=== PATIENT | female | born 1930 | race Caucasian/White ===

== ENCOUNTER 2017-07-12 14:13 | Inpatient (IN) ==
[2017-07-12] MEDS ORDERED: 0.9 % SODIUM CHLORIDE 1,000 ML IV ONE ×2 (14:41→16:56)
--- NOTE | 2017-07-12 14:59 | Emergency Department Note ---
Weakness HPI - General Chief complaint: Weakness Stated complaint: weakness, possible UTI, shaking Time Seen by Provider: 07/12/17 14:23 Source: patient Mode of arrival: wheelchair Limitations: no limitations - History of Present Illness HPI Narrative: 87-year-old female with a history of increased generalized weakness over the past several days. Vital signs are stable patient is afebrile. Denies any urgency frequency or dysuria patient herself states she does not have any weakness she has been able to get up and use the bathroom and sit up however his son states that noticed that she has had some more increased weakness over the past 3 days. There was no loss of consciousness she did have a fall approximately 3 days ago did not hurt herself in any way complaining of no injuries patient denies any cough there is been no chest pain no shortness of breath. Eyes upper respiratory type signs or symptoms - Related Data Home Medications Medication Instructions Recorded Confirmed Carvedilol [Coreg] 25 mg PO BID 04/17/16 07/12/17 Furosemide [Lasix] 40 mg PO BID 04/17/16 07/12/17 HYDROcodone/APAP 5/325MG [[place] 0.5 - 1 tab PO Q4-6HP PRN 04/17/16 07/12/17 5/325Mg] Lisinopril [Zestril] 10 mg PO DAILY 04/17/16 07/12/17 Spironolactone [Aldactone] 25 mg PO BID 04/17/16 07/12/17 cholecalciferol (vitamin D3) 1,000 1,000 unit PO QDAY 90 Days 08/10/16 07/12/17 unit tablet Previous Rx's Medication Instructions Recorded aspirin 81 mg tablet,delayed 81 mg PO DAILY #90 tab 09/14/16 release Allergies Allergy/AdvReac Type Severity Reaction Status Date / Time No Known Drug Allergies Allergy Verified 08/10/16 13:25 Review of Systems All systems ED: reviewed and negative except as stated. Constitutional: Denies: fever, chills Eyes: Denies: eye pain ENT ED: Denies: ear pain Cardiovascular: Denies: chest pain, palpitations Respiratory: Denies: cough Gastrointestinal: Denies: abdominal pain Genitourinary: Denies: urgency Musculoskeletal: Denies: back pain Integumentary: Denies: rash Neurological: Denies: headache, weakness, numbness, paresthesias, confusion, abnormal gait, vertigo Psychiatric: Denies: anxiety Endocrine: Denies: fatigue Hematological/Lymphatic: Denies: easy bleeding Allergic/Immunologic: Denies: facial swelling Past Medical History - Past Medical History Medical history: Reports: arthritis, CHF, coronary artery disease, GERD, hyperlipidemia, hypertension, renal disease Surgical history ED: Reports: angioplasty/stent, other (history of coronary artery disease, venous stasis wound care) Psychiatric history: Reports: anxiety - Social History smoking status: Former smoker Alcohol use: Reports: None Drug use: Reports: none Physical Exam - General Limitations: no limitations Course Vital Signs Temperature 97.5 F 07/12/17 14:14 Pulse Rate 79 07/12/17 14:14 Respiratory Rate 20 07/12/17 14:14 Blood Pressure 86/44 07/12/17 14:14 Pulse Oximetry (%) 100 07/12/17 14:14 Temperature 97.5 F 07/12/17 14:14 Pulse Rate 88 07/12/17 15:46 Respiratory Rate 22 07/12/17 15:46 Blood Pressure 102/37 07/12/17 15:46 Pulse Oximetry (%) 99 07/12/17 15:46 Weakness - MDM Narrative Medical decision making narrative: kidney functin high with cr of 8.3 and bun 153. co2 of 7. abg pending. wbc elevated at 16,000. Dr Garza consulted and he will consult. Hospitalist Dr Bobo consulted as well and has accepted the patient pt states dnr and dni - Lab Data Result diagrams: 07/12/17 14:47 07/12/17 15:12 Lab Results 07/12/17 07/12/17 07/12/17 Range/Units 14:47 14:47 14:47 WBC 16.4 H (4.5-11.0) K/mcL RBC 3.81 L (4.00-5.20) M/mcL Hgb 11.5 L (12.0-15.0) g/dL Hct 33.7 L (36.0-48.0) % POC Hct TNP MCV 88.4 (80.0-100.0) fL MCH 30.2 (26.0-34.0) pg MCHC 34.1 (31.0-36.0) g/dL RDW 14.6 H (11.5-14.5) % Plt Count 246 (140-440) K/mcL MPV 8.2 (7.4-10.4) fL Gran % 86.9 H (38.0-78.0) % Lymph % (Auto) 6.6 L (15.5-49.0) % [place] % (Auto) 5.6 (1.0-12.0) % Eos % (Auto) 0.6 (0.0-7.0) % Baso % (Auto) 0.3 (0.0-2.0) % Gran # 14.3 H (1.8-8.0) K/mcL Lymph # (Auto) 1.1 L (1.5-4.8) K/mcL [place] # (Auto) 0.9 (0.1-0.9) K/mcL Eos # (Auto) 0.1 (0.0-0.7) K/mcL Baso # (Auto) 0 (0.0-0.3) K/mcL VBG Lactic Acid 1.0 (0.5-2.2) mmol/L POC Sodium TNP Sodium (133-145) mmol/L POC Potassium TNP Potassium (3.3-5.1) mmol/L POC Chloride TNP Chloride (96-108) mmol/L Carbon Dioxide (22-30) mmol/L POC Total CO2 TNP Anion Gap (8-16) POC BUN TNP BUN (8-23) mg/dl Creatinine (0.6-1.1) mg/dl POC Creatinine TNP GFR Calculation Glucose (70-105) mg/dL POC Glucose TNP Calcium (8.6-10.4) mg/dl POC WB Ioniz Calcium TNP Total Bilirubin (0.0-1.0) mg/dL AST (0-37) U/l ALT (0-40) U/l Alkaline Phosphatase (39-117) U/L Total Protein (5.9-8.4) gm/dL Albumin (3.2-5.2) gm/dL Globulin (2.2-3.7) gm/dL Albumin/Globulin Ratio (1.0-2.3) Urine Color Urine Appearance Urine pH (5.0-9.0) Ur Specific [place] (1.000-1.035) Urine Protein (NEG) mg/dL Urine Glucose (UA) (NEG) mg/dL Urine Ketones (NEG) mg/dL Urine Occult Blood (<0.03) mg/dL Urine Nitrate (NEG) Urine Bilirubin (NEG) mg/dL Urine Urobilinogen (NEG) mg/dL Ur Leukocyte Esterase (NEG) /uL Ur Culture Indicated? 07/12/17 07/12/17 Range/Units 15:12 15:20 WBC (4.5-11.0) K/mcL RBC (4.00-5.20) M/mcL Hgb (12.0-15.0) g/dL Hct (36.0-48.0) % POC Hct 32.0 L MCV (80.0-100.0) fL MCH (26.0-34.0) pg MCHC (31.0-36.0) g/dL RDW (11.5-14.5) % Plt Count (140-440) K/mcL MPV (7.4-10.4) fL Gran % (38.0-78.0) % Lymph % (Auto) (15.5-49.0) % [place] % (Auto) (1.0-12.0) % Eos % (Auto) (0.0-7.0) % Baso % (Auto) (0.0-2.0) % Gran # (1.8-8.0) K/mcL Lymph # (Auto) (1.5-4.8) K/mcL [place] # (Auto) (0.1-0.9) K/mcL Eos # (Auto) (0.0-0.7) K/mcL Baso # (Auto) (0.0-0.3) K/mcL VBG Lactic Acid (0.5-2.2) mmol/L POC Sodium 129 L Sodium 128 L (133-145) mmol/L POC Potassium 5.2 H Potassium 5.5 H (3.3-5.1) mmol/L POC Chloride 110 H Chloride 97 (96-108) mmol/L Carbon Dioxide 7 L* (22-30) mmol/L POC Total CO2 8 L* Anion Gap 24.0 H (8-16) POC BUN > 140 H* BUN 153 H* (8-23) mg/dl Creatinine 8.3 H* (0.6-1.1) mg/dl POC Creatinine 9.7 H* GFR Calculation 4 Glucose 83 (70-105) mg/dL POC Glucose 78 Calcium 8.3 L (8.6-10.4) mg/dl POC WB Ioniz Calcium 1.01 L Total Bilirubin 0.2 (0.0-1.0) mg/dL AST 11 (0-37) U/l ALT 10 (0-40) U/l Alkaline Phosphatase 82 (39-117) U/L Total Protein 7.1 (5.9-8.4) gm/dL Albumin 3.8 (3.2-5.2) gm/dL Globulin 3.3 (2.2-3.7) gm/dL Albumin/Globulin Ratio 1.2 (1.0-2.3) Urine Color Yellow Urine Appearance Hazy Urine pH 5.0 (5.0-9.0) Ur Specific [place] 1.013 (1.000-1.035) Urine Protein Neg (NEG) mg/dL Urine Glucose (UA) Negative (NEG) mg/dL Urine Ketones Neg (NEG) mg/dL Urine Occult Blood Neg (<0.03) mg/dL Urine Nitrate Neg (NEG) Urine Bilirubin Neg (NEG) mg/dL Urine Urobilinogen Neg (NEG) mg/dL Ur Leukocyte Esterase Neg (NEG) /uL Ur Culture Indicated? No Disposition Pt seen by ATTENDANT CAMPGROUND/PA only: No Clinical Impression: Acute renal failure Qualifiers: Acute renal failure type: unspecified Qualified Code(s): N17.9 - Acute kidney failure, unspecified Disposition: Xfer As Inpt ([facility]) Condition: Undetermined Referrals: Krysten Romero DNP, [employer]CHIE[employer] SAMPLE CLERK [Primary Care Provider] -
--- NOTE | 2017-07-12 15:17 | XRay Report ---
CLINICAL INFORMATION: Weakness COMPARISON: 04/19/2016 FINDINGS: Moderate cardiomegaly is unchanged. Mediastinum and pulmonary vessels are normal. Minor right basilar atelectasis. No infiltrates or effusions IMPRESSION: Moderate stable cardiomegaly no CHF or other acute process Interpreted and Authenticated by: Vincenzo Prabhakar 07/12/17
[2017-07-12 15:21] LABS: Basophils # (Auto) 0 K/mcL (0.0-0.3); Basophils % (Auto) 0.3 % (0.0-2.0); Eosinophils # (Auto) 0.1 K/mcL (0.0-0.7); Eosinophils % (Auto) 0.6 % (0.0-7.0); Granulocytes % (Auto) 86.9 % (38.0-78.0); Lymphocytes # (Auto) 1.1 K/mcL (1.5-4.8); Lymphocytes % (Auto) 6.6 % (15.5-49.0); Mean Cell Volume 88.4 fL (80.0-100.0); Mean Corpuscular HGB Conc 34.1 g/dL (31.0-36.0); Mean Corpuscular Hemoglobin 30.2 pg (26.0-34.0); Monocytes # (Auto) 0.9 K/mcL (0.1-0.9); Monocytes % (Auto) 5.6 % (1.0-12.0); Platelet Count 246 K/mcL (140-440); RBC 3.81 M/mcL (4.00-5.20); Red Cell Distribution Width 14.6 % (11.5-14.5)
[2017-07-12 15:43] LABS: ALT/SGPT 10 U/l (0-40); Albumin 3.8 gm/dL (3.2-5.2); Albumin/Globulin Ratio 1.2 (1.0-2.3); Alkaline Phosphatase 82 U/L (39-117)
[2017-07-12 15:45] LABS: Blood Urea Nitrogen 153 mg/dl (8-23)
[2017-07-12 15:46] LABS: Appearance,Urine HAZY; Bilirubin,Urine NEG (NEG); Color,Urine YELLOW; Glucose,Urine (UA) NEGATIVE (NEG); Leukocyte Esterase,Urine NEG /uL (NEG); Nitrate,Urine NEG (NEG); Protein,Urine NEG (NEG); Specific Gravity,Urine 1.013 (1.000-1.035); Urine Blood NEG mg/dL (<0.03); Urobilinogen,Urine NEG (NEG)
--- NOTE | 2017-07-12 17:16 | Internal Med History&Physical ---
Medical - H&P: HPI Patient information: Note initiated : 07/12/17 at 5:11 pm Patient: Rabia Seals 87 y/o F admitted on for Weakness, Possible UTI, Shaking. History of present illness: Ms. Seals is a 87 year old with a history of dementia, congestive heart failure, mild chronic kidney disease. She reportedly lives at [facility] assisted [facility]. We have a history that she fell about 3 days ago as she was walking out of the bathroom. She states she landed on her behind, and really did not hurt herself. Her son apparently asked that she be transported to the ER today for evaluation, as he was told that she was getting weaker. The patient denies that she has been feeling weak. She says she really does not know why she was sent over. ER evaluation showed very severe acute on chronic kidney failure. She also was noted to have significant leukocytosis, and severely elevated anion gap. She is admitted for further evaluation and treatment of her renal failure. Otherwise, the patient is a very poor historian. She believes she has chronic diarrhea, but otherwise cannot recall any recent fevers or chills, headaches or dizziness, new eye or ear symptoms, sore throat or cough. She denies chest pain or palpitations, shortness of breath or wheezing, abdominal pain, nausea or vomiting, constipation, dysuria. However, she also cannot recall the year, and does not believe that she takes daily medications, although [facility] records indicate she takes numerous medications every day. Medical History Anemia (Chronic) Arthritis (Chronic) CHF (congestive heart failure) (Chronic) Cellulitis (Chronic) Chronic kidney disease (Chronic) Daytime sleepiness (Chronic) sometimes when she is not sleeping well at night Edema of lower extremity (Chronic) wears ENEDINA hose daily History of tobacco use (Chronic) Quit smoking after first MD, 2006 Joint pain (Chronic) left wrist; generalized pain Lower extremity edema (Chronic) Memory difficulties (Chronic) Other primary cardiomyopathies (Chronic) Rheumatoid arthritis (Chronic) Vitamin D deficiency (Chronic) Acute kidney failure (Resolved) Cellulitis (Resolved) Cellulitis of leg without foot, right (Resolved) Dermatitis neglecta (Resolved) Dermatitis of multiple sites (Resolved) Dermatitis, exfoliative from erythematous condition on 10-19% body surface ( Resolved) Hypotension (Resolved) Perforation of intestine (Resolved) perforated duodenal ulcer Venous stasis dermatitis of both lower extremities (Resolved) Volume depletion (Resolved) Surgical History History of intestinal surgery (Chronic) duodenal perforation repair Hx of appendectomy (Chronic) S/P wrist surgery (Chronic) 2013, following fracture of left wrist, broke after fall Medications: Vitamin D 1000 units daily Aspirin 81 mg daily Aldactone 25 mg twice daily Lisinopril 10 mg daily [place] 5/320 5/2-1 tab every 4 hours as needed Lasix 40 mg p.o. twice daily Coreg 25 mg p.o. twice daily Allergies: No known drug allergies Family History Unknown Arthritis Most of family Family/Other Hypertension, essential Children Migraines Children Daughter Liver failure, Onset Age: 53 following taking "strong Tylenol" with subsequent liver failure Social History housing: assisted living facility lives independently: Yes marital status: smoking status: Former smoker quit date: 10/25/06 alcohol intake frequency: does not drink substance use type: does not use Medical - H&P: Meds Home Medications Medication Instructions Recorded Confirmed Type Carvedilol [Coreg] 25 mg PO BID 04/17/16 07/12/17 History Furosemide [Lasix] 40 mg PO DAILY 04/17/16 07/12/17 History HYDROcodone/APAP 5/325MG [[place] 0.5 - 1 tab PO Q4-6HP PRN 04/17/16 07/12/17 History 5/325Mg] Lisinopril [Zestril] 10 mg PO DAILY 04/17/16 07/12/17 History Spironolactone [Aldactone] 25 mg PO BID 04/17/16 07/12/17 History cholecalciferol (vitamin D3) 1,000 1,000 unit PO QDAY 90 Days 08/10/16 07/12/17 History unit tablet aspirin 81 mg tablet,delayed 81 mg PO DAILY #90 tab 09/14/16 07/12/17 Rx release Allergies Allergy/AdvReac Type Severity Reaction Status Date / Time No Known Drug Allergies Allergy Verified 08/10/16 13:25 Medical - H&P: Exam - Constitutional Vitals: Temp Pulse Resp BP Pulse Ox 97.5 F 88 22 102/37 99 07/12/17 14:14 07/12/17 15:46 07/12/17 15:46 07/12/17 15:46 07/12/17 15:46 Afebrile. Heart rate ranges from 68-92. Respiratory rate ranges from 14-27. Blood pressure ranges from 86-116/44-56. O2 saturation ranges from 84% to 100% on room air. She is very alert and pleasant, and quite forgetful. Head: Normocephalic, atraumatic. Ears: TMs and canals are clear. Eyes: PERRLA, EOMI, anicteric. Pharynx: She is missing numerous teeth in the upper jaw, and some that are left are in only fair condition. Mucosa is somewhat dry in appearance. Neck: Is supple, without obvious lymphadenopathy, JVD, thyromegaly, bruits. Cardiac exam shows regular rate and rhythm with normal S1 and S2, without obvious murmurs, rubs, gallops. Lungs are clear to auscultation, without rales, rhonchi, wheezes. Abdomen: Is soft and nontender without obvious masses. Bowel sounds are active. Extremities: Shows chronic stasis dermatitis of the distal extremities. She has a trace edema. Neurologic exam: She is alert and oriented to the hospital and to herself. She knows the month of June, but cannot recall the year or the date. Motor exam is grossly nonfocal. Medical - H&P: Reslt - Labs CBC & Chem 7: 07/12/17 14:47 07/12/17 15:12 Labs: Short CBC 07/12/17 Range/Units 14:47 WBC 16.4 H (4.5-11.0) K/mcL Hgb 11.5 L (12.0-15.0) g/dL Hct 33.7 L (36.0-48.0) % Plt Count 246 (140-440) K/mcL BMP 07/12/17 15:12 Sodium 128 L Potassium 5.5 H Chloride 97 Carbon Dioxide 7 L* BUN 153 H* Creatinine 8.3 H* Glucose 83 Calcium 8.3 L Liver Function 07/12/17 Range/Units 15:12 Total Bilirubin 0.2 (0.0-1.0) mg/dL AST 11 (0-37) U/l ALT 10 (0-40) U/l Alkaline Phosphatase 82 (39-117) U/L Albumin 3.8 (3.2-5.2) gm/dL Urine 07/12/17 Range/Units 15:20 Urine Color Yellow Urine Appearance Hazy Urine pH 5.0 (5.0-9.0) Ur Specific [place] 1.013 (1.000-1.035) Urine Protein Neg (NEG) mg/dL Urine Glucose (UA) Negative (NEG) mg/dL July 12: Troponin is borderline at 0.04 ProBNP is elevated at 1797 CBC: White blood cell count 16,000, him hemoglobin 11.5, hematocrit 33, platelets 246,000. Granulocyte count elevated at 14,000. Lactic acid normal at 1.0 Anion gap is elevated at 24. Ionized calcium is low at 1.01 Chest x-ray: Stable cardiomegaly. No infiltrates. Medical - H&P: A/P (1) Metabolic acidosis Current visit: Yes Status: Acute (2) Acute renal failure Current visit: Yes Status: Acute (3) Rheumatoid arthritis Current visit: No Status: Chronic (4) Memory difficulties Current visit: No Status: Chronic - Narrative A/P Narrative: #1. Renal. Patient presents with acute on chronic renal failure. There is presumably at least some degree of dehydration, likely due to current medications, and probable poor p.o. intake. -Hold all diuretics and KASHMIR inhibitors. -Hydrate with D5W plus sodium bicarb. -Nephrology consult. -Check follow-up labs, including pH, phosphorus. -Monitor labs, including calcium and phosphorus. - 2. Recent fall. No injuries reported. 3. Hematologic. Leukocytosis. It is unclear if she has an underlying infection. Check follow-up chest x-ray after hydration. Blood cultures are pending. -Chronic anemia, likely due to chronic renal disease. 4. Cardiac. Reported history of coronary artery disease and CHF. -Continue Coreg as tolerated, but hold spironolactone, lisinopril, Lasix. It is possible that if her cardiac output is declining that that is compromising her renal function, although she does not have any overt signs of CHF at this time. -Later this evening blood pressures are continuing to run quite low, in spite of IV fluid hydration. You have some concerns about possible sepsis. We will start norepinephrine drip to support blood pressure, and increase IV fluid rate. I will also add empiric antibiotics. 5. CODE STATUS: Her chart indicates she has a DNR CODE STATUS. Nursing staff did contact her son/POA, and he further clarified that they would like full code except no intubation. 6. DVT prophylaxis: Subcu heparin. 7. Neurologic. Patient has history of, as well as symptoms of, significant dementia. 8. Rheumatologic. History of rheumatoid arthritis, without current complaints of pain. 9. History of vitamin D deficiency. This visit has taken approximately 75 minutes so far, to review the patient's records, review her case with the ER MD, as well as nephrology, interview and examine her, and write orders.
[2017-07-12] MEDS ORDERED: DOCUSATE SODIUM 100 MG CAPSULE PO PRN (17:55)
[2017-07-12] MEDS ORDERED: MAGNESIUM HYDROXIDE 30 ML ORAL.SUSP PO PRN (17:55)
[2017-07-12] MEDS ORDERED: HYDROcodone/APAP 5/325MG TABLET PO PRN ×2 (17:55→21:25)
[2017-07-12] MEDS ORDERED: ACETAMINOPHEN 325 MG TABLET PO PRN (17:55)
[2017-07-12] MEDS ORDERED: NALOXONE HCL 0.4 MG/ML VIAL IV PRN (17:55)
[2017-07-12] MEDS ORDERED: SODIUM BICARBONATE VIAL 150 MEQ in DEXTROSE 5% IN WATER 850 ML IV SCH (18:00)
[2017-07-12] MEDS: HEPARIN 5,000 UNIT/ML VIAL SQ SCH (20:47)
[2017-07-12] MEDS: SODIUM BICARBONATE VIAL 150 MEQ in DEXTROSE 5% IN WATER 850 ML IV SCH (20:48)
[2017-07-12] MEDS ORDERED: NOREPINEPHRINE BITARTRATE 8 MG in 0.9 % SODIUM CHLORIDE 242 ML IV SCH (21:00)
[2017-07-12] MEDS ORDERED: NOREPINEPHRINE BITARTRATE 4 MG/4 ML AMPUL IV ONE (21:15)
[2017-07-12] MEDS: 0.9 % SODIUM CHLORIDE 250 ML IV SCH (22:00)
--- NOTE | 2017-07-12 22:19 | Nephrology Consult Note ---
History of Present Illness - Reason for Consult Patient information: Note initiated : 07/12/17 at 10:17 pm Service Date, if different from initiated Date: [] Patient: Rabia Seals 87 y/o F admitted on 07/12/17 for Weakness, Possible UTI, Shaking. Chief Complaint: [] Consult date: 07/12/17 acute renal failure - Chief Complaint Acute renal failure, hyperkalemia, anion gap metabolic acidosis, hyponatrem - History of Present Illness 87 year old with a history of dementia, congestive heart failure, CKD stage 3 ( SCr 1.3, eGFR 37 ml/min by CKD-EPI), who resides at [facility], was sent to ER after she reportedly fell 3 days ago. Labs done in ER showed SCr upto 8 mg/dl, with mild hyperkalemia and anion gap metabolic acidosis, mild hyponatremia. She is presently receiving isotonic bicarbonate saline and low dose pressors due to hypotension. Bond catheter is draining clear urine. She also noted to have leukocytosis without c/o fever. She was on loop diuretic, aldactone and lisinopril that have been stopped Review of Systems ROS unobtainable: due to mental status Past History Past medical history: Medical History Anemia (Chronic) Arthritis (Chronic) CHF (congestive heart failure) (Chronic) Cellulitis (Chronic) Chronic kidney disease (Chronic) Daytime sleepiness (Chronic) sometimes when she is not sleeping well at night Edema of lower extremity (Chronic) wears ENEDINA hose daily History of tobacco use (Chronic) Quit smoking after first [place], 2006 Joint pain (Chronic) left wrist; generalized pain Lower extremity edema (Chronic) Memory difficulties (Chronic) Other primary cardiomyopathies (Chronic) Rheumatoid arthritis (Chronic) Vitamin D deficiency (Chronic) Acute kidney failure (Resolved) Cellulitis (Resolved) Cellulitis of leg without foot, right (Resolved) Dermatitis neglecta (Resolved) Dermatitis of multiple sites (Resolved) Dermatitis, exfoliative from erythematous condition on 10-19% body surface ( Resolved) Hypotension (Resolved) Perforation of intestine (Resolved) perforated duodenal ulcer Venous stasis dermatitis of both lower extremities (Resolved) Volume depletion (Resolved) Past surgical history: Surgical History History of intestinal surgery (Chronic) duodenal perforation repair Hx of appendectomy (Chronic) S/P wrist surgery (Chronic) 2013, following fracture of left wrist, broke after fall Past family history: Family History Family/Other Hypertension, essential Children Migraines Children Daughter Liver failure, Onset Age: 53 following taking "strong Tylenol" with subsequent liver failure Past social history: Social History housing: assisted living facility lives independently: Yes marital status: smoking status: ex-smoker no h/o alcohol abuse Medications and Allergies Home Medications Medication Instructions Recorded Confirmed Type Carvedilol [Coreg] 25 mg PO BID 04/17/16 07/12/17 History Furosemide [Lasix] 40 mg PO DAILY 04/17/16 07/12/17 History HYDROcodone/APAP 5/325MG [[place] 0.5 - 1 tab PO Q4-6HP PRN 04/17/16 07/12/17 History 5/325Mg] Lisinopril [Zestril] 10 mg PO DAILY 04/17/16 07/12/17 History Spironolactone [Aldactone] 25 mg PO BID 04/17/16 07/12/17 History cholecalciferol (vitamin D3) 1,000 1,000 unit PO QDAY 90 Days 08/10/16 07/12/17 History unit tablet aspirin 81 mg tablet,delayed 81 mg PO DAILY #90 tab 09/14/16 07/12/17 Rx release Allergies Allergy/AdvReac Type Severity Reaction Status Date / Time No Known Drug Allergies Allergy Verified 08/10/16 13:25 Exam - Vital Signs Vital signs: Temp Pulse Resp BP Pulse Ox 97.6 F 85 22 95/37 99 07/12/17 17:42 07/12/17 20:44 07/12/17 17:50 07/12/17 20:44 07/12/17 20:44 Results - Lab Results 07/12/17 14:47 07/12/17 15:12 Most recent lab results Calcium 8.3 mg/dl (8.6-10.4) L 07/12/17 15:12 Phosphorus 8.4 mg/dL (2.7-4.5) H* 07/12/17 14:47 Assessment and Plan (1) Acute renal failure HOANG / ARF, possibly oliguric, pre-renal due to diuretics vs ATN due to hypotension. Agree with continuing current IVF regimen as tolerated with regards to her volume status. Follow BMP, VBG, CPK, urine sodium in am, check renal sonogram. At present, there is no indication for dialysis. Status: Acute Qualifiers: Acute renal failure type: unspecified Qualified Code(s): N17.9 - Acute kidney failure, unspecified
[2017-07-12] MEDS: PIPERACILLIN SODIUM/TAZOBACTAM 2.25 GM in DEXTROSE 5% IN WATER 50 ML IV SCH (22:28)
[2017-07-12] MEDS ORDERED: PIPERACILLIN SODIUM/TAZOBACTAM 2.25 GM VIAL IV ONE (22:29)
[2017-07-13 00:01] LABS: ABG Methemoglobin 0.3 % (0.4-1.5); VBG HCO3 8.7 mmol/L (24.0-28.0); VBG Oxygen Saturation 86.4 % (40.0-70.0); VBG PCO2 21.2 mmHg (41.0-51.0); VBG PH 7.23 U (7.32-7.42); VBG PO2 73 mmHg (25-40); VBG Total CO2 9.4 mmol/L (25.0-29.0)
[2017-07-13 00:18] LABS: Creatine Kinase 189 IU/L (24-170)
[2017-07-13 00:32] LABS: Blood Urea Nitrogen 140 mg/dl (8-23)
[2017-07-13] MEDS: NOREPINEPHRINE BITARTRATE 8 MG in 0.9 % SODIUM CHLORIDE 242 ML IV SCH ×4 (01:18→17:41)
[2017-07-13] MEDS: SODIUM BICARBONATE VIAL 150 MEQ in DEXTROSE 5% IN WATER 850 ML IV SCH ×5 (01:19→19:00)
[2017-07-13 06:06] LABS: Basophils # (Auto) 0 K/mcL (0.0-0.3); Basophils % (Auto) 0.3 % (0.0-2.0); Eosinophils # (Auto) 0.2 K/mcL (0.0-0.7); Eosinophils % (Auto) 1.8 % (0.0-7.0); Granulocytes % (Auto) 78.1 % (38.0-78.0); Lymphocytes % (Auto) 11.2 % (15.5-49.0); Mean Cell Volume 88.5 fL (80.0-100.0); Mean Corpuscular HGB Conc 33.9 g/dL (31.0-36.0); Monocytes # (Auto) 0.8 K/mcL (0.1-0.9); Monocytes % (Auto) 8.6 % (1.0-12.0); Platelet Count 210 K/mcL (140-440); RBC 3.26 M/mcL (4.00-5.20); Red Cell Distribution Width 14.3 % (11.5-14.5)
[2017-07-13 07:40] LABS: ALT/SGPT 7 U/l (0-40); Albumin 2.9 gm/dL (3.2-5.2); Albumin/Globulin Ratio 1.2 (1.0-2.3); Alkaline Phosphatase 64 U/L (39-117); Bilirubin,Direct < 0.2 mg/dL (0.0-0.3); Blood Urea Nitrogen 137 mg/dl (8-23); Gamma Glutamyl Transpeptidase 10 U/L (5-36); Magnesium 1.8 mg/dL (1.6-2.5); Uric Acid 8.4 mg/dL (2.5-8.0)
--- NOTE | 2017-07-13 07:58 | XRay Report ---
CLINICAL INFORMATION: Leukocytosis and hypoxia COMPARISON: 04/19/2016 and 07/12/2017. FINDINGS: The heart is mildly enlarged, but unchanged. Mediastinum is unremarkable. Upper lobe pulmonary vessels are slightly distended comparing the 2016 study. There is no edema or infiltrates. Pleural spaces are normal IMPRESSION: Borderline CHF or volume overload. No infiltrates identified Interpreted and Authenticated by: Vincenzo Prabhakar 07/13/17
--- NOTE | 2017-07-13 08:43 | Ultrasound Report ---
CLINICAL INFORMATION: Acute renal failure COMPARISON: None. FINDINGS: Both kidneys are normal and symmetric in size, position, configuration and echotexture: The right is 11 x 5.4 cm and the left is 11.4 x 5.9 cm. There are no focal cystic/ solid lesions or evidence of stone. No hydronephrosis. Arterial blood flow is grossly normal on color and spectral Doppler. Urinary bladder is 283 cc. No focal bladder lesions. Incidental note: cholelithiasis. Gallbladder otherwise normal - no evidence of cholecystitis IMPRESSION: Both kidneys and urinary bladder are normal. Cholelithiasis incidentally noted Interpreted and Authenticated by: Vincenzo Prabhakar 07/13/17
[2017-07-13] MEDS: HEPARIN 5,000 UNIT/ML VIAL SQ SCH ×2 (09:05→21:20)
[2017-07-13] MEDS: SEVELAMER 800 MG TABLET PO SCH ×3 (09:05→17:41)
[2017-07-13] MEDS: VITAMIN D3 1,000 UNIT TABLET PO SCH (09:05)
[2017-07-13] MEDS: ASPIRIN 81 MG TAB.CHEW PO SCH (09:05)
[2017-07-13] MEDS: PIPERACILLIN SODIUM/TAZOBACTAM 2.25 GM in DEXTROSE 5% IN WATER 50 ML IV SCH ×2 (09:06→21:20)
[2017-07-13] MEDS: 0.9 % SODIUM CHLORIDE 250 ML IV SCH ×2 (10:12→22:48)
[2017-07-13] MEDS ORDERED: SODIUM BICARBONATE VIAL 150 MEQ in DEXTROSE 5% IN WATER 850 ML IV SCH (13:00)
--- NOTE | 2017-07-13 17:44 | Internal Med Progress Note ---
Medical - PN: Subj Patient information: Note initiated : 07/13/17 at 10:30 am Patient: Rabia Seals 87 y/o F admitted on 07/12/17 for Weakness, Possible UTI, Shaking. Interval history: July 12, 2017: History of present illness: Ms. Seals is a 87 year old with a history of dementia, congestive heart failure, mild chronic kidney disease. She reportedly lives at [facility]. We have a history that she fell about 3 days ago as she was walking out of the bathroom. She states she landed on her behind, and really did not hurt herself. Her son apparently asked that she be transported to the ER today for evaluation, as he was told that she was getting weaker. The patient denies that she has been feeling weak. She says she really does not know why she was sent over. ER evaluation showed very severe acute on chronic kidney failure. She also was noted to have significant leukocytosis, and severely elevated anion gap. She is admitted for further evaluation and treatment of her renal failure. Otherwise, the patient is a very poor historian. She believes she has chronic diarrhea, but otherwise cannot recall any recent fevers or chills, headaches or dizziness, new eye or ear symptoms, sore throat or cough. She denies chest pain or palpitations, shortness of breath or wheezing, abdominal pain, nausea or vomiting, constipation, dysuria. However, she also cannot recall the year, and does not believe that she takes daily medications, although [facility] records indicate she takes numerous medications every day. July 13: The patient did fairly well overnight. She did drop her blood pressure a few times initially, requiring the institution of vasopressors, but responded very quickly to these. She has continued to deny significant symptoms, but staff noted that she was too weak for them to get her up this morning, even with the help with physical therapy. Otherwise, she denies fever or chills, headaches or dizziness, chest pain or shortness of breath, GI or symptoms. However, this afternoon, the patient did have 3 bouts of impressive watery diarrhea. - Constitutional Vitals: Vital Signs Temp Pulse Resp BP Pulse Ox 98.9 F 69 20 111/55 97 07/13/17 07:02 07/13/17 07:02 07/13/17 07:02 07/13/17 07:02 07/13/17 07:02 Period Temp Pulse Resp BP Sys/Marino Pulse Ox Last 24 Hr 95.9 F-99.3 F 62-93 16-22 82-159/35-132 96-100 Intake and Output 07/12/17 07/13/17 07/13/17 21:59 05:59 13:59 Intake Total 230 / 2230 953 / 953 1280 / 1280 Output Total 1000 / 1000 Balance 230 / 2230 -47 / -47 1280 / 1280 Weight 164 lb 164 lb Intake & Output: Intake & Output 07/12/17 07/13/17 07/13/17 21:59 05:59 13:59 Intake Total 230 / 2230 953 / 953 1280 / 1280 Output Total 1000 / 1000 Balance 230 / 2230 -47 / -47 1280 / 1280 Weight 164 lb 164 lb Intake: IV 230 / 230 953 / 953 1280 / 1280 Sodium Chloride 0.9% 250 230 / 230 ml @ 20 mls/hr IV . [id number] [facility] Rx#:[id number] Zosyn 2.25 gm In Dextrose 50 / 50 50 / 50 5% in Water 50 ml @ 100 mls/hr IV Q12H KLAUD[facility] Rx#: [id number] Sodium Bicarbonate Vial 230 / 230 903 / 903 1000 / 1000 150 Meq In Dextrose 5% in Water 850 ml @ 200 mls/ hr IV Q8H KLA[facility] Rx#: [id number] Output: Urine Catheter Amount 1000 / 1000 Patient is awake and alert, in no acute distress. She continues to be quite forgetful. Neck is supple without obvious JVD or lymphadenopathy. Cardiac exam shows regular rate and rhythm. Lungs are clear to auscultation. Abdomen is soft and nontender. Extremities: Show just a trace edema at the ankles. Neurologic exam: Patient is extremely forgetful, but otherwise pleasant and cooperative. Motor exam is grossly nonfocal. Medical - PN: Obj Da - Labs CBC & Chem 7: 07/13/17 03:40 07/13/17 03:40 Labs: Abnormal Lab Results 07/13/17 07/13/17 07/12/17 03:40 03:40 23:15 RBC 3.26 L Hgb 9.8 L Hct 28.9 L Gran % 78.1 H Lymph % (Auto) 11.2 L Lymph # (Auto) 1.0 L ABG Methemoglobin VBG pH VBG pCO2 VBG pO2 VBG HCO3 VBG Total CO2 VBG O2 Saturation VBG Base Excess Carboxyhemoglobin Total Hemoglobin Sodium 132 L Carbon Dioxide 12 L 8 L* Anion Gap 22.0 H 26.0 H BUN 137 H* 140 H* Creatinine 7.0 H* 7.4 H* Glucose 139 H 114 H Uric Acid 8.4 H Calcium 7.3 L 7.5 L Phosphorus 5.7 H Total Creatine Kinase Troponin T NT-Pro-B Natriuret Pep Total Protein 5.3 L Albumin 2.9 L Triglycerides 183 H 07/12/17 07/12/17 07/12/17 23:15 23:15 18:12 RBC Hgb Hct Gran % Lymph % (Auto) Lymph # (Auto) ABG Methemoglobin 0.3 L VBG pH 7.23 L VBG pCO2 21.2 L VBG pO2 73 H VBG HCO3 8.7 L* VBG Total CO2 9.4 L* VBG O2 Saturation 86.4 H VBG Base Excess -17.0 L Carboxyhemoglobin 4.7 H Total Hemoglobin 9.8 L Sodium Carbon Dioxide Anion Gap BUN Creatinine Glucose Uric Acid Calcium Phosphorus Total Creatine Kinase 189 H Troponin T NT-Pro-B Natriuret Pep 1797.0 H Total Protein Albumin Triglycerides 07/12/17 18:12 RBC Hgb Hct Gran % Lymph % (Auto) Lymph # (Auto) ABG Methemoglobin VBG pH VBG pCO2 VBG pO2 VBG HCO3 VBG Total CO2 VBG O2 Saturation VBG Base Excess Carboxyhemoglobin Total Hemoglobin Sodium Carbon Dioxide Anion Gap BUN Creatinine Glucose Uric Acid Calcium Phosphorus Total Creatine Kinase Troponin T 0.04 H* NT-Pro-B Natriuret Pep Total Protein Albumin Triglycerides July 13: ABG: PH 7.49, PCO2 25, PO2 85, bicarb 19, O2 saturation 99% Renal ultrasound: Shows normal-appearing kidneys and bladder. Gallstones are noted within the gallbladder without evidence of cholecystitis. Chest x-ray: Shows mild cardiomegaly. Upper lobe pulmonary vessels slightly distended, consistent with possible mild CHF. July 12: Troponin is borderline at 0.04 ProBNP is elevated at 1797 CBC: White blood cell count 16,000, him hemoglobin 11.5, hematocrit 33, platelets 246,000. Granulocyte count elevated at 14,000. Lactic acid normal at 1.0 Anion gap is elevated at 24. Ionized calcium is low at 1.01 Chest x-ray: Stable cardiomegaly. No infiltrates. Meds: Medications Acetaminophen (Tylenol) 650 mg PO Q6HP PRN PRN Reason: PAIN/FEVER > 101 Hydrocodone Bitart/Acetaminophen ([place] 5/325mg) 1 tab PO Q4-6HP PRN PRN Reason: Pain Aspirin (Aspirin) 81 mg PO DAILY [facility] Last Admin: 07/13/17 09:05 Dose: 81 mg Docusate Sodium (Colace) 100 mg PO BID PRN PRN Reason: Constipation Heparin Sodium (Porcine) (Heparin) 5,000 unit SQ Q12 [facility] Last Admin: 07/13/17 09:05 Dose: 5,000 unit Sodium Bicarbonate 150 meq/ (Dextrose) 1,000 mls @ 200 mls/hr IV Q8H [facility] Last Admin: 07/13/17 06:56 Dose: 200 mls/hr Sodium Chloride (Sodium Chloride 0.9%) 250 mls @ 20 mls/hr IV .[id number] [facility] Last Admin: 07/13/17 10:12 Dose: 20 mls/hr Piperacillin Sod/Tazobactam (Sod 2.25 gm/ Dextrose) 50 mls @ 100 mls/hr IV Q12H [facility] Last Infusion: 07/13/17 09:59 Dose: Infused Norepinephrine Bitartrate 8 mg (/ Sodium Chloride) 250 mls @ 18.75 mls/hr IV Q14H [facility]; 10 MCG/MIN PRN Reason: Protocol Last Admin: 07/13/17 02:05 Dose: Not Given Magnesium Hydroxide (Milk Of Magnesia) 30 ml PO DAILYP PRN PRN Reason: Constipation Naloxone HCl (Narcan) 0.1 mg IV Q2MIN PRN PRN Reason: Opiate Reversal Ondansetron HCl (Zofran) 4 mg IV Q4HP PRN PRN Reason: Nausea And Vomiting Sevelamer Carbonate (Renvela) 800 mg PO TIDCC [facility] Last Admin: 07/13/17 09:05 Dose: 800 mg Vitamin D (Vitamin D3) 1,000 unit PO QDAY [facility] Last Admin: 07/13/17 09:05 Dose: 1,000 unit - ABG Interpretation ABG results: 09/18/17 23:15 ABG Methemoglobin 0.3 L VBG pH 7.23 L VBG pCO2 21.2 L VBG pO2 73 H VBG HCO3 8.7 L* VBG Total CO2 9.4 L* VBG O2 Saturation 86.4 H VBG Base Excess -17.0 L Medical - PN: A/P - Time Spent With Patient Total time spent is greater than 50% in coordination of care (as documented) at patient's floor/unit and/or counseling patient: 25 - 35 minutes (1) Metabolic acidosis Status: Acute Current Visit: Yes (2) Acute renal failure Status: Acute Current Visit: Yes (3) Rheumatoid arthritis Status: Chronic Current Visit: No (4) Memory difficulties Status: Chronic Current Visit: No - Narrative A/P Narrative: #1. Renal. Patient presents with acute on chronic renal failure. There is presumably at least some degree of dehydration, likely due to current medications, and probable poor p.o. intake. -Renal function is starting to improve today. Acidosis appears much improved. We will start to wean rate of IV fluids. Nephrology following. Consult appreciated. -Monitor labs, including calcium and phosphorus. - 2. Recent fall. No injuries reported. 3. Hematologic. Leukocytosis. It is unclear if she has an underlying infection. Check follow-up chest x-ray after hydration. Blood cultures are pending. I did start antibiotics yesterday, as I was worried about occult pneumonia, given her leukocytosis and hypotension indicating possible sepsis. She is much improved at the moment. I will continue antibiotics pending culture results. -Chronic anemia, likely due to chronic renal disease. 4. Cardiac. Reported history of coronary artery disease and CHF. -All heart medicines are on hold regarding hypotension. We will resume Coreg when it appears that can be tolerated. Otherwise diuretics and KASHMIR inhibitor are on hold. -Chest x-ray suggestive of mild early pulmonary vascular congestion. Decrease IV fluid rate and follow. -Continue levo fed as needed to maintain an MAP of greater than 65. 5. CODE STATUS: Her chart indicates she has a DNR CODE STATUS. Nursing staff did contact her son/POA, and he further clarified that they would like full code except no intubation. 6. DVT prophylaxis: Subcu heparin. 7. Neurologic. Patient has history of, as well as symptoms of, significant dementia. 8. Rheumatologic. History of rheumatoid arthritis, without current complaints of pain. 9. History of vitamin D deficiency. #10. GI. Patient reports a history of chronic diarrhea. She had 3 very large watery stools today. We will send for stool studies. If she has chronic significant diarrhea, this might explain her progressive dehydration ultimately leading to renal failure. If she continues to have profuse diarrhea, request GI consult. Medical - PN: Qual - Stroke Symptom Onset Unknown: No - VTE Deep Vein Thrombosis/Pulmonary Embolism Present on Admission: No
[2017-07-13] MEDS: CALCIUM CARBONATE 500 MG TAB.CHEW CHEWED SCH (17:51)
--- NOTE | 2017-07-13 18:13 | Nephrology Progress Note ---
Subjective Patient information: Note initiated : 07/13/17 at 2:42 pm Service Date, if different from initiated Date: [] Patient: Rabia Seals a 87 y/o F admitted on 07/12/17 for Weakness,Possible UTI ,Shaking/Acute Renal Failure. Chief Complaint: [] Principal diagnosis: Acute renal failure Interval history: Rabia is tolerating isotonic bicarbonate infusion. No c/o dyspnea, or signs of fluid overload. Renal function has improved slightly, hyperkalemia resolved, hyponatremia and metabolic acidosis has improved as well. Urine output from admission to floor to 4 am today was about 1 liter Objective - Vital Signs Vital signs: Vital Signs Temp Pulse Pulse Pulse Resp BP BP 07/13/17 13:00 66 121/57 07/13/17 12:50 78 111/83 07/13/17 12:40 66 127/55 07/13/17 12:30 72 116/52 07/13/17 12:20 70 121/51 07/13/17 12:10 66 117/56 07/13/17 12:00 97.0 F 70 20 07/13/17 11:50 67 117/48 07/13/17 11:40 65 110/48 07/13/17 11:30 66 115/49 07/13/17 11:20 72 121/44 07/13/17 11:10 69 118/48 07/13/17 11:00 73 101/63 07/13/17 10:50 79 118/53 07/13/17 10:40 82 115/50 07/13/17 10:30 81 107/56 07/13/17 10:20 80 72/43 07/13/17 10:10 63 82/52 07/13/17 10:00 74 105/75 07/13/17 09:50 72 112/58 07/13/17 09:40 72 133/76 07/13/17 09:30 80 114/52 07/13/17 09:20 72 108/68 07/13/17 09:10 71 126/48 07/13/17 09:00 72 119/47 07/13/17 08:50 78 111/55 07/13/17 08:30 71 136/64 07/13/17 08:20 71 114/48 07/13/17 08:10 77 112/62 07/13/17 08:00 77 106/48 07/13/17 07:50 74 122/55 07/13/17 07:40 72 107/56 07/13/17 07:30 69 114/51 07/13/17 07:20 70 107/49 07/13/17 07:10 69 103/48 07/13/17 07:02 98.9 F 69 20 111/55 07/13/17 07:00 69 117/48 07/13/17 06:00 68 07/13/17 05:50 69 16 07/13/17 05:38 68 07/13/17 05:37 68 07/13/17 05:10 07/13/17 05:00 70 07/13/17 04:50 71 16 07/13/17 04:40 70 16 07/13/17 04:30 68 16 07/13/17 04:20 70 16 07/13/17 04:10 70 07/13/17 04:01 95.9 F L 07/13/17 04:00 99.3 F H 73 18 07/13/17 03:50 79 07/13/17 03:30 82 07/13/17 03:29 83 07/13/17 03:20 77 07/13/17 03:10 77 07/13/17 03:00 79 07/13/17 02:50 71 07/13/17 02:40 76 07/13/17 02:35 74 07/13/17 02:30 73 07/13/17 02:25 73 07/13/17 02:20 69 07/13/17 02:15 72 07/13/17 02:10 73 07/13/17 02:00 72 07/13/17 01:55 72 07/13/17 01:50 71 07/13/17 01:45 77 07/13/17 01:42 73 07/13/17 01:40 70 07/13/17 01:35 71 07/13/17 01:30 76 07/13/17 00:00 96.9 F L 77 18 07/12/17 23:00 77 07/12/17 22:45 83 07/12/17 22:30 78 07/12/17 22:25 80 07/12/17 22:20 77 07/12/17 22:15 80 07/12/17 22:10 81 07/12/17 22:05 86 07/12/17 22:00 77 07/12/17 20:44 85 07/12/17 20:28 07/12/17 20:15 89 07/12/17 20:00 86 07/12/17 19:45 91 H 07/12/17 19:30 90 07/12/17 19:15 93 H 07/12/17 19:00 91 H 07/12/17 18:45 92 H 07/12/17 18:30 62 07/12/17 17:50 88 22 102/37 07/12/17 17:42 97.6 F 16 BP Pulse Ox 07/13/17 13:00 07/13/17 12:50 07/13/17 12:40 07/13/17 12:30 07/13/17 12:20 07/13/17 12:10 07/13/17 12:00 97 07/13/17 11:50 07/13/17 11:40 07/13/17 11:30 07/13/17 11:20 07/13/17 11:10 07/13/17 11:00 07/13/17 10:50 07/13/17 10:40 07/13/17 10:30 07/13/17 10:20 07/13/17 10:10 07/13/17 10:00 07/13/17 09:50 07/13/17 09:40 07/13/17 09:30 07/13/17 09:20 07/13/17 09:10 07/13/17 09:00 07/13/17 08:50 07/13/17 08:30 07/13/17 08:20 07/13/17 08:10 07/13/17 08:00 07/13/17 07:50 07/13/17 07:40 07/13/17 07:30 07/13/17 07:20 07/13/17 07:10 07/13/17 07:02 97 07/13/17 07:00 07/13/17 06:00 113/51 97 07/13/17 05:50 118/49 99 07/13/17 05:38 120/51 07/13/17 05:37 108/55 07/13/17 05:10 105/48 09/19/17 05:00 107/50 99 17 04:50 106/50 98 17 04:40 106/53 98 17 04:30 115/47 97 17 04:20 107/52 99 17 04:10 107/54 98 17 04:01 07/13/17 04:00 132/65 98 07/13/17 03:50 120/53 17 03:30 110/69 17 03:29 110/69 98 17 03:20 115/56 17 03:10 127/70 07/13/17 03:00 114/57 07/13/17 02:50 106/54 99 07/13/17 02:40 122/54 98 17 02:35 112/58 100 17 02:30 114/57 17 02:25 110/50 07/13/17 02:20 131/54 07/13/17 02:15 100/46 98 17 02:10 93/41 97 17 02:00 95/39 96 07/13/17 01:55 105/39 97 17 01:50 93/52 96 17 01:45 86/39 97 17 01:42 88/42 97 17 01:40 92/38 96 17 01:35 89/35 96 17 01:30 85/36 96 17 00:00 95/44 97 18/17 23:00 106/43 99 18/17 22:45 112/63 99 18/17 22:30 96/47 100 18/17 22:25 103/48 99 18/17 22:20 106/46 100 18/17 22:15 155/132 100 18/17 22:10 159/132 99 18/17 22:05 98/83 99 18/17 22:00 89/43 100 18/17 20:44 95/37 99 18/17 20:28 82/42 18/17 20:15 87/74 07/12/17 20:00 83/46 100 07/12/17 19:45 116/42 07/12/17 19:30 88/40 07/12/17 19:15 92/50 07/12/17 19:00 91/41 07/12/17 18:45 99/52 07/12/17 18:30 94/49 07/12/17 17:50 99 07/12/17 17:42 94/49 100 Intake and Output 07/13/17 07/13/17 07/13/17 05:59 13:59 21:59 Intake Total 953 / 953 1430 / 1430 Output Total 1000 / 1000 Balance -47 / -47 1430 / 1430 Intake: IV 953 / 953 1280 / 1280 Sodium Chloride 0.9% 250 230 / 230 ml @ 20 mls/hr IV . [id number] [facility] Rx#:[id number] Zosyn 2.25 gm In Dextrose 50 / 50 50 / 50 5% in Water 50 ml @ 100 mls/hr IV Q12H [facility] Rx#: [id number] Sodium Bicarbonate Vial 903 / 903 1000 / 1000 150 Meq In Dextrose 5% in Water 850 ml @ 200 mls/ hr IV Q8H [facility] Rx#: [id number] Oral 150 / 150 Output: Urine Catheter Amount 1000 / 1000 Other: Meal Breakfast Percent of Meal Consumed 50% Feeding Ability Assist with Tray Set Up # Bowel Movements 1 Weight 164 lb Intake & Output: Intake & Output 07/13/17 07/13/17 07/13/17 05:59 13:59 21:59 Intake Total 953 / 953 1430 / 1430 Output Total 1000 / 1000 Balance -47 / -47 1430 / 1430 Weight 164 lb Intake: IV 953 / 953 1280 / 1280 Sodium Chloride 0.9% 250 230 / 230 ml @ 20 mls/hr IV . [id number] [facility] Rx#:[id number] Zosyn 2.25 gm In Dextrose 50 / 50 50 / 50 5% in Water 50 ml @ 100 mls/hr IV Q12H [facility] Rx#: [id number] Sodium Bicarbonate Vial 903 / 903 1000 / 1000 150 Meq In Dextrose 5% in Water 850 ml @ 200 mls/ hr IV Q8H [facility] Rx#: [id number] Oral 150 / 150 Output: Urine Catheter Amount 1000 / 1000 Other: Meal Breakfast Percent of Meal Consumed 50% Feeding Ability Assist with Tray Set Up # Bowel Movements 1 - Lab 07/13/17 03:40 07/13/17 03:40 Most recent lab results Calcium 7.3 mg/dl (8.6-10.4) L 07/13/17 03:40 Phosphorus 5.7 mg/dL (2.7-4.5) H 07/13/17 03:40 Magnesium 1.8 mg/dL (1.6-2.5) 07/13/17 03:40 Assessment and Plan (1) Acute renal failure continue current IVF regimen. Follow I/O, BMP. At present, there is no indication for dialysis Status: Acute Qualifiers: Qualified Code(s): N17.9 - Acute kidney failure, unspecified
[2017-07-14] MEDS: SODIUM BICARBONATE VIAL 150 MEQ in DEXTROSE 5% IN WATER 850 ML IV SCH ×2 (02:00→11:14)
[2017-07-14 05:56] LABS: Basophils # (Auto) 0 K/mcL (0.0-0.3); Basophils % (Auto) 0.3 % (0.0-2.0); Eosinophils # (Auto) 0.1 K/mcL (0.0-0.7); Eosinophils % (Auto) 0.9 % (0.0-7.0); Granulocytes % (Auto) 82.1 % (38.0-78.0); Lymphocytes # (Auto) 1.2 K/mcL (1.5-4.8); Lymphocytes % (Auto) 9.9 % (15.5-49.0); Mean Corpuscular HGB Conc 34.2 g/dL (31.0-36.0); Mean Corpuscular Hemoglobin 30.1 pg (26.0-34.0); Monocytes # (Auto) 0.8 K/mcL (0.1-0.9); Monocytes % (Auto) 6.8 % (1.0-12.0); Platelet Count 233 K/mcL (140-440); RBC 3.46 M/mcL (4.00-5.20); Red Cell Distribution Width 14.4 % (11.5-14.5)
[2017-07-14] MEDS: NOREPINEPHRINE BITARTRATE 8 MG in 0.9 % SODIUM CHLORIDE 242 ML IV SCH ×2 (06:00→20:18)
[2017-07-14] MEDS: ONDANSETRON 4 MG/2 ML VIAL IV PRN ×2 (06:23→11:21)
[2017-07-14 06:28] LABS: ALT/SGPT 8 U/l (0-40); Albumin 2.7 gm/dL (3.2-5.2); Alkaline Phosphatase 60 U/L (39-117); Bilirubin,Direct < 0.2 mg/dL (0.0-0.3); Blood Urea Nitrogen 108 mg/dl (8-23); Gamma Glutamyl Transpeptidase 11 U/L (5-36); Magnesium 1.5 mg/dL (1.6-2.5); Uric Acid 7.8 mg/dL (2.5-8.0)
[2017-07-14] MEDS ORDERED: POTASSIUM CHLORIDE 40 MEQ in DEXTROSE 5% IN WATER 500 ML IV ONE (07:30)
[2017-07-14] MEDS: PIPERACILLIN SODIUM/TAZOBACTAM 2.25 GM in DEXTROSE 5% IN WATER 50 ML IV SCH ×2 (09:37→21:53)
[2017-07-14] MEDS: SEVELAMER 800 MG TABLET PO SCH ×3 (09:37→16:43)
[2017-07-14] MEDS: HEPARIN 5,000 UNIT/ML VIAL SQ SCH ×2 (09:37→21:54)
[2017-07-14] MEDS: CALCIUM CARBONATE 500 MG TAB.CHEW CHEWED SCH ×3 (09:37→16:43)
[2017-07-14] MEDS: ASPIRIN 81 MG TAB.CHEW PO SCH (09:38)
[2017-07-14] MEDS: VITAMIN D3 1,000 UNIT TABLET PO SCH (09:43)
--- NOTE | 2017-07-14 09:54 | Internal Med Progress Note ---
Medical - PN: Subj Patient information: Note initiated : 07/14/17 at 9:54 am Patient: Rabia Seals 87 y/o F admitted on 07/12/17 for Weakness,Possible UTI ,Shaking/Acute Renal Failure. Interval history: July 12, 2017: History of present illness: Ms. Seals is a 87 year old with a history of dementia, congestive heart failure, mild chronic kidney disease. She reportedly lives at [facility]. We have a history that she fell about 3 days ago as she was walking out of the bathroom. She states she landed on her behind, and really did not hurt herself. Her son apparently asked that she be transported to the ER today for evaluation, as he was told that she was getting weaker. The patient denies that she has been feeling weak. She says she really does not know why she was sent over. ER evaluation showed very severe acute on chronic kidney failure. She also was noted to have significant leukocytosis, and severely elevated anion gap. She is admitted for further evaluation and treatment of her renal failure. Otherwise, the patient is a very poor historian. She believes she has chronic diarrhea, but otherwise cannot recall any recent fevers or chills, headaches or dizziness, new eye or ear symptoms, sore throat or cough. She denies chest pain or palpitations, shortness of breath or wheezing, abdominal pain, nausea or vomiting, constipation, dysuria. However, she also cannot recall the year, and does not believe that she takes daily medications, although doctors hospital records indicate she takes numerous medications every day. July 13: The patient did fairly well overnight. She did drop her blood pressure a few times initially, requiring the institution of vasopressors, but responded very quickly to these. She has continued to deny significant symptoms, but staff noted that she was too weak for them to get her up this morning, even with the help with physical therapy. Otherwise, she denies fever or chills, headaches or dizziness, chest pain or shortness of breath, GI or symptoms. However, this afternoon, the patient did have 3 bouts of impressive watery diarrhea. July 14: This morning, the patient was feeling quite fatigued. She had a large amount of watery diarrhea last night, so a rectal tube was placed, but then it was removed as she apparently did not have any diarrhea by 8:00 this morning. However after receiving oral contrast for CT scan, she again developed profuse watery diarrhea. Potassium level was quite low this morning, and was replaced IV. Blood cultures are growing a gram-positive nader today. The patient continues to be awake and alert. She is too weak to stand up on her own, and requires significant assistance, but still insists that she is fine. She denies fever chills, headaches or dizziness, chest pain or shortness of breath, abdominal pain, nausea or vomiting. She believes her diarrhea is chronic. She denies dysuria. - Constitutional Vitals: Vital Signs Temp Pulse Resp BP Pulse Ox 98.4 F 76 18 107/47 97 07/14/17 04:00 07/14/17 00:11 07/14/17 04:00 07/14/17 05:00 07/14/17 04:00 Period Temp Pulse Resp BP Sys/Marino Pulse Ox Last 24 Hr 96.9 F-99.2 F 63-89 18-20 72-148/42-98 94-97 Intake and Output 07/13/17 07/14/17 07/14/17 21:59 05:59 13:59 Intake Total 1150 / 1150 1370 / 1370 1015 / 1015 Output Total 1350 / 1350 1550 / 1550 Balance -200 / -200 -180 / -180 1015 / 1015 Weight 166 lb Intake & Output: Intake & Output 07/13/17 07/14/17 07/14/17 21:59 05:59 13:59 Intake Total 1150 / 1150 1370 / 1370 1015 / 1015 Output Total 1350 / 1350 1550 / 1550 Balance -200 / -200 -180 / -180 1015 / 1015 Weight 166 lb Intake: IV 1050 / 1050 1250 / 1250 1015 / 1015 Sodium Chloride 0.9% 250 250 / 250 ml @ 20 mls/hr IV . [id number] [facility] Rx#:[id number] Levophed 8 mg In Sodium 15 / 15 Chloride 0.9% 242 ml @ 10 MCG/MIN 18.75 mls/hr IV Q14H [facility] Rx#:[id number] Zosyn 2.25 gm In Dextrose 50 / 50 5% in Water 50 ml @ 100 mls/hr IV Q12H [facility] Rx#: [id number] Sodium Bicarbonate Vial 1000 / 1000 150 Meq In Dextrose 5% in Water 850 ml @ 150 mls/ hr IV Q7H [facility] Rx#: [id number] Oral 100 / 100 120 / 120 Output: Urine Catheter Amount 1350 / 1350 1550 / 1550 Other: Meal Lunch Percent of Meal Consumed 0% Feeding Ability Assist with Tray Set Up # Bowel Movements 1 # of times incontinent of 1 1 Bowels She is awake and alert. She is continues to be quite forgetful. Neck is supple without JVD. Cardiac exam shows regular rate and rhythm. Lungs are clear to auscultation. Abdomen is soft, but continues to have mild diffuse tenderness, without guarding or rebound. Extremities show trace edema. Medical - PN: Obj Da - Labs CBC & Chem 7: 07/14/17 03:43 07/14/17 03:43 Labs: Abnormal Lab Results 07/14/17 07/14/17 07/13/17 03:43 03:43 03:40 WBC 11.9 H RBC 3.46 L 3.26 L Hgb 10.4 L 9.8 L Hct 30.5 L 28.9 L Gran % 82.1 H 78.1 H Lymph % (Auto) 9.9 L 11.2 L Gran # 9.8 H Lymph # (Auto) 1.2 L 1.0 L ABG Methemoglobin VBG pH VBG pCO2 VBG pO2 VBG HCO3 VBG Total CO2 VBG O2 Saturation VBG Base Excess Carboxyhemoglobin Total Hemoglobin Sodium Potassium 2.8 L* Chloride 91 L Carbon Dioxide 32 H Anion Gap BUN 108 H* Creatinine 5.7 H* Glucose 118 H Uric Acid Calcium 7.2 L Phosphorus Magnesium 1.5 L Total Creatine Kinase Troponin T NT-Pro-B Natriuret Pep Total Protein 5.3 L Albumin 2.7 L Triglycerides 07/13/17 07/12/17 07/12/17 03:40 23:15 23:15 WBC RBC Hgb Hct Gran % Lymph % (Auto) Gran # Lymph # (Auto) ABG Methemoglobin 0.3 L VBG pH 7.23 L VBG pCO2 21.2 L VBG pO2 73 H VBG HCO3 8.7 L* VBG Total CO2 9.4 L* VBG O2 Saturation 86.4 H VBG Base Excess -17.0 L Carboxyhemoglobin 4.7 H Total Hemoglobin 9.8 L Sodium 132 L Potassium Chloride Carbon Dioxide 12 L 8 L* Anion Gap 22.0 H 26.0 H BUN 137 H* 140 H* Creatinine 7.0 H* 7.4 H* Glucose 139 H 114 H Uric Acid 8.4 H Calcium 7.3 L 7.5 L Phosphorus 5.7 H Magnesium Total Creatine Kinase Troponin T NT-Pro-B Natriuret Pep Total Protein 5.3 L Albumin 2.9 L Triglycerides 183 H 07/12/17 07/12/17 07/12/17 23:15 18:12 18:12 WBC RBC Hgb Hct Gran % Lymph % (Auto) Gran # Lymph # (Auto) ABG Methemoglobin VBG pH VBG pCO2 VBG pO2 VBG HCO3 VBG Total CO2 VBG O2 Saturation VBG Base Excess Carboxyhemoglobin Total Hemoglobin Sodium Potassium Chloride Carbon Dioxide Anion Gap BUN Creatinine Glucose Uric Acid Calcium Phosphorus Magnesium Total Creatine Kinase 189 H Troponin T 0.04 H* NT-Pro-B Natriuret Pep 1797.0 H Total Protein Albumin Triglycerides July 14: Stool for Hemoccult was positive today. C. difficile screen is negative. Blood culture is growing a gram-positive bacillus in 1 bottle, ID to follow. Abdominal CT with oral contrast, but without IV contrast: Shows cholelithiasis, small amount of pelvic ascites, stable 5 cm right ovarian tumor and 5 cm simple cyst of the left ovary, sigmoid diverticulosis, small bilateral pleural effusions, moderate L2 compression fracture. July 13: ABG: PH 7.49, PCO2 25, PO2 85, bicarb 19, O2 saturation 99% Renal ultrasound: Shows normal-appearing kidneys and bladder. Gallstones are noted within the gallbladder without evidence of cholecystitis. Chest x-ray: Shows mild cardiomegaly. Upper lobe pulmonary vessels slightly distended, consistent with possible mild CHF. July 12: Troponin is borderline at 0.04 ProBNP is elevated at 1797 CBC: White blood cell count 16,000, him hemoglobin 11.5, hematocrit 33, platelets 246,000. Granulocyte count elevated at 14,000. Lactic acid normal at 1.0 Anion gap is elevated at 24. Ionized calcium is low at 1.01 Chest x-ray: Stable cardiomegaly. No infiltrates. Meds: Medications Acetaminophen (Tylenol) 650 mg PO Q6HP PRN PRN Reason: PAIN/FEVER > 101 Last Admin: 09/20/17 09:38 Dose: 650 mg Hydrocodone Bitart/Acetaminophen (Penelope 5/325mg) 1 tab PO Q4-6HP PRN PRN Reason: Pain Aspirin (Aspirin) 81 mg PO DAILY [facility] Last Admin: 07/14/17 09:38 Dose: 81 mg Calcium Carbonate/Glycine (Tums) 1,000 mg CHEWED TIDCC [facility] Last Admin: 07/14/17 09:37 Dose: 1,000 mg Diphenoxylate HCl/Atropine (Lomotil) 1 tab PO Q4HP PRN PRN Reason: Diarrhea Docusate Sodium (Colace) 100 mg PO BID PRN PRN Reason: Constipation Heparin Sodium (Porcine) (Heparin) 5,000 unit SQ Q12 [facility] Last Admin: 07/14/17 09:37 Dose: 5,000 unit Sodium Chloride (Sodium Chloride 0.9%) 250 mls @ 20 mls/hr IV .[id number] [facility] Last Admin: 07/13/17 22:48 Dose: 20 mls/hr Piperacillin Sod/Tazobactam (Sod 2.25 gm/ Dextrose) 50 mls @ 100 mls/hr IV Q12H [facility] Last Admin: 07/14/17 09:37 Dose: 100 mls/hr Norepinephrine Bitartrate 8 mg (/ Sodium Chloride) 250 mls @ 18.75 mls/hr IV Q14H [facility]; 10 MCG/MIN PRN Reason: Protocol Last Titration: 07/14/17 08:00 Dose: 0 mcg/min, 0 mls/hr Sodium Bicarbonate 150 meq/ (Dextrose) 1,000 mls @ 150 mls/hr IV Q7H [facility] Last Admin: 07/14/17 02:00 Dose: 150 mls/hr Potassium Chloride 40 meq/ (Dextrose) 520 mls @ 130 mls/hr IV ONCE ONE Stop: 07/14/17 11:29 Last Admin: 07/14/17 09:37 Dose: 130 mls/hr Magnesium Hydroxide (Milk Of Magnesia) 30 ml PO DAILYP PRN PRN Reason: Constipation Naloxone HCl (Narcan) 0.1 mg IV Q2MIN PRN PRN Reason: Opiate Reversal Ondansetron HCl (Zofran) 4 mg IV Q4HP PRN PRN Reason: Nausea And Vomiting Last Admin: 09/20/17 06:23 Dose: 4 mg Sevelamer Carbonate (Renvela) 800 mg PO TIDCC [facility] Last Admin: 07/14/17 09:37 Dose: 800 mg Vitamin D (Vitamin D3) 1,000 unit PO QDAY [facility] Last Admin: 07/14/17 09:43 Dose: 1,000 unit - ABG Interpretation ABG results: 07/12/17 23:15 ABG Methemoglobin 0.3 L VBG pH 7.23 L VBG pCO2 21.2 L VBG pO2 73 H VBG HCO3 8.7 L* VBG Total CO2 9.4 L* VBG O2 Saturation 86.4 H VBG Base Excess -17.0 L Medical - PN: A/P - Time Spent With Patient Total time spent is greater than 50% in coordination of care (as documented) at patient's floor/unit and/or counseling patient: 25 - 35 minutes (1) Metabolic acidosis Status: Acute Current Visit: Yes (2) Acute renal failure Status: Acute Current Visit: Yes (3) Rheumatoid arthritis Status: Chronic Current Visit: No (4) Memory difficulties Status: Chronic Current Visit: No - Narrative A/P Narrative: #1. Renal. Patient presents with acute on chronic renal failure. There is presumably at least some degree of dehydration, likely due to current medications, and probable poor p.o. intake. -Renal function is improving, acidosis appears resolved.. IV fluids changed to normal saline. Nephrology following. Consult appreciated. -Monitor labs, including calcium and phosphorus. - 2. Recent fall. No injuries reported. 3. Hematologic. Leukocytosis. Blood cultures appear to be growing a gram-positive anaerobe. Awaiting identification. Continue IV Zosyn. -Chronic anemia, likely due to chronic renal disease. 4. Cardiac. Reported history of coronary artery disease and CHF. -All heart medicines are on hold regarding hypotension. We will resume Coreg when it appears that can be tolerated. Otherwise diuretics and KASHMIR inhibitor are on hold. I believe she is now completely weaned off the levo fed. -Chest x-ray suggestive of mild early pulmonary vascular congestion. Decreased IV fluid rate and follow. 5. CODE STATUS: Her chart indicates she has a DNR CODE STATUS. Nursing staff did contact her son/POA, and he further clarified that they would like full code except no intubation. 6. DVT prophylaxis: Subcu heparin. 7. Neurologic. Patient has history of, as well as symptoms of, significant dementia. 8. Rheumatologic. History of rheumatoid arthritis, without current complaints of pain. 9. History of vitamin D deficiency. #10. GI. Patient reports a history of chronic diarrhea. If she has chronic significant diarrhea, this might explain her progressive dehydration ultimately leading to renal failure. If she continues to have profuse diarrhea, request GI consult. Medical - PN: Qual - Stroke Symptom Onset Unknown: No - VTE Deep Vein Thrombosis/Pulmonary Embolism Present on Admission: No
[2017-07-14] MEDS ORDERED: METOCLOPRAMIDE 10 MG/2 ML VIAL IV ONE (10:34)
[2017-07-14] MEDS: 0.9 % SODIUM CHLORIDE 250 ML IV SCH ×2 (11:13→22:41)
--- NOTE | 2017-07-14 12:59 | Nephrology Progress Note ---
Subjective Patient information: Note initiated : 07/14/17 at 12:56 pm Service Date, if different from initiated Date: [] Patient: Rabia Seals 87 y/o F admitted on 07/12/17 for Weakness,Possible UTI ,Shaking/Acute Renal Failure. Chief Complaint: [] Principal diagnosis: Acute renal failure Interval history: Has diarrhea, planned to have CT w/ po contrast. One iv access was lost. No c/o dyspnea, urine output has improved Objective - Vital Signs Vital signs: Vital Signs Temp Pulse Pulse Resp BP BP Pulse Ox 07/14/17 12:00 98.6 F 81 17 117/65 95 07/14/17 10:58 120/69 07/14/17 10:44 126/65 07/14/17 10:03 119/58 07/14/17 09:30 108/52 07/14/17 09:00 87/53 07/14/17 08:30 101/45 07/14/17 08:29 89/44 07/14/17 08:01 98.4 F 16 140/62 95 07/14/17 08:00 71 18 95 07/14/17 07:00 119/54 07/14/17 06:30 111/53 07/14/17 06:11 98/83 07/14/17 06:00 98/83 07/14/17 05:00 107/47 07/14/17 04:00 98.4 F 18 94/42 97 07/14/17 03:00 91/46 07/14/17 02:01 127/54 07/14/17 01:02 128/56 07/14/17 00:11 98.5 F 76 18 96 07/14/17 00:01 117/53 07/13/17 23:33 134/56 07/13/17 23:01 119/59 07/13/17 22:31 112/49 07/13/17 22:01 103/53 07/13/17 21:31 131/56 07/13/17 21:02 110/83 07/13/17 21:00 99.2 F H 83 20 137/60 94 07/13/17 20:31 138/70 07/13/17 20:01 137/60 07/13/17 19:31 132/97 07/13/17 19:02 137/53 07/13/17 18:31 131/98 07/13/17 18:02 145/65 07/13/17 17:20 78 122/59 07/13/17 17:10 73 107/53 07/13/17 17:00 71 122/52 07/13/17 16:40 72 119/55 07/13/17 16:30 86 128/74 07/13/17 16:20 78 135/82 07/13/17 16:10 72 133/58 07/13/17 16:00 96.9 F L 76 20 118/55 07/13/17 15:50 72 129/54 07/13/17 15:40 78 121/95 07/13/17 15:30 78 113/68 07/13/17 15:20 80 123/89 07/13/17 15:10 79 116/63 07/13/17 15:00 89 103/84 07/13/17 14:50 72 144/57 07/13/17 14:40 75 104/49 07/13/17 14:30 76 133/52 07/13/17 14:00 76 148/51 07/13/17 13:50 69 125/54 07/13/17 13:40 79 128/49 07/13/17 13:30 67 132/50 07/13/17 13:20 68 132/52 07/13/17 13:10 72 122/53 07/13/17 13:00 66 121/57 Intake and Output 07/13/17 07/14/17 07/14/17 21:59 05:59 13:59 Intake Total 1150 / 1150 1370 / 1370 2313 / 2313 Output Total 1350 / 1350 1550 / 1550 Balance -200 / -200 -180 / -180 2313 / 2313 Intake: IV 1050 / 1050 1250 / 1250 2313 / 2313 Sodium Chloride 0.9% 250 250 / 250 248 / 248 ml @ 20 mls/hr IV . [id number] [facility] Rx#:[id number] Levophed 8 mg In Sodium 15 / 15 Chloride 0.9% 242 ml @ 10 MCG/MIN 18.75 mls/hr IV Q14H [facility] Rx#:[id number] Zosyn 2.25 gm In Dextrose 50 / 50 50 / 50 5% in Water 50 ml @ 100 mls/hr IV Q12H [facility] Rx#: [id number] Sodium Bicarbonate Vial 1000 / 1000 1000 / 1000 150 Meq In Dextrose 5% in Water 850 ml @ 150 mls/ hr IV Q7H [facility] Rx#: [id number] Oral 100 / 100 120 / 120 Output: Urine Catheter Amount 1350 / 1350 1550 / 1550 Other: Meal Lunch Percent of Meal Consumed 0% Feeding Ability Assist with Tray Set Up # Bowel Movements 1 # of times incontinent of 1 1 2 Bowels Weight 166 lb Intake & Output: Intake & Output 07/13/17 07/14/17 07/14/17 21:59 05:59 13:59 Intake Total 1150 / 1150 1370 / 1370 2313 / 2313 Output Total 1350 / 1350 1550 / 1550 Balance -200 / -200 -180 / -180 2313 / 2313 Weight 166 lb Intake: IV 1050 / 1050 1250 / 1250 2313 / 2313 Sodium Chloride 0.9% 250 250 / 250 248 / 248 ml @ 20 mls/hr IV . [id number] [facility] Rx#:[id number] Levophed 8 mg In Sodium 15 / 15 Chloride 0.9% 242 ml @ 10 MCG/MIN 18.75 mls/hr IV Q14H [facility] Rx#:[id number] Zosyn 2.25 gm In Dextrose 50 / 50 50 / 50 5% in Water 50 ml @ 100 mls/hr IV Q12H [facility] Rx#: [id number] Sodium Bicarbonate Vial 1000 / 1000 1000 / 1000 150 Meq In Dextrose 5% in Water 850 ml @ 150 mls/ hr IV Q7H [facility] Rx#: [id number] Oral 100 / 100 120 / 120 Output: Urine Catheter Amount 1350 / 1350 1550 / 1550 Other: Meal Lunch Percent of Meal Consumed 0% Feeding Ability Assist with Tray Set Up # Bowel Movements 1 # of times incontinent of 1 1 2 Bowels - Lab 07/14/17 03:43 07/14/17 03:43 Most recent lab results Calcium 7.2 mg/dl (8.6-10.4) L 07/14/17 03:43 Phosphorus 4.3 mg/dL (2.7-4.5) 07/14/17 03:43 Magnesium 1.5 mg/dL (1.6-2.5) L 07/14/17 03:43 Assessment and Plan (1) Acute renal failure HOANG / ARf: non-oliguric, renal function improving, acidosis, change to iv NS at lower rate. Received iv potassium and mag repletion. Follow I/O, BMP Status: Acute Qualifiers: Acute renal failure type: unspecified Qualified Code(s): N17.9 - Acute kidney failure, unspecified
[2017-07-14] MEDS: 0.9 % SODIUM CHLORIDE 1,000 ML IV SCH ×2 (13:00→21:55)
[2017-07-14] MEDS: DIPHENOXYLATE HCL/ATROPINE 1 TABLET PO PRN ×2 (13:35→17:33)
--- NOTE | 2017-07-14 14:47 | Cat Scan Report ---
CLINICAL INFORMATION: Diarrhea dehydration abdominal pain COMPARISON: Abdomen and pelvic CT. Six years prior - 09/21/2011 TECHNIQUE: 2.5 mm helical slices were obtained from the mid heart through the subtrochanteric regions. Following reconstruction, 2.5 mm sagittal, coronal and axial reformatted images were processed and reviewed at bone, lung and soft tissue windows. FINDINGS: Small bilateral pleural effusions are present. There is minor bibasilar atelectasis. The heart is mildly enlarged. Heavy calcification within the mitral valve - as previously seen. Images through the abdomen show a 17 mm solitary cholesterol stone in the gallbladder neck. The gallbladder is otherwise normal - no evidence of wall thickening to suggest cholecystitis. Intrahepatic and common bile ducts are normal caliber : CBD is 6 mm. The noncontrasted liver, both kidneys, adrenal glands, spleen, pancreas and aorta are normal in size, configuration and attenuation without focal lesion. Sigmoid diverticulosis is noted: The remainder of the colon, small bowel and stomach are grossly normal. 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 A five centimeter simple cyst in the left ovary is also stable. Small amount of free fluid in the deep true pelvis and perihepatic space - it has actually decreased from the previous study. There is no free air. Bone windows show moderate L2 compression right ureter - new from the previous study. Diffuse osteoporosis noted IMPRESSION: 1. Cholelithiasis. Gallbladder and bile ducts are otherwise normal 2. Small amount of ascites in the perihepatic and deep true pelvis - etiology uncertain although it may be related to the solid right ovarian tumor 3. 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 4. Sigmoid diverticulosis - no evidence of diverticulitis 5. Small bilateral pleural effusions - typically due to CHF 6. Moderate L2 compression fracture. Although this is new from the remote CT, the precise chronicity is unknown Interpreted and Authenticated by: Vincenzo Prabhakar 07/14/17
[2017-07-14] MEDS ORDERED: PROPOFOL 20 ML IV ONE (20:27)
[2017-07-14] MEDS ORDERED: MIDAZOLAM 2 MG/2 ML VIAL ONE (20:28)
[2017-07-14] MEDS ORDERED: PROPOFOL 200 MG/20 ML VIAL IV SCH (20:30)
[2017-07-14] MEDS ORDERED: MIDAZOLAM 2 MG/2 ML VIAL IV SCH (20:30)
--- NOTE | 2017-07-14 23:04 | Consultation ---
DATE OF CONSULTATION: 07/14/2017 Gastroenterology Consultation Note HISTORY: The patient is an 87-year-old white female for whom GI consultation is requested tonight regarding severe diarrhea with profound acute on chronic renal failure. The patient lives in the assisted living facility at [place]. She is awake and alert, but her history is devoid of almost any meaningful content. She apparently is quite demented. She was brought to the hospital on 07/12/2017 because of having fallen in recent days. Apparently she has become increasingly weak. She gave a history of diarrhea, but had really no idea of how long the diarrhea was present before she came to the hospital. There is a history of congestive heart failure and mild chronic renal/kidney disease; also of the dementia. On presentation, she had a severe metabolic acidosis with markedly elevated anion gap. I also see on the past record that she has a history of a duodenal ulcer perforation in 2011. The patient was admitted and aggressively rehydrated and given bicarbonate. For the first day she was on Levophed infusion. She has responded to these measures and now her anion gap has normalized and her renal function has shown some modest improvement. Still and all, her BUN today is 108 with creatinine 5.7. Yesterday it was 137 BUN with creatinine 7. It has been observed by the hospitalist and nursing staff that the patient's diarrhea has become profuse, coinciding with her rehydration. She is eating very little. There is no gross blood in the stool, but it did test Hemoccult positive. C. difficile was negative. Enteric pathogen cultures negative thus far, although it was just submitted yesterday. PAST MEDICAL HISTORY: Congestive heart failure and some degree of chronic kidney disease. There is the history of perforated duodenal ulcer in 2011 and there is also a report of rheumatoid arthritis. PAST SURGICAL HISTORY: Duodenal perforation repair and appendectomy. MEDICATIONS AT ADMISSION: Vitamin D. Aspirin 81 mg daily. Aldactone 25 mg twice daily. Lisinopril 10 mg daily. [place] 5/325 mg every 4 hours as needed. Lasix 40 mg twice daily. Coreg 25 mg twice daily. There is no PPI or H2 alpesh listed here. Again, the history of perforated duodenal ulcer is acknowledged. ALLERGIES: NO KNOWN DRUG ALLERGIES. SOCIAL HISTORY: Apparently does not use alcohol or tobacco. and living in assisted living with adult children living, I believe, nearby. FAMILY HISTORY: Noncontributory to the diarrhea. There is apparently no family history of renal failure. EXAMINATION: VITAL SIGNS: Blood pressure this evening 113/46, pulse 75, respiration 20, temperature 97.8 degrees. GENERAL: The patient is awake and alert, but she is not well oriented at all. SKIN: Without stigmata of chronic liver disease. HEENT: Airway is patent. There are several missing teeth. NECK: No JVD. CARDIAC: Regular rhythm and rate without gallop. LUNGS: Clear bilaterally to auscultation with decreased breath sounds. ABDOMEN: Soft and obese. No evident ascites. No mass. Nontender. EXTREMITIES: With some chronic stasis changes distal lower extremities. LABORATORY STUDIES: On admission, the BUN was actually 153 with creatinine 8.3. White count was 16,400 and her bicarbonate in the serum was only 7. Liver chemistries are normal. Earlier today, the sodium was 139, potassium 2.8, chloride 91, bicarbonate 32, BUN 108, creatinine 5.7, glucose 118. ASSESSMENT AND RECOMMENDATION: Based on the history of profuse watery diarrhea and the acute on chronic renal failure, it sounds like she has a secretory diarrhea. I would imagine that when she came into the hospital that her diarrhea may have not been as profuse because she had so much volume loss. Now that she has been receiving intravenous hydration, it seems that her watery diarrhea is increased in volume. A CAT scan has been done which was without IV contrast, but with oral contrast. This showed a solid ovarian tumor at the right ovary, but this was without change from several years ago. No obvious pancreatic lesions seen. No bowel or colon lesions identified either. In order to work up secretory diarrhea, I will order stool sodium and stool potassium concentrations. Stool osmolar gap can then be calculated by subtracting the sum of the sodium and potassium concentration multiplied by 2 from 290. If the gap is less than 50, it would be consistent with secretory diarrhea. Osmolar diarrhea is seen with a gap greater than 125. I am also going to order serum gastrin, calcitonin, vasoactive intestinal peptide, chromogranin A, and urinary 5-HIAA. I will also plan an EGD and colonoscopy with biopsies of the duodenum and biopsies throughout the colon; biopsies throughout the colon to rule out microscopic colitis. I have not mentioned that the patient has a Gram-positive bacillus growing in the blood, yet to be identified. She has been started on Zosyn when she was admitted to the hospital. We will await sensitivities and identification of the organism. Thank you for this consultation. BAYRONM:kimberley Job ID: [id number] Doc ID: [id number] Vincenzo Romero NP
[2017-07-15] MEDS: 0.9 % SODIUM CHLORIDE 1,000 ML IV SCH ×3 (05:31→23:51)
[2017-07-15 06:22] LABS: Basophils # (Auto) 0.1 K/mcL (0.0-0.3); Basophils % (Auto) 0.5 % (0.0-2.0); Eosinophils # (Auto) 0.3 K/mcL (0.0-0.7); Eosinophils % (Auto) 3.2 % (0.0-7.0); Granulocytes % (Auto) 75.7 % (38.0-78.0); Lymphocytes # (Auto) 1.3 K/mcL (1.5-4.8); Mean Cell Volume 89.2 fL (80.0-100.0); Mean Corpuscular HGB Conc 33.9 g/dL (31.0-36.0); Mean Corpuscular Hemoglobin 30.3 pg (26.0-34.0); Monocytes # (Auto) 0.9 K/mcL (0.1-0.9); Monocytes % (Auto) 8.6 % (1.0-12.0); Platelet Count 208 K/mcL (140-440); RBC 3.12 M/mcL (4.00-5.20); Red Cell Distribution Width 14.2 % (11.5-14.5)
[2017-07-15 06:44] LABS: ALT/SGPT 8 U/l (0-40); Albumin 2.7 gm/dL (3.2-5.2); Albumin/Globulin Ratio 1.2 (1.0-2.3); Alkaline Phosphatase 55 U/L (39-117); Bilirubin,Direct < 0.2 mg/dL (0.0-0.3); Blood Urea Nitrogen 87 mg/dl (8-23); Gamma Glutamyl Transpeptidase 9 U/L (5-36); Magnesium 1.3 mg/dL (1.6-2.5); Uric Acid 7.1 mg/dL (2.5-8.0)
[2017-07-15] MEDS ORDERED: MAGNESIUM SULFATE 2 GM/50 ML BAG IV ONE (07:40)
--- NOTE | 2017-07-15 08:14 | Operative Note ---
DATE OF OPERATION: 07/14/2017 GLASS OR MIRROR INSPECTOR AND CAT BREEDER: Vincenzo Knott M.D. ANESTHETIC USED: Propofol 60 mg IV and versed 1 mg IV. PREOPERATIVE DIAGNOSIS: Patient presented with profuse diarrhea and profound renal failure. She is a very poor historian. There is a history of a perforated diverticulum of the duodenum noted on her hospital record. POSTOPERATIVE DIAGNOSIS: Small ulcers and erosions of the second portion of the duodenum. 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 CONSENT: Prior to the procedure, the patient's son provided informed consent. The patient was evaluated and considered medically fit for endoscopy. DESCRIPTION OF PROCEDURE: With the patient in the left lateral decubitus position, a gastroscope was advanced via the mouth to the esophagus under direct vision. The esophagus appears normal throughout its length without ulcer, stricture, mass, or hiatal hernia. Stomach was endoscopically normal, including retroflexed view. The duodenal bulb has a prominent diverticulum, but no active ulcer was seen. There is no stricturing evident. The second portion of the duodenum is notable for several small ulcers with a maximum diameter, maybe 5 mm. There are also several erosions in the duodenum. Biopsies were obtained from the duodenum to work up the diarrhea. Also, biopsies then obtained from the antrum to check for Helicobacter pylori status, especially given her prior history of a perforated duodenal ulcer. COMPLICATIONS: None immediate. RECOMMENDATIONS AND FOLLOWUP: 1. Follow up the results of biopsies obtained today. 2. Proceed to colonoscopy at this time. JCM:nury Job ID: [id number] Doc ID: [id number] Vincenzo Romero NP
--- NOTE | 2017-07-15 08:20 | Operative Note ---
DATE OF OPERATION: 07/14/2017 PHP MYSQL DEVELOPER AND ROLE PLAYER: Vincenzo Knott M.D. ANESTHETIC USED: Propofol 90 mg IV. PREOPERATIVE DIAGNOSIS: The patient admitted with profuse diarrhea and acute renal failure. POSTOPERATIVE DIAGNOSIS: Ukzvjaoe-[id number] pandiverticulosis, but otherwise unremarkable colonoscopy with biopsies pending from the terminal ileum and throughout the colon. CONSENT: Prior to the procedure, the patient's son provided informed consent. The patient was evaluated and considered medically fit for endoscopy. DESCRIPTION OF PROCEDURE: With the patient in the left lateral decubitus position, a rectal exam was performed which was unremarkable. Thereafter, a colonoscope was advanced into the rectum under direct vision. The colonoscopy was performed unprepped. There is thick liquid of a dhrw-ty-mvyvcezi amount with several smaller tiny pieces of stool scattered throughout the colon. Frankly, there is less liquid stool present than I had anticipated based on her history of profuse watery diarrhea. The colonoscopy was performed unprepped. The colonoscope was advanced without much difficulty around the colon, making note of gokvbwyz-zw-ojhpxw thompson diverticulosis, especially at the left side of the colon, but extending at least to a moderate degree all the way around to the right side of the colon. There were no pseudomembranes and no gross evidence of colitis. No polyps or mass lesions were seen. No areas of ischemia were identified. The terminal ileum was examined for a length of 10 to 12 cm and appears normal. I did take biopsies from the terminal ileum x4 and then I took multiple biopsies from the colon beginning at the cecum and continuing down to the sigmoid colon. COMPLICATIONS: None immediate. RECOMMENDATIONS: We will follow up biopsies obtained, and I should note that I also obtained liquid stool through the colonoscope tonight from the rectum and sigmoid colon. This will be sent for stool sodium and stool potassium concentrations to calculate the osmolar gap. JCM:nury Job ID: [id number] Doc ID: [id number] Vincenzo Romero NP
[2017-07-15] MEDS: CALCIUM CARBONATE 500 MG TAB.CHEW CHEWED SCH ×3 (08:35→17:54)
[2017-07-15] MEDS: ASPIRIN 81 MG TAB.CHEW PO SCH (08:36)
[2017-07-15] MEDS: SEVELAMER 800 MG TABLET PO SCH ×4 (08:36→18:36)
[2017-07-15] MEDS: VITAMIN D3 1,000 UNIT TABLET PO SCH (08:36)
[2017-07-15] MEDS: 0.9 % SODIUM CHLORIDE 10 ML SYRINGE IV SCH ×3 (08:37→21:38)
[2017-07-15] MEDS: HEPARIN 5,000 UNIT/ML VIAL SQ SCH ×2 (08:37→21:37)
[2017-07-15] MEDS: ONDANSETRON 4 MG/2 ML VIAL IV PRN (08:37)
[2017-07-15] MEDS: PIPERACILLIN SODIUM/TAZOBACTAM 2.25 GM in DEXTROSE 5% IN WATER 50 ML IV SCH ×2 (09:03→21:38)
--- NOTE | 2017-07-15 09:15 | Internal Med Progress Note ---
Medical - PN: Subj Patient information: Note initiated : 07/15/17 at 9:13 am Service Date, if different from initiated Date: [] Patient: Rabia Seals 87 y/o F admitted on 07/12/17 for Weakness,Possible UTI ,Shaking/Acute Renal Failure. Chief Complaint: [] Interval history: July 12, 2017: History of present illness: Ms. Seals is a 87 year old with a history of dementia, congestive heart failure, mild chronic kidney disease. She reportedly lives at [facility]. We have a history that she fell about 3 days ago as she was walking out of the bathroom. She states she landed on her behind, and really did not hurt herself. Her son apparently asked that she be transported to the ER today for evaluation, as he was told that she was getting weaker. The patient denies that she has been feeling weak. She says she really does not know why she was sent over. ER evaluation showed very severe acute on chronic kidney failure. She also was noted to have significant leukocytosis, and severely elevated anion gap. She is admitted for further evaluation and treatment of her renal failure. Otherwise, the patient is a very poor historian. She believes she has chronic diarrhea, but otherwise cannot recall any recent fevers or chills, headaches or dizziness, new eye or ear symptoms, sore throat or cough. She denies chest pain or palpitations, shortness of breath or wheezing, abdominal pain, nausea or vomiting, constipation, dysuria. However, she also cannot recall the year, and does not believe that she takes daily medications, although [facility] records indicate she takes numerous medications every day. July 13: The patient did fairly well overnight. She did drop her blood pressure a few times initially, requiring the institution of vasopressors, but responded very quickly to these. She has continued to deny significant symptoms, but staff noted that she was too weak for them to get her up this morning, even with the help with physical therapy. Otherwise, she denies fever or chills, headaches or dizziness, chest pain or shortness of breath, GI or symptoms. However, this afternoon, the patient did have 3 bouts of impressive watery diarrhea. July 14: This morning, the patient was feeling quite fatigued. She had a large amount of watery diarrhea last night, so a rectal tube was placed, but then it was removed as she apparently did not have any diarrhea by 8:00 this morning. However after receiving oral contrast for CT scan, she again developed profuse watery diarrhea. Potassium level was quite low this morning, and was replaced IV. Blood cultures are growing a gram-positive nader today. The patient continues to be awake and alert. She is too weak to stand up on her own, and requires significant assistance, but still insists that she is fine. She denies fever chills, headaches or dizziness, chest pain or shortness of breath, abdominal pain, nausea or vomiting. She believes her diarrhea is chronic. She denies dysuria. July 15: Patient seen examined, sitting comfortably in bed, denies any acute issues, admits some weakness. The patient had EGD/ Colonoscopy done yesterday which was negative. She thinks her diarrhea is getting better. Stool studies sent by GI, Appears that she has secretory type of diarrhea. Await Colonic biopsies. Patients creat is trending down, at 5.7 today. The patient Blood culture isolation and sensitivity is still pending, remains on zosyn. Educated to increase fluid intake orally Pertinent ROS: Denies headache, dizziness Denies chest pain, palpitations Denies cough or shortness of breath Denies abdominal pain, nausea or vomiting. - Constitutional Vitals: Vital Signs Temp Pulse Resp BP Pulse Ox 97.7 F 86 16 97/61 96 07/15/17 04:01 07/15/17 07:32 07/15/17 07:32 07/15/17 04:01 07/15/17 07:32 Period Temp Pulse Resp BP Sys/Marino Pulse Ox Last 24 Hr 97.7 F-98.6 F 75-88 16-20 58-126/40-77 90-96 Intake and Output 07/14/17 07/15/17 07/15/17 21:59 05:59 13:59 Intake Total 1520 / 1520 1000 / 1000 50 / 50 Output Total 650 / 650 Balance 1520 / 1520 350 / 350 50 / 50 Weight 164 lb Intake & Output: Intake & Output 07/14/17 07/15/17 07/15/17 21:59 05:59 13:59 Intake Total 1520 / 1520 1000 / 1000 50 / 50 Output Total 650 / 650 Balance 1520 / 1520 350 / 350 50 / 50 Weight 164 lb Intake: IV 1520 / 1520 1000 / 1000 50 / 50 Sodium Chloride 0.9% 1, 1000 / 1000 950 / 950 000 ml @ 125 mls/hr IV . Q8H [facility] Rx#:[id number] Zosyn 2.25 gm In Dextrose 50 / 50 5% in Water 50 ml @ 100 mls/hr IV Q12H [facility] Rx#: [id number] Output: Urine Catheter Amount 650 / 650 Exam: Constitutional; Afebrile, cooperative, alert, not in distress. Eyes- No icterus, , No periorbital swelling Ears- Ext ear normal, hearing normal to conversation. Neck- Midline trachea, supple Respiratory system: Air Entry equal on both sides, No crackles or wheezing, no rhonchi. CVS- Rate rhythm regular, S1,S2 heard, no gallop, no rub. Abdomen- Soft nontender abdomen, no organomegaly, no tenderness, no guarding or rigidity, CARDIOVASCULAR DISEASE SPECIALIST- AOOx2, moving all extremities, no gross focal deficit noted. Medical - PN: Obj Da - Labs CBC & Chem 7: 07/15/17 03:40 07/15/17 03:40 Labs: Abnormal Lab Results 07/15/17 07/15/17 07/14/17 03:40 03:40 03:43 WBC 11.9 H RBC 3.12 L 3.46 L Hgb 9.4 L 10.4 L Hct 27.8 L 30.5 L Gran % 82.1 H Lymph % (Auto) 12.0 L 9.9 L Gran # 9.8 H Lymph # (Auto) 1.3 L 1.2 L ABG Methemoglobin VBG pH VBG pCO2 VBG pO2 VBG HCO3 VBG Total CO2 VBG O2 Saturation VBG Base Excess Carboxyhemoglobin Total Hemoglobin Sodium Potassium Chloride 95 L Carbon Dioxide 36 H Anion Gap BUN 87 H Creatinine 5.2 H* Glucose Uric Acid Calcium 6.7 L Phosphorus Magnesium 1.3 L Lactate Dehydrogenase 266 H Total Creatine Kinase Troponin T NT-Pro-B Natriuret Pep Total Protein 5.0 L Albumin 2.7 L Triglycerides 07/14/17 07/13/17 07/13/17 03:43 03:40 03:40 WBC RBC 3.26 L Hgb 9.8 L Hct 28.9 L Gran % 78.1 H Lymph % (Auto) 11.2 L Gran # Lymph # (Auto) 1.0 L ABG Methemoglobin VBG pH VBG pCO2 VBG pO2 VBG HCO3 VBG Total CO2 VBG O2 Saturation VBG Base Excess Carboxyhemoglobin Total Hemoglobin Sodium Potassium 2.8 L* Chloride 91 L Carbon Dioxide 32 H 12 L Anion Gap 22.0 H BUN 108 H* 137 H* Creatinine 5.7 H* 7.0 H* Glucose 118 H 139 H Uric Acid 8.4 H Calcium 7.2 L 7.3 L Phosphorus 5.7 H Magnesium 1.5 L Lactate Dehydrogenase Total Creatine Kinase Troponin T NT-Pro-B Natriuret Pep Total Protein 5.3 L 5.3 L Albumin 2.7 L 2.9 L Triglycerides 183 H 07/12/17 07/12/17 07/12/17 23:15 23:15 23:15 WBC RBC Hgb Hct Gran % Lymph % (Auto) Gran # Lymph # (Auto) ABG Methemoglobin 0.3 L VBG pH 7.23 L VBG pCO2 21.2 L VBG pO2 73 H VBG HCO3 8.7 L* VBG Total CO2 9.4 L* VBG O2 Saturation 86.4 H VBG Base Excess -17.0 L Carboxyhemoglobin 4.7 H Total Hemoglobin 9.8 L Sodium 132 L Potassium Chloride Carbon Dioxide 8 L* Anion Gap 26.0 H BUN 140 H* Creatinine 7.4 H* Glucose 114 H Uric Acid Calcium 7.5 L Phosphorus Magnesium Lactate Dehydrogenase Total Creatine Kinase 189 H Troponin T NT-Pro-B Natriuret Pep Total Protein Albumin Triglycerides 07/12/17 07/12/17 18:12 18:12 WBC RBC Hgb Hct Gran % Lymph % (Auto) Gran # Lymph # (Auto) ABG Methemoglobin VBG pH VBG pCO2 VBG pO2 VBG HCO3 VBG Total CO2 VBG O2 Saturation VBG Base Excess Carboxyhemoglobin Total Hemoglobin Sodium Potassium Chloride Carbon Dioxide Anion Gap BUN Creatinine Glucose Uric Acid Calcium Phosphorus Magnesium Lactate Dehydrogenase Total Creatine Kinase Troponin T 0.04 H* NT-Pro-B Natriuret Pep 1797.0 H Total Protein Albumin Triglycerides Meds: Medications Acetaminophen (Tylenol) 650 mg PO Q6HP PRN PRN Reason: PAIN/FEVER > 101 Last Admin: 07/14/17 09:38 Dose: 650 mg Hydrocodone Bitart/Acetaminophen ([place] 5/325mg) 1 tab PO Q4-6HP PRN PRN Reason: Pain Aspirin (Aspirin) 81 mg PO DAILY [facility] Last Admin: 07/15/17 08:36 Dose: 81 mg Calcium Carbonate/Glycine (Tums) 1,000 mg CHEWED TIDCC [facility] Last Admin: 07/15/17 08:35 Dose: 1,000 mg Diphenoxylate HCl/Atropine (Lomotil) 1 tab PO Q4HP PRN PRN Reason: Diarrhea Last Admin: 07/14/17 17:33 Dose: 1 tab Docusate Sodium (Colace) 100 mg PO BID PRN PRN Reason: Constipation Heparin Sodium (Porcine) (Heparin) 5,000 unit SQ Q12 [facility] Last Admin: 07/15/17 08:37 Dose: 5,000 unit Sodium Chloride (Sodium Chloride 0.9%) 250 mls @ 20 mls/hr IV .[id number] [facility] Last Admin: 07/14/17 22:41 Dose: Not Given Piperacillin Sod/Tazobactam (Sod 2.25 gm/ Dextrose) 50 mls @ 100 mls/hr IV Q12H [facility] Last Admin: 07/15/17 09:03 Dose: 100 mls/hr Norepinephrine Bitartrate 8 mg (/ Sodium Chloride) 250 mls @ 18.75 mls/hr IV Q14H [facility]; 10 MCG/MIN PRN Reason: Protocol Last Admin: 07/14/17 20:18 Dose: Not Given Sodium Chloride (Sodium Chloride 0.9%) 1,000 mls @ 125 mls/hr IV .Q8H [facility] Last Admin: 07/15/17 05:31 Dose: 125 mls/hr Magnesium Hydroxide (Milk Of Magnesia) 30 ml PO DAILYP PRN PRN Reason: Constipation Naloxone HCl (Narcan) 0.1 mg IV Q2MIN PRN PRN Reason: Opiate Reversal Ondansetron HCl (Zofran) 4 mg IV Q4HP PRN PRN Reason: Nausea And Vomiting Last Admin: 07/15/17 08:37 Dose: 4 mg Sevelamer Carbonate (Renvela) 800 mg PO TIDCC [facility] Last Admin: 07/15/17 08:36 Dose: 800 mg Sodium Chloride (Saline Flush) 10 ml IV Q8 [facility] Last Admin: 07/15/17 08:37 Dose: 10 ml Vitamin D (Vitamin D3) 1,000 unit PO QDAY [facility] Last Admin: 07/15/17 08:36 Dose: 1,000 unit - ABG Interpretation ABG results: 07/12/17 23:15 ABG Methemoglobin 0.3 L VBG pH 7.23 L VBG pCO2 21.2 L VBG pO2 73 H VBG HCO3 8.7 L* VBG Total CO2 9.4 L* VBG O2 Saturation 86.4 H VBG Base Excess -17.0 L Medical - PN: A/P - Time Spent With Patient Total time spent is greater than 50% in coordination of care (as documented) at patient's floor/unit and/or counseling patient: - Narrative A/P Narrative: #1. Renal. Acute on chronic renal failure. There is presumably at least some degree of dehydration, likely due to current medications, and probable poor p.o. intake and chr diarrhea. Renal function improving Creat 5.2, K stable, Bicarb still high, off bicarb drip now. -Renal function is improving, acidosis appears resolved.. IV fluids changed to normal saline. Nephrology following. Consult appreciated. -Monitor labs, including calcium and phosphorus. Continue with hydration. 2. Recent fall. No injuries reported. 3. Hematologic. Leukocytosis resolved. Blood cultures appear to be growing a gram-positive anaerobe. Awaiting identification. Continue IV Zosyn. -Chronic anemia, likely due to chronic renal disease. 4. Cardiac. Reported history of coronary artery disease and CHF. -All heart medicines are on hold regarding hypotension. We will resume Coreg when it appears that can be tolerated. Otherwise diuretics and KASHMIR inhibitor are on hold. she is off levophed. -Chest x-ray suggestive of mild early pulmonary vascular congestion. Decreased IV fluid rate and follow. 5. CODE STATUS: Her chart indicates she has a DNR CODE STATUS. Nursing staff did contact her son/POA, and he further clarified that they would like full code except no intubation. 6. DVT prophylaxis: Sq heparin. 7. Neurologic. Patient has history of, as well as symptoms of, significant dementia. 8. Rheumatologic. History of rheumatoid arthritis, without current complaints of pain. 9. History of vitamin D deficiency. #10. GI. Chr Diarrhea Secretory diarrhea, appreciate GI consult Presently on lomotil, Monitor await colonic biopsies . Medical - PN: Qual - Stroke Symptom Onset Unknown: No - VTE Deep Vein Thrombosis/Pulmonary Embolism Present on Admission: No
[2017-07-15] MEDS ORDERED: NOREPINEPHRINE BITARTRATE 8 MG in 0.9 % SODIUM CHLORIDE 242 ML IV PRN (09:45)
[2017-07-15] MEDS: NOREPINEPHRINE BITARTRATE 8 MG in 0.9 % SODIUM CHLORIDE 242 ML IV SCH (09:59)
[2017-07-15] MEDS: 0.9 % SODIUM CHLORIDE 250 ML IV SCH (13:05)
[2017-07-15] MEDS: DIPHENOXYLATE HCL/ATROPINE 1 TABLET PO PRN (15:55)
--- NOTE | 2017-07-15 18:23 | Internal Med Progress Note ---
Medical - PN: Subj Patient information: Note initiated : 07/15/17 at 6:20 pm Service Date, if different from initiated Date: [] Patient: Rabia Seals 87 y/o F admitted on 07/12/17 for Weakness,Possible UTI ,Shaking/Acute Renal Failure. Chief Complaint: [diarrhea with associated acute renal failure] Pt tolerated EGD and colon well last p.m. Biopsies pending Interestingly, nursing staff reports that today the pt's BM are not large volume and she has had only two recorded. Nursing observes that BM's are occurring after eating. This is more consistent with an osmotic diarrhea than a secretory diarrhea. - Constitutional Vitals: Vital Signs Temp Pulse Resp BP Pulse Ox 97.7 F 85 18 123/55 98 07/15/17 16:02 07/15/17 12:35 07/15/17 16:02 07/15/17 16:02 07/15/17 16:02 Period Temp Pulse Resp BP Sys/Marino Pulse Ox Last 24 Hr 97.7 F-99.7 F 75-88 16-20 58-123/40-77 88-98 Intake and Output 07/15/17 07/15/17 07/15/17 05:59 13:59 21:59 Intake Total 1000 / 1000 802 / 802 718 / 718 Output Total 650 / 650 500 / 500 150 / 150 Balance 350 / 350 302 / 302 568 / 568 Intake & Output: Intake & Output 07/15/17 07/15/17 07/15/17 05:59 13:59 21:59 Intake Total 1000 / 1000 802 / 802 718 / 718 Output Total 650 / 650 500 / 500 150 / 150 Balance 350 / 350 302 / 302 568 / 568 Intake: IV 1000 / 1000 542 / 542 558 / 558 Sodium Chloride 0.9% 1, 950 / 950 442 / 442 558 / 558 000 ml @ 125 mls/hr IV . Q8H [facility] Rx#:[id number] Levophed 8 mg In Sodium 0 / 0 Chloride 0.9% 242 ml @ 10 MCG/MIN 18.75 mls/hr IV Q14H [facility] Rx#:[id number] Zosyn 2.25 gm In Dextrose 50 / 50 50 / 50 5% in Water 50 ml @ 100 mls/hr IV Q12H [facility] Rx#: [id number] Oral 260 / 260 160 / 160 Output: Urine Catheter Amount 650 / 650 500 / 500 150 / 150 Other: Meal Lunch Percent of Meal Consumed 25% Feeding Ability Assist with Tray Set Up # of times incontinent of 1 Bowels General appearance: cooperative, no acute distress - GI/Abdominal GI/Abdominal exam: Present: soft. Absent: guarding Medical - PN: Obj Da - Labs CBC & Chem 7: 07/15/17 03:40 07/15/17 03:40 Labs: Abnormal Lab Results 07/15/17 07/15/17 07/14/17 03:40 03:40 03:43 WBC 11.9 H RBC 3.12 L 3.46 L Hgb 9.4 L 10.4 L Hct 27.8 L 30.5 L Gran % 82.1 H Lymph % (Auto) 12.0 L 9.9 L Gran # 9.8 H Lymph # (Auto) 1.3 L 1.2 L ABG Methemoglobin VBG pH VBG pCO2 VBG pO2 VBG HCO3 VBG Total CO2 VBG O2 Saturation VBG Base Excess Carboxyhemoglobin Total Hemoglobin Sodium Potassium Chloride 95 L Carbon Dioxide 36 H Anion Gap BUN 87 H Creatinine 5.2 H* Glucose Uric Acid Calcium 6.7 L Phosphorus Magnesium 1.3 L Lactate Dehydrogenase 266 H Total Creatine Kinase Troponin T NT-Pro-B Natriuret Pep Total Protein 5.0 L Albumin 2.7 L Triglycerides 07/14/17 07/13/17 07/13/17 03:43 03:40 03:40 WBC RBC 3.26 L Hgb 9.8 L Hct 28.9 L Gran % 78.1 H Lymph % (Auto) 11.2 L Gran # Lymph # (Auto) 1.0 L ABG Methemoglobin VBG pH VBG pCO2 VBG pO2 VBG HCO3 VBG Total CO2 VBG O2 Saturation VBG Base Excess Carboxyhemoglobin Total Hemoglobin Sodium Potassium 2.8 L* Chloride 91 L Carbon Dioxide 32 H 12 L Anion Gap 22.0 H BUN 108 H* 137 H* Creatinine 5.7 H* 7.0 H* Glucose 118 H 139 H Uric Acid 8.4 H Calcium 7.2 L 7.3 L Phosphorus 5.7 H Magnesium 1.5 L Lactate Dehydrogenase Total Creatine Kinase Troponin T NT-Pro-B Natriuret Pep Total Protein 5.3 L 5.3 L Albumin 2.7 L 2.9 L Triglycerides 183 H 07/12/17 07/12/17 07/12/17 23:15 23:15 23:15 WBC RBC Hgb Hct Gran % Lymph % (Auto) Gran # Lymph # (Auto) ABG Methemoglobin 0.3 L VBG pH 7.23 L VBG pCO2 21.2 L VBG pO2 73 H VBG HCO3 8.7 L* VBG Total CO2 9.4 L* VBG O2 Saturation 86.4 H VBG Base Excess -17.0 L Carboxyhemoglobin 4.7 H Total Hemoglobin 9.8 L Sodium 132 L Potassium Chloride Carbon Dioxide 8 L* Anion Gap 26.0 H BUN 140 H* Creatinine 7.4 H* Glucose 114 H Uric Acid Calcium 7.5 L Phosphorus Magnesium Lactate Dehydrogenase Total Creatine Kinase 189 H Troponin T NT-Pro-B Natriuret Pep Total Protein Albumin Triglycerides 07/12/17 07/12/17 18:12 18:12 WBC RBC Hgb Hct Gran % Lymph % (Auto) Gran # Lymph # (Auto) ABG Methemoglobin VBG pH VBG pCO2 VBG pO2 VBG HCO3 VBG Total CO2 VBG O2 Saturation VBG Base Excess Carboxyhemoglobin Total Hemoglobin Sodium Potassium Chloride Carbon Dioxide Anion Gap BUN Creatinine Glucose Uric Acid Calcium Phosphorus Magnesium Lactate Dehydrogenase Total Creatine Kinase Troponin T 0.04 H* NT-Pro-B Natriuret Pep 1797.0 H Total Protein Albumin Triglycerides Meds: Medications Acetaminophen (Tylenol) 650 mg PO Q6HP PRN PRN Reason: PAIN/FEVER > 101 Last Admin: 07/14/17 09:38 Dose: 650 mg Hydrocodone Bitart/Acetaminophen ([place] 5/325mg) 1 tab PO Q4-6HP PRN PRN Reason: Pain Aspirin (Aspirin) 81 mg PO DAILY [facility] Last Admin: 07/15/17 08:36 Dose: 81 mg Calcium Carbonate/Glycine (Tums) 1,000 mg CHEWED TIDCC [facility] Last Admin: 07/15/17 17:54 Dose: 1,000 mg Diphenoxylate HCl/Atropine (Lomotil) 1 tab PO Q4HP PRN PRN Reason: Diarrhea Last Admin: 07/15/17 15:55 Dose: 1 tab Docusate Sodium (Colace) 100 mg PO BID PRN PRN Reason: Constipation Heparin Sodium (Porcine) (Heparin) 5,000 unit SQ Q12 [facility] Last Admin: 07/15/17 08:37 Dose: 5,000 unit Sodium Chloride (Sodium Chloride 0.9%) 250 mls @ 20 mls/hr IV .[id number] [facility] Last Admin: 07/15/17 13:05 Dose: Not Given Piperacillin Sod/Tazobactam (Sod 2.25 gm/ Dextrose) 50 mls @ 100 mls/hr IV Q12H [facility] Last Infusion: 07/15/17 09:58 Dose: Infused Sodium Chloride (Sodium Chloride 0.9%) 1,000 mls @ 125 mls/hr IV .Q8H [facility] Last Admin: 07/15/17 15:18 Dose: 125 mls/hr Norepinephrine Bitartrate 8 mg (/ Sodium Chloride) 250 mls @ 18.75 mls/hr IV Q24HP PRN; Protocol; 10 MCG/MIN PRN Reason: MAP <60 Magnesium Hydroxide (Milk Of Magnesia) 30 ml PO DAILYP PRN PRN Reason: Constipation Naloxone HCl (Narcan) 0.1 mg IV Q2MIN PRN PRN Reason: Opiate Reversal Ondansetron HCl (Zofran) 4 mg IV Q4HP PRN PRN Reason: Nausea And Vomiting Last Admin: 07/15/17 08:37 Dose: 4 mg Sevelamer Carbonate (Renvela) 800 mg PO TIDCC [facility] Last Admin: 07/15/17 17:54 Dose: 800 mg Sodium Chloride (Saline Flush) 10 ml IV Q8 [facility] Last Admin: 07/15/17 15:55 Dose: 10 ml Vitamin D (Vitamin D3) 1,000 unit PO QDAY [facility] Last Admin: 07/15/17 08:36 Dose: 1,000 unit - Impressions Her stool osmolar gap is about 97 which is indeterminate. - ABG Interpretation ABG results: 07/12/17 23:15 ABG Methemoglobin 0.3 L VBG pH 7.23 L VBG pCO2 21.2 L VBG pO2 73 H VBG HCO3 8.7 L* VBG Total CO2 9.4 L* VBG O2 Saturation 86.4 H VBG Base Excess -17.0 L Medical - PN: A/P - Time Spent With Patient Total time spent is greater than 50% in coordination of care (as documented) at patient's floor/unit and/or counseling patient: less than 15 minutes (1) Acute renal failure Status: Acute Current Visit: Yes Medical - PN: Qual - Stroke Symptom Onset Unknown: No - VTE Deep Vein Thrombosis/Pulmonary Embolism Present on Admission: No
[2017-07-16 05:56] LABS: Basophils # (Auto) 0.1 K/mcL (0.0-0.3); Basophils % (Auto) 0.6 % (0.0-2.0); Eosinophils # (Auto) 0.4 K/mcL (0.0-0.7); Eosinophils % (Auto) 4.1 % (0.0-7.0); Granulocytes % (Auto) 74.1 % (38.0-78.0); Lymphocytes # (Auto) 1.3 K/mcL (1.5-4.8); Lymphocytes % (Auto) 13.4 % (15.5-49.0); Mean Cell Volume 89.1 fL (80.0-100.0); Mean Corpuscular HGB Conc 33.5 g/dL (31.0-36.0); Mean Corpuscular Hemoglobin 29.9 pg (26.0-34.0); Monocytes # (Auto) 0.8 K/mcL (0.1-0.9); Monocytes % (Auto) 7.8 % (1.0-12.0); Platelet Count 216 K/mcL (140-440); RBC 3.05 M/mcL (4.00-5.20); Red Cell Distribution Width 14.2 % (11.5-14.5)
[2017-07-16 06:43] LABS: ALT/SGPT 9 U/l (0-40); Albumin 2.7 gm/dL (3.2-5.2); Albumin/Globulin Ratio 1.1 (1.0-2.3); Alkaline Phosphatase 56 U/L (39-117); Bilirubin,Direct < 0.2 mg/dL (0.0-0.3); Blood Urea Nitrogen 67 mg/dl (8-23); Gamma Glutamyl Transpeptidase 11 U/L (5-36); Magnesium 1.9 mg/dL (1.6-2.5); Uric Acid 6.2 mg/dL (2.5-8.0)
[2017-07-16] MEDS: 0.9 % SODIUM CHLORIDE 10 ML SYRINGE IV SCH ×4 (07:00→20:43)
[2017-07-16] MEDS: 0.9 % SODIUM CHLORIDE 1,000 ML IV SCH (07:53)
[2017-07-16] MEDS: SEVELAMER 800 MG TABLET PO SCH (08:29)
[2017-07-16] MEDS: CALCIUM CARBONATE 500 MG TAB.CHEW CHEWED SCH ×3 (08:30→17:38)
[2017-07-16] MEDS: DIPHENOXYLATE HCL/ATROPINE 1 TABLET PO PRN ×2 (08:57→14:46)
[2017-07-16] MEDS: HEPARIN 5,000 UNIT/ML VIAL SQ SCH ×2 (09:40→20:43)
[2017-07-16] MEDS: ASPIRIN 81 MG TAB.CHEW PO SCH (09:40)
[2017-07-16] MEDS: PIPERACILLIN SODIUM/TAZOBACTAM 2.25 GM in DEXTROSE 5% IN WATER 50 ML IV SCH ×2 (09:40→20:43)
[2017-07-16] MEDS: VITAMIN D3 1,000 UNIT TABLET PO SCH (09:43)
--- NOTE | 2017-07-16 09:56 | Nephrology Progress Note ---
Subjective Patient information: Note initiated : 07/16/17 at 9:53 am Service Date, if different from initiated Date: [] Patient: Rabia Seals 87 y/o F admitted on 07/12/17 for Weakness,Possible UTI ,Shaking/Acute Renal Failure. Chief Complaint: [] Principal diagnosis: Acute renal failure Interval history: Rabia still has diarrhea and is incontinent with that. She was seen by GI and work up for diarrhea is being done with plans for colonoscopy. This would explain severe volume depletion in the setting of diuretic use. Objective - Vital Signs Vital signs: Vital Signs Temp Pulse Pulse Resp BP BP Pulse Ox 07/16/17 08:10 97.7 F 18 132/63 96 07/16/17 04:36 99.9 F H 20 124/51 94 07/15/17 23:58 99.1 F H 24 H 115/45 96 07/15/17 19:52 98.7 F 20 134/60 98 07/15/17 18:53 69 98 07/15/17 16:02 97.7 F 18 123/55 98 07/15/17 12:35 99.7 F H 85 18 106/58 88 L Intake and Output 07/15/17 07/16/17 07/16/17 21:59 05:59 13:59 Intake Total 718 / 718 1400 / 1400 1000 / 1000 Output Total 150 / 150 700 / 700 Balance 568 / 568 700 / 700 1000 / 1000 Intake: IV 558 / 558 1050 / 1050 1000 / 1000 Sodium Chloride 0.9% 1, 558 / 558 1000 / 1000 1000 / 1000 000 ml @ 125 mls/hr IV . Q8H [facility] Rx#:[id number] Zosyn 2.25 gm In Dextrose 50 / 50 5% in Water 50 ml @ 100 mls/hr IV Q12H [facility] Rx#: [id number] Oral 160 / 160 350 / 350 Output: Urine Catheter Amount 150 / 150 700 / 700 Other: # Bowel Movements 0 # of times incontinent of 1 Bowels Weight 195 lb 8 oz Intake & Output: Intake & Output 07/15/17 07/16/17 07/16/17 21:59 05:59 13:59 Intake Total 718 / 718 1400 / 1400 1000 / 1000 Output Total 150 / 150 700 / 700 Balance 568 / 568 700 / 700 1000 / 1000 Weight 195 lb 8 oz Intake: IV 558 / 558 1050 / 1050 1000 / 1000 Sodium Chloride 0.9% 1, 558 / 558 1000 / 1000 1000 / 1000 000 ml @ 125 mls/hr IV . Q8H [facility] Rx#:[id number] Zosyn 2.25 gm In Dextrose 50 / 50 5% in Water 50 ml @ 100 mls/hr IV Q12H [facility] Rx#: [id number] Oral 160 / 160 350 / 350 Output: Urine Catheter Amount 150 / 150 700 / 700 Other: # Bowel Movements 0 # of times incontinent of 1 Bowels - Lab 07/16/17 03:30 07/16/17 03:30 Most recent lab results Calcium 7.2 mg/dl (8.6-10.4) L 07/16/17 03:30 Phosphorus 4.3 mg/dL (2.7-4.5) 07/16/17 03:30 Magnesium 1.9 mg/dL (1.6-2.5) 07/16/17 03:30 Assessment and Plan (1) Acute renal failure HOANG / ARF: non-oliguric, renal function improving, titrate IV NS rate to keep intake and out put even, accounting for insensible losses. Electrolyte repletion as needed. Hyperkalemia, acidosis and hyponatremia resolved. Baseline SCr was 1.3-1.5 in late 2015. There could be some progression in her mild CKD and an element of ischemic ATN due to hypotension. If diarrhea is minimal and oral fluid intake is adequate IVF can stopped. Follow I/O, BMP Status: Acute Comment: Since she apparently does not have a secretory diarrhea I suspect the gastrin, VIP,chromogranin, etc will not be enlightening. Will follow the colon bx's with interest. ? microscopic colitis. Renal failure responding to current supportive measures. Qualifiers: Acute renal failure type: unspecified Qualified Code(s): N17.9 - Acute kidney failure, unspecified
[2017-07-16] MEDS ORDERED: 0.9 % SODIUM CHLORIDE 1,000 ML IV SCH (10:15)
--- NOTE | 2017-07-16 11:26 | Internal Med Progress Note ---
Medical - PN: Subj Patient information: Note initiated : 07/16/17 at 11:26 am Patient: Rabia Seals 87 y/o F admitted on 07/12/17 for Weakness,Possible UTI ,Shaking/Acute Renal Failure. Interval history: July 12, 2017: History of present illness: Ms. Seals is a 87 year old with a history of dementia, congestive heart failure, mild chronic kidney disease. She reportedly lives at [facility]. We have a history that she fell about 3 days ago as she was walking out of the bathroom. She states she landed on her behind, and really did not hurt herself. Her son apparently asked that she be transported to the ER today for evaluation, as he was told that she was getting weaker. The patient denies that she has been feeling weak. She says she really does not know why she was sent over. ER evaluation showed very severe acute on chronic kidney failure. She also was noted to have significant leukocytosis, and severely elevated anion gap. She is admitted for further evaluation and treatment of her renal failure. Otherwise, the patient is a very poor historian. She believes she has chronic diarrhea, but otherwise cannot recall any recent fevers or chills, headaches or dizziness, new eye or ear symptoms, sore throat or cough. She denies chest pain or palpitations, shortness of breath or wheezing, abdominal pain, nausea or vomiting, constipation, dysuria. However, she also cannot recall the year, and does not believe that she takes daily medications, although [facility] records indicate she takes numerous medications every day. July 13: The patient did fairly well overnight. She did drop her blood pressure a few times initially, requiring the institution of vasopressors, but responded very quickly to these. She has continued to deny significant symptoms, but staff noted that she was too weak for them to get her up this morning, even with the help with physical therapy. Otherwise, she denies fever or chills, headaches or dizziness, chest pain or shortness of breath, GI or symptoms. However, this afternoon, the patient did have 3 bouts of impressive watery diarrhea. July 14: This morning, the patient was feeling quite fatigued. She had a large amount of watery diarrhea last night, so a rectal tube was placed, but then it was removed as she apparently did not have any diarrhea by 8:00 this morning. However after receiving oral contrast for CT scan, she again developed profuse watery diarrhea. Potassium level was quite low this morning, and was replaced IV. Blood cultures are growing a gram-positive nader today. The patient continues to be awake and alert. She is too weak to stand up on her own, and requires significant assistance, but still insists that she is fine. She denies fever chills, headaches or dizziness, chest pain or shortness of breath, abdominal pain, nausea or vomiting. She believes her diarrhea is chronic. She denies dysuria. July 15: Patient seen examined, sitting comfortably in bed, denies any acute issues, admits some weakness. The patient had EGD/ Colonoscopy done yesterday which was negative. She thinks her diarrhea is getting better. Stool studies sent by GI, Appears that she has secretory type of diarrhea. Await Colonic biopsies. Patients creat is trending down, at 5.7 today. The patient Blood culture isolation and sensitivity is still pending, remains on zosyn. Educated to increase fluid intake orally. July 16: Today, the patient continues to say that she feels fine. However, nursing staff notes that she continues to have intermittent watery diarrhea, with fecal incontinence. The patient cannot really recall these episodes. She denies fever chills, chest pain or shortness of breath, GI or complaints, but her history is clearly unreliable. GI has suggested that perhaps we try the patient on a gluten-free, dairy free diet, as she did have some Hagan shortening on her bowel biopsies. - Constitutional Vitals: Vital Signs Temp Pulse Resp BP Pulse Ox 97.7 F 80 17 132/63 95 07/16/17 08:10 07/16/17 10:20 07/16/17 10:20 07/16/17 08:10 07/16/17 10:20 Period Temp Pulse Resp BP Sys/Marino Pulse Ox Last 24 Hr 97.7 F-99.9 F 69-85 17-24 106-134/45-63 88-98 Intake and Output 07/15/17 07/16/17 07/16/17 21:59 05:59 13:59 Intake Total 718 / 718 1400 / 1400 1000 / 1000 Output Total 150 / 150 700 / 700 400 / 400 Balance 568 / 568 700 / 700 600 / 600 Weight 195 lb 8 oz Intake & Output: Intake & Output 07/15/17 07/16/17 07/16/17 21:59 05:59 13:59 Intake Total 718 / 718 1400 / 1400 1000 / 1000 Output Total 150 / 150 700 / 700 400 / 400 Balance 568 / 568 700 / 700 600 / 600 Weight 195 lb 8 oz Intake: IV 558 / 558 1050 / 1050 1000 / 1000 Sodium Chloride 0.9% 1, 558 / 558 1000 / 1000 1000 / 1000 000 ml @ 125 mls/hr IV . Q8H [facility] Rx#:[id number] Zosyn 2.25 gm In Dextrose 50 / 50 5% in Water 50 ml @ 100 mls/hr IV Q12H [facility] Rx#: [id number] Oral 160 / 160 350 / 350 Output: Urine Catheter Amount 150 / 150 700 / 700 400 / 400 Other: # Bowel Movements 0 # of times incontinent of 1 Bowels She is awake and alert, in no acute distress. T-max is 99.2, heart rate 85, O2 saturation 97% on 2 L, respiratory rate 20, blood pressure 154/81 Neck is supple without obvious lymphadenopathy or JVD. Cardiac exam shows regular rate and rhythm. lungs are clear to auscultation. Abdomen is soft and nontender. Extremities show minimal edema Medical - PN: Obj Da - Labs CBC & Chem 7: 07/16/17 03:30 07/16/17 03:30 Labs: Abnormal Lab Results 07/16/17 07/16/17 07/15/17 03:30 03:30 03:40 WBC RBC 3.05 L 3.12 L Hgb 9.1 L 9.4 L Hct 27.1 L 27.8 L Gran % Lymph % (Auto) 13.4 L 12.0 L Gran # Lymph # (Auto) 1.3 L 1.3 L Potassium Chloride Carbon Dioxide BUN 67 H Creatinine 4.4 H Glucose Calcium 7.2 L Magnesium Lactate Dehydrogenase 325 H Total Protein 5.1 L Albumin 2.7 L 07/15/17 07/14/17 07/14/17 03:40 03:43 03:43 WBC 11.9 H RBC 3.46 L Hgb 10.4 L Hct 30.5 L Gran % 82.1 H Lymph % (Auto) 9.9 L Gran # 9.8 H Lymph # (Auto) 1.2 L Potassium 2.8 L* Chloride 95 L 91 L Carbon Dioxide 36 H 32 H BUN 87 H 108 H* Creatinine 5.2 H* 5.7 H* Glucose 118 H Calcium 6.7 L 7.2 L Magnesium 1.3 L 1.5 L Lactate Dehydrogenase 266 H Total Protein 5.0 L 5.3 L Albumin 2.7 L 2.7 L July 14: Stool for Hemoccult was positive today. C. difficile screen is negative. Blood culture is growing Propionibacterium granulosum, thought to be a contaminant. Abdominal CT with oral contrast, but without IV contrast: Shows cholelithiasis, small amount of pelvic ascites, stable 5 cm right ovarian tumor and 5 cm simple cyst of the left ovary, sigmoid diverticulosis, small bilateral pleural effusions, moderate L2 compression fracture. July 13: ABG: PH 7.49, PCO2 25, PO2 85, bicarb 19, O2 saturation 99% Renal ultrasound: Shows normal-appearing kidneys and bladder. Gallstones are noted within the gallbladder without evidence of cholecystitis. Chest x-ray: Shows mild cardiomegaly. Upper lobe pulmonary vessels slightly distended, consistent with possible mild CHF. July 12: Troponin is borderline at 0.04 ProBNP is elevated at 1797 CBC: White blood cell count 16,000, him hemoglobin 11.5, hematocrit 33, platelets 246,000. Granulocyte count elevated at 14,000. Lactic acid normal at 1.0 Anion gap is elevated at 24. Ionized calcium is low at 1.01 Chest x-ray: Stable cardiomegaly. No infiltrates. Meds: Medications Acetaminophen (Tylenol) 650 mg PO Q6HP PRN PRN Reason: PAIN/FEVER > 101 Last Admin: 07/14/17 09:38 Dose: 650 mg Hydrocodone Bitart/Acetaminophen ([place] 5/325mg) 1 tab PO Q4-6HP PRN PRN Reason: Pain Aspirin (Aspirin) 81 mg PO DAILY [facility] Last Admin: 07/16/17 09:40 Dose: 81 mg Calcium Carbonate/Glycine (Tums) 1,000 mg CHEWED TIDCC [facility] Last Admin: 07/16/17 08:30 Dose: 1,000 mg Diphenoxylate HCl/Atropine (Lomotil) 1 tab PO Q4HP PRN PRN Reason: Diarrhea Last Admin: 07/16/17 08:57 Dose: 1 tab Docusate Sodium (Colace) 100 mg PO BID PRN PRN Reason: Constipation Heparin Sodium (Porcine) (Heparin) 5,000 unit SQ Q12 [facility] Last Admin: 07/16/17 09:40 Dose: 5,000 unit Piperacillin Sod/Tazobactam (Sod 2.25 gm/ Dextrose) 50 mls @ 100 mls/hr IV Q12H [facility] Last Admin: 07/16/17 09:40 Dose: 100 mls/hr Norepinephrine Bitartrate 8 mg (/ Sodium Chloride) 250 mls @ 18.75 mls/hr IV Q24HP PRN; Protocol; 10 MCG/MIN PRN Reason: MAP <60 Sodium Chloride (Sodium Chloride 0.9%) 1,000 mls @ 50 mls/hr IV .Q20H [facility] Magnesium Hydroxide (Milk Of Magnesia) 30 ml PO DAILYP PRN PRN Reason: Constipation Naloxone HCl (Narcan) 0.1 mg IV Q2MIN PRN PRN Reason: Opiate Reversal Ondansetron HCl (Zofran) 4 mg IV Q4HP PRN PRN Reason: Nausea And Vomiting Last Admin: 07/15/17 08:37 Dose: 4 mg Sodium Chloride (Saline Flush) 10 ml IV Q8 [facility] Last Admin: 07/16/17 08:01 Dose: 10 ml Vitamin D (Vitamin D3) 1,000 unit PO QDAY [facility] Last Admin: 07/16/17 09:43 Dose: 1,000 unit - ABG Interpretation ABG results: 07/12/17 23:15 ABG Methemoglobin 0.3 L VBG pH 7.23 L VBG pCO2 21.2 L VBG pO2 73 H VBG HCO3 8.7 L* VBG Total CO2 9.4 L* VBG O2 Saturation 86.4 H VBG Base Excess -17.0 L Medical - PN: A/P - Time Spent With Patient Total time spent is greater than 50% in coordination of care (as documented) at patient's floor/unit and/or counseling patient: 25 - 35 minutes (1) Metabolic acidosis Status: Acute Current Visit: Yes (2) Acute renal failure Problem details: Since she apparently does not have a secretory diarrhea I suspect the gastrin, VIP,chromogranin, etc will not be enlightening. Will follow the colon bx's with interest. ? microscopic colitis. Renal failure responding to current supportive measures. Status: Acute Current Visit: Yes (3) Rheumatoid arthritis Status: Chronic Current Visit: No (4) Memory difficulties Status: Chronic Current Visit: No - Narrative A/P Narrative: #1. Renal. Acute on chronic renal failure. There is presumably at least some degree of dehydration, likely due to current medications, and probable poor p.o. intake and chr diarrhea. Renal function improving Creat 5.2, K stable, Bicarb still high, off bicarb drip now. -Renal function is improving, acidosis appears resolved.. IV fluids changed to normal saline. Nephrology following. Consult appreciated. -Monitor labs, including calcium and phosphorus. Continue with hydration. 2. Recent fall. No injuries reported. 3. Hematologic/Infectious disease. Leukocytosis resolved. Blood cultures grew a gram-positive anaerobe. The lap seems to think this is a contaminant.. Will DC IV Zosyn, although the patient does continue to run intermittent low-grade fevers. -Chronic anemia, likely due to chronic renal disease. 4. Cardiac. Reported history of coronary artery disease and CHF. -All heart medicines are on hold regarding hypotension. We will resume Coreg when it appears that can be tolerated. Otherwise diuretics and KASHMIR inhibitor are on hold. she is off levophed. -Chest x-ray suggestive of mild early pulmonary vascular congestion. Decreased IV fluid rate and follow. 5. CODE STATUS: Her chart indicates she has a DNR CODE STATUS. Nursing staff did contact her son/POA, and he further clarified that they would like full code except no intubation. 6. DVT prophylaxis: Sq heparin. 7. Neurologic. Patient has history of, as well as symptoms of, significant dementia. 8. Rheumatologic. History of rheumatoid arthritis, without current complaints of pain. 9. History of vitamin D deficiency. #10. GI. -Continues with persistent intermittent large volume watery diarrhea. Dr. Cadena feels that this may be consistent with an osmotic diarrhea. Colon biopsies were apparently negative for microscopic colitis, but duodenal biopsies do show some villi blunting. There is a possibility of gluten sensitivity. He did order a celiac panel. -I also wonder about the possible role of her ovarian mass, even though it has appeared stable on imaging. Will check CEA and CA 125. Presently on lomotil, Monitor. Cholestyramine started. -No gluten-free, dairy free diet. . Medical - PN: Qual - Stroke Symptom Onset Unknown: No - VTE Deep Vein Thrombosis/Pulmonary Embolism Present on Admission: No
[2017-07-16] MEDS ORDERED: POTASSIUM CHLORIDE 40 MEQ in DEXTROSE 5% IN WATER 500 ML IV PRN (11:27)
[2017-07-16] MEDS ORDERED: MAGNESIUM SULFATE 8.12 MEQ in DEXTROSE 5% IN WATER 50 ML IV PRN (11:29)
[2017-07-16] MEDS ORDERED: NACL 0.9% W/KCL 20MEQ 1,000 ML IV SCH (11:30)
[2017-07-16] MEDS: NACL 0.9% W/KCL 20MEQ 1,000 ML IV SCH (12:19)
[2017-07-16] MEDS: 0.9 % SODIUM CHLORIDE 250 ML IV SCH (13:56)
--- NOTE | 2017-07-16 13:59 | Surgical Pathology Report ---
HISTOLOGY SPECIMEN MICROSCOPIC DIAGNOSIS SPECIMEN A - SMALL BOWEL, DUODENUM, BIOPSY: -- MILD CHRONIC DUODENITIS WITH FOCAL MUCOSAL EROSION AND SHORTENED MUCOSAL VILLI. (SEE COMMENT) -- AB/PAS STAIN NEGATIVE FOR GASTRIC SURFACE METAPLASIA (ADEQUATE TECHNICAL CONTROL). -- ALCIAN YELLOW STAIN NEGATIVE FOR HELICOBACTER PYLORI TYPE ORGANISMS (ADEQUATE TECHNICAL CONTROL). -- NO SIGNIFICANT EPITHELIAL LYMPHOCYTOSIS IDENTIFIED. SPECIMEN B - STOMACH, ANTRUM, BIOPSY: -- MILD-MODERATE CHRONIC GASTRITIS WITH FOCAL INTESTINAL METAPLASIA, FIBROSIS AND FEATURES SUGGESTIVE OF REACTIVE GASTROPATHY. -- ALCIAN YELLOW STAIN NEGATIVE FOR HELICOBACTER PYLORI TYPE ORGANISMS (ADEQUATE TECHNICAL CONTROL). SPECIMEN C - SMALL BOWEL, TERMINAL ILEUM, BIOPSY: -- INTESTINAL MUCOSA WITH NO SPECIFIC DIAGNOSTIC CHANGE. -- NO ACTIVE INFLAMMATION OR SIGNIFICANT EPITHELIAL LYMPHOCYTOSIS IDENTIFIED. SPECIMEN D - COLON, RANDOM, BIOPSIES: -- COLONIC MUCOSA WITH NO SPECIFIC DIAGNOSTIC CHANGE. -- NEGATIVE FOR MICROSCOPIC COLITIS. (ACP:[email or web address]) COMMENT: The duodenal biopsy has three portions of mucosa with focal mucosal ulceration, mild chronic inflammation and patchy slight active inflammation. In one area, the mucosa has shortened villi with slight fibrosis. No significant epithelial lymphocytosis is seen. Clinical and serologic correlation is suggested. CLINICAL HISTORY Profuse diarrhea; weakness; possible UTI; shaking; acue renal failure. PROCEDURAL IMPRESSION Multiple small duodenal ulcers with erosions; pandiverticulosis, otherwise normal colon; rule out H. pylori. GROSS DESCRIPTION Specimen A: Received in formalin labeled duodenal biopsy, are three fragments of iglesias tissue ranging in size in from 0.2 to 0.3 cm. Totally submitted - one cassette. Specimen B: Received in formalin labeled antrum, are two fragments of iglesias tissue ranging in size from 0.3 to 0.4 cm. Totally submitted - one cassette. Specimen C: Received in formalin labeled terminal ileum biopsy, are four fragments of iglesias tissue ranging in size from 0.2 up to 0.6 cm. Totally submitted - one cassette. Specimen D: Received in formalin labeled random colon biopsies, are multiple fragments of iglesias tissue ranging in size from 0.1 up to 0.5 cm. Totally submitted - one cassette. (KGW:ronny) Electronically Signed by: Asael Mueller M.D.
[2017-07-16] MEDS: CARVEDILOL 3.125 MG TABLET PO SCH (17:38)
--- NOTE | 2017-07-16 17:47 | Internal Med Progress Note ---
Medical - PN: Subj Patient information: Note initiated : 07/16/17 at 5:45 pm Service Date, if different from initiated Date: [] Patient: Rabia Seals 87 y/o F admitted on 07/12/17 for Weakness,Possible UTI ,Shaking/Acute Renal Failure. Chief Complaint: [diarrhea] Nursing staff reports 2 substantial BM's today of large amt; one of pudding consistency and one again watery. Has been eating limited qty of food. - Constitutional Vitals: Vital Signs Temp Pulse Resp BP Pulse Ox 99.2 F H 80 18 115/55 94 07/16/17 16:00 07/16/17 10:20 07/16/17 12:00 07/16/17 12:00 07/16/17 12:00 Period Temp Pulse Resp BP Sys/Marino Pulse Ox Last 24 Hr 97.7 F-99.9 F 69-80 17-24 115-134/45-63 94-98 Intake and Output 07/16/17 07/16/17 07/16/17 05:59 13:59 21:59 Intake Total 1400 / 1400 2257 / 2257 610 / 610 Output Total 700 / 700 400 / 400 Balance 700 / 700 1857 / 1857 610 / 610 Weight 195 lb 8 oz Patient Weight 07/17/17 05:59 Weight 195 lb 8 oz Intake & Output: Intake & Output 07/16/17 07/16/17 07/16/17 05:59 13:59 21:59 Intake Total 1400 / 1400 2257 / 2257 610 / 610 Output Total 700 / 700 400 / 400 Balance 700 / 700 1857 / 1857 610 / 610 Weight 195 lb 8 oz Intake: IV 1050 / 1050 1377 / 1377 Sodium Chloride 0.9% 1, 1000 / 1000 1327 / 1327 000 ml @ 125 mls/hr IV . Q8H [facility] Rx#:[id number] Zosyn 2.25 gm In Dextrose 50 / 50 50 / 50 5% in Water 50 ml @ 100 mls/hr IV Q12H [facility] Rx#: [id number] Oral 350 / 350 880 / 880 610 / 610 Output: Urine Catheter Amount 700 / 700 400 / 400 Other: Meal Lunch Percent of Meal Consumed 25% Feeding Ability Independent # Bowel Movements 0 # of times incontinent of 1 Bowels General appearance: no acute distress - GI/Abdominal GI/Abdominal exam: Present: soft. Absent: guarding Medical - PN: Obj Da - Labs CBC & Chem 7: 07/16/17 03:30 07/16/17 03:30 Labs: Abnormal Lab Results 07/16/17 07/16/17 07/15/17 03:30 03:30 03:40 WBC RBC 3.05 L 3.12 L Hgb 9.1 L 9.4 L Hct 27.1 L 27.8 L Gran % Lymph % (Auto) 13.4 L 12.0 L Gran # Lymph # (Auto) 1.3 L 1.3 L Potassium Chloride Carbon Dioxide BUN 67 H Creatinine 4.4 H Glucose Calcium 7.2 L Magnesium Lactate Dehydrogenase 325 H Total Protein 5.1 L Albumin 2.7 L 07/15/17 07/14/17 07/14/17 03:40 03:43 03:43 WBC 11.9 H RBC 3.46 L Hgb 10.4 L Hct 30.5 L Gran % 82.1 H Lymph % (Auto) 9.9 L Gran # 9.8 H Lymph # (Auto) 1.2 L Potassium 2.8 L* Chloride 95 L 91 L Carbon Dioxide 36 H 32 H BUN 87 H 108 H* Creatinine 5.2 H* 5.7 H* Glucose 118 H Calcium 6.7 L 7.2 L Magnesium 1.3 L 1.5 L Lactate Dehydrogenase 266 H Total Protein 5.0 L 5.3 L Albumin 2.7 L 2.7 L Meds: Medications Acetaminophen (Tylenol) 650 mg PO Q6HP PRN PRN Reason: PAIN/FEVER > 101 Last Admin: 07/14/17 09:38 Dose: 650 mg Hydrocodone Bitart/Acetaminophen ([place] 5/325mg) 1 tab PO Q4-6HP PRN PRN Reason: Pain Aspirin (Aspirin) 81 mg PO DAILY [facility] Last Admin: 07/16/17 09:40 Dose: 81 mg Calcium Carbonate/Glycine (Tums) 1,000 mg CHEWED TIDCC [facility] Last Admin: 07/16/17 17:38 Dose: 1,000 mg Carvedilol (Coreg) 3.125 mg PO BIDCC [facility] Last Admin: 07/16/17 17:38 Dose: 3.125 mg Cholestyramine Resin (Questran Light) 4 gm PO BID@0700,2000 [facility] Diphenoxylate HCl/Atropine (Lomotil) 1 tab PO Q4HP PRN PRN Reason: Diarrhea Last Admin: 07/16/17 14:46 Dose: 1 tab Docusate Sodium (Colace) 100 mg PO BID PRN PRN Reason: Constipation Heparin Sodium (Porcine) (Heparin) 5,000 unit SQ Q12 [facility] Last Admin: 07/16/17 09:40 Dose: 5,000 unit Piperacillin Sod/Tazobactam (Sod 2.25 gm/ Dextrose) 50 mls @ 100 mls/hr IV Q12H [facility] Last Infusion: 07/16/17 10:10 Dose: Infused Norepinephrine Bitartrate 8 mg (/ Sodium Chloride) 250 mls @ 18.75 mls/hr IV Q24HP PRN; Protocol; 10 MCG/MIN PRN Reason: MAP <60 Potassium Chloride 40 meq/ (Dextrose) 520 mls @ 130 mls/hr IV PRN PRN PRN Reason: hypokalemia Magnesium Sulfate 8.12 meq/ (Dextrose) 52 mls @ 104 mls/hr IV PRN PRN PRN Reason: Hypomagnesemia Potassium Chloride/Sodium Chloride (Nacl 0.9% W/Kcl 20meq 1000ml) 1,000 mls @ 100 mls/hr IV Q20H [facility] Last Admin: 07/16/17 12:19 Dose: 100 mls/hr Magnesium Hydroxide (Milk Of Magnesia) 30 ml PO DAILYP PRN PRN Reason: Constipation Naloxone HCl (Narcan) 0.1 mg IV Q2MIN PRN PRN Reason: Opiate Reversal Ondansetron HCl (Zofran) 4 mg IV Q4HP PRN PRN Reason: Nausea And Vomiting Last Admin: 07/15/17 08:37 Dose: 4 mg Sodium Chloride (Saline Flush) 10 ml IV Q8 [facility] Last Admin: 07/16/17 12:37 Dose: 10 ml Vitamin D (Vitamin D3) 1,000 unit PO QDAY [facility] Last Admin: 07/16/17 09:43 Dose: 1,000 unit - Impressions Her colon bx's were neg for microscopic colitis. Her duodenal bx's showed some villi blunting but without lymphocytic infiltrate. will check celiac panel. Blood culture positive on admission has been identified as a contaminant. - ABG Interpretation ABG results: 07/12/17 23:15 ABG Methemoglobin 0.3 L VBG pH 7.23 L VBG pCO2 21.2 L VBG pO2 73 H VBG HCO3 8.7 L* VBG Total CO2 9.4 L* VBG O2 Saturation 86.4 H VBG Base Excess -17.0 L Medical - PN: A/P - Time Spent With Patient Total time spent is greater than 50% in coordination of care (as documented) at patient's floor/unit and/or counseling patient: (1) Acute renal failure Status: Acute Assessment and plan: Renal function improving but diarrhea continues. Based on duodenal bx's will check a celiac panel. Also will advise gluten free trial, and low lactose diet. Will repeat stool electrolytes on watery stool to recalculate stool osmolar gap. Would discontinue IV antibiotic (piperacillin). Will start cholestyramine at bid dosing. Current Visit: Yes Medical - PN: Qual - Stroke Symptom Onset Unknown: No - VTE Deep Vein Thrombosis/Pulmonary Embolism Present on Admission: No
[2017-07-16] MEDS: ONDANSETRON 4 MG/2 ML VIAL IV PRN (20:39)
[2017-07-16] MEDS: CHOLESTYRAMINE/ASPARTAME 4 GM POWD.PACK PO SCH (20:43)
[2017-07-17] MEDS ORDERED: FUROSEMIDE 20 MG/2 ML VIAL IV ONE ×2 (01:06→01:20)
[2017-07-17 04:55] LABS: Basophils # (Auto) 0 K/mcL (0.0-0.3); Basophils % (Auto) 0.3 % (0.0-2.0); Eosinophils # (Auto) 0.4 K/mcL (0.0-0.7); Eosinophils % (Auto) 4.5 % (0.0-7.0); Lymphocytes # (Auto) 0.9 K/mcL (1.5-4.8); Mean Cell Volume 89.6 fL (80.0-100.0); Mean Corpuscular HGB Conc 33.3 g/dL (31.0-36.0); Mean Corpuscular Hemoglobin 29.8 pg (26.0-34.0); Monocytes # (Auto) 0.8 K/mcL (0.1-0.9); Monocytes % (Auto) 8.2 % (1.0-12.0); Platelet Count 233 K/mcL (140-440); RBC 3.06 M/mcL (4.00-5.20); Red Cell Distribution Width 14.4 % (11.5-14.5)
[2017-07-17 05:16] LABS: ALT/SGPT 11 U/l (0-40); Albumin 2.7 gm/dL (3.2-5.2); Alkaline Phosphatase 52 U/L (39-117); Bilirubin,Direct < 0.2 mg/dL (0.0-0.3); Blood Urea Nitrogen 52 mg/dl (8-23); Gamma Glutamyl Transpeptidase 13 U/L (5-36); Magnesium 1.7 mg/dL (1.6-2.5); Uric Acid 5.5 mg/dL (2.5-8.0)
[2017-07-17] MEDS: 0.9 % SODIUM CHLORIDE 10 ML SYRINGE IV SCH ×3 (05:36→21:46)
[2017-07-17] MEDS: CHOLESTYRAMINE/ASPARTAME 4 GM POWD.PACK PO SCH ×2 (07:27→22:11)
[2017-07-17] MEDS: NACL 0.9% W/KCL 20MEQ 1,000 ML IV SCH (09:00)
[2017-07-17] MEDS: CALCIUM CARBONATE 500 MG TAB.CHEW CHEWED SCH ×3 (09:08→17:10)
[2017-07-17] MEDS: HEPARIN 5,000 UNIT/ML VIAL SQ SCH ×2 (09:08→21:46)
[2017-07-17] MEDS: CARVEDILOL 3.125 MG TABLET PO SCH ×2 (09:08→17:09)
[2017-07-17] MEDS: VITAMIN D3 1,000 UNIT TABLET PO SCH (09:08)
[2017-07-17] MEDS: ASPIRIN 81 MG TAB.CHEW PO SCH (09:09)
[2017-07-17] MEDS: PIPERACILLIN SODIUM/TAZOBACTAM 2.25 GM in DEXTROSE 5% IN WATER 50 ML IV SCH ×2 (09:11→21:46)
--- NOTE | 2017-07-17 10:14 | XRay Report ---
CLINICAL INFORMATION: Shortness of breath COMPARISON: 07/13/2017 FINDINGS: Moderate cardiomegaly is unchanged. Mediastinum is unremarkable. Pulmonary vessels are now mildly distended. Moderate left and small right basilar infiltrate or atelectasis noted. Small bilateral pleural effusions appreciated IMPRESSION: Mild CHF New moderate left and small right basilar infiltrate or atelectasis. Suspect aspiration Interpreted and Authenticated by: Vincenzo Prabhakar 07/17/17
[2017-07-17] MEDS ORDERED: FUROSEMIDE 40 MG TABLET PO ONE (10:48)
--- NOTE | 2017-07-17 13:18 | Internal Med Progress Note ---
Medical - PN: Subj Patient information: Note initiated : 07/17/17 at 1:18 pm Patient: Rabia Seasl 87 y/o F admitted on 07/12/17 for Weakness,Possible UTI ,Shaking/Acute Renal Failure. Interval history: July 12, 2017: History of present illness: Ms. Seals is a 87 year old with a history of dementia, congestive heart failure, mild chronic kidney disease. She reportedly lives at [facility]. We have a history that she fell about 3 days ago as she was walking out of the bathroom. She states she landed on her behind, and really did not hurt herself. Her son apparently asked that she be transported to the ER today for evaluation, as he was told that she was getting weaker. The patient denies that she has been feeling weak. She says she really does not know why she was sent over. ER evaluation showed very severe acute on chronic kidney failure. She also was noted to have significant leukocytosis, and severely elevated anion gap. She is admitted for further evaluation and treatment of her renal failure. Otherwise, the patient is a very poor historian. She believes she has chronic diarrhea, but otherwise cannot recall any recent fevers or chills, headaches or dizziness, new eye or ear symptoms, sore throat or cough. She denies chest pain or palpitations, shortness of breath or wheezing, abdominal pain, nausea or vomiting, constipation, dysuria. However, she also cannot recall the year, and does not believe that she takes daily medications, although [facility] records indicate she takes numerous medications every day. July 13: The patient did fairly well overnight. She did drop her blood pressure a few times initially, requiring the institution of vasopressors, but responded very quickly to these. She has continued to deny significant symptoms, but staff noted that she was too weak for them to get her up this morning, even with the help with physical therapy. Otherwise, she denies fever or chills, headaches or dizziness, chest pain or shortness of breath, GI or symptoms. However, this afternoon, the patient did have 3 bouts of impressive watery diarrhea. July 14: This morning, the patient was feeling quite fatigued. She had a large amount of watery diarrhea last night, so a rectal tube was placed, but then it was removed as she apparently did not have any diarrhea by 8:00 this morning. However after receiving oral contrast for CT scan, she again developed profuse watery diarrhea. Potassium level was quite low this morning, and was replaced IV. Blood cultures are growing a gram-positive nader today. The patient continues to be awake and alert. She is too weak to stand up on her own, and requires significant assistance, but still insists that she is fine. She denies fever chills, headaches or dizziness, chest pain or shortness of breath, abdominal pain, nausea or vomiting. She believes her diarrhea is chronic. She denies dysuria. July 15: Patient seen examined, sitting comfortably in bed, denies any acute issues, admits some weakness. The patient had EGD/ Colonoscopy done yesterday which was negative. She thinks her diarrhea is getting better. Stool studies sent by GI, Appears that she has secretory type of diarrhea. Await Colonic biopsies. Patients creat is trending down, at 5.7 today. The patient Blood culture isolation and sensitivity is still pending, remains on zosyn. Educated to increase fluid intake orally. July 16: Today, the patient continues to say that she feels fine. However, nursing staff notes that she continues to have intermittent watery diarrhea, with fecal incontinence. The patient cannot really recall these episodes. She denies fever chills, chest pain or shortness of breath, GI or complaints, but her history is clearly unreliable. GI has suggested that perhaps we try the patient on a gluten-free, dairy free diet, as she did have some Hagan shortening on her bowel biopsies. July 17. -Today, the patient had 1 mucus type stool, and then 1 very loose watery stool. -During the night, she developed increasing lung crackles, and decreased O2 saturation. She was given IV Lasix, and seemed to improve. Subsequent BNP level was quite elevated. She does have a history of CHF, but we have been holding most of her medications. -Renal function continues to improve, with declining BUN and creatinine. -Patient continues with fairly poor oral intake, so still requires some IV hydration. She will be changed to a gluten-free diet today. We still have no definite cause for her persistent diarrhea. - Constitutional Vitals: Vital Signs Temp Pulse Resp BP Pulse Ox 99.7 F H 71 22 118/64 98 07/17/17 12:26 07/17/17 12:26 07/17/17 12:26 07/17/17 12:26 07/17/17 12:26 Period Temp Pulse Resp BP Sys/Marino Pulse Ox Last 24 Hr 97.9 F-99.7 F 57-85 18-22 107-160/46-86 94-100 Intake and Output 07/16/17 07/17/17 07/17/17 21:59 05:59 13:59 Intake Total 740 / 740 1000 / 1000 450 / 450 Output Total 350 / 350 1000 / 1000 Balance 390 / 390 0 / 0 450 / 450 Weight 184 lb Intake & Output: Intake & Output 07/16/17 07/17/17 07/17/17 21:59 05:59 13:59 Intake Total 740 / 740 1000 / 1000 450 / 450 Output Total 350 / 350 1000 / 1000 Balance 390 / 390 0 / 0 450 / 450 Weight 184 lb Intake: IV 50 / 50 1000 / 1000 50 / 50 NaCl 0.9% W/KCl 20Meq 1000 / 1000 1000ML 1,000 ml @ 100 mls /hr IV Q20H KLAUDIA Rx#: [id number] Zosyn 2.25 gm In Dextrose 50 / 50 50 / 50 5% in Water 50 ml @ 100 mls/hr IV Q12H KLAUDIA Rx#: [id number] Oral 690 / 690 400 / 400 Output: Urine Catheter Amount 350 / 350 450 / 450 Void Amount 550 / 550 Other: Meal Dinner Breakfast Percent of Meal Consumed 25% 50% Feeding Ability Assist with Tray Set Up Assist with Tray Set Up # Bowel Movements 1 # of times incontinent of 1 Bowels On exam today, she is a bit groggy. She continues to deny anything except that she feels quite cold this morning she is asking for more blankets. . She does not recall having diarrhea today. She denies fever chills, headaches or dizziness, chest pain or shortness of breath, and any abdominal symptoms. T-max 99.7. Heart rate ranging from 48-71. Respiratory rate 20. Blood pressure 124/56. O2 saturation 97% on 2 L. Intake and output for yesterday were still positive by about 2 L. Patient is about 12 L ahead on fluid, but a lot of her diarrhea episodes were not measurable Neck shows no obvious JVD. Cardiac exam shows regular rate and rhythm. Lungs are clear to auscultation, without obvious rales, rhonchi, wheezes. She may be a bit decreased at the bases. Abdomen is soft and nontender with active bowel sounds. Extremities show trace edema. Neurologic exam: Patient remains extremely forgetful, but otherwise exam is nonfocal. Medical - PN: Obj Da - Labs CBC & Chem 7: 07/17/17 04:00 07/17/17 04:00 Labs: Abnormal Lab Results 07/17/17 07/17/17 07/17/17 04:00 04:00 04:00 RBC 3.06 L Hgb 9.1 L Hct 27.4 L Lymph % (Auto) 9.0 L Lymph # (Auto) 0.9 L Chloride Carbon Dioxide BUN 52 H Creatinine 3.8 H Calcium 7.6 L Magnesium Lactate Dehydrogenase 289 H NT-Pro-B Natriuret Pep 62498.0 H Total Protein 5.4 L Albumin 2.7 L 07/16/17 07/16/17 07/15/17 03:30 03:30 03:40 RBC 3.05 L 3.12 L Hgb 9.1 L 9.4 L Hct 27.1 L 27.8 L Lymph % (Auto) 13.4 L 12.0 L Lymph # (Auto) 1.3 L 1.3 L Chloride Carbon Dioxide BUN 67 H Creatinine 4.4 H Calcium 7.2 L Magnesium Lactate Dehydrogenase 325 H NT-Pro-B Natriuret Pep Total Protein 5.1 L Albumin 2.7 L 07/15/17 03:40 RBC Hgb Hct Lymph % (Auto) Lymph # (Auto) Chloride 95 L Carbon Dioxide 36 H BUN 87 H Creatinine 5.2 H* Calcium 6.7 L Magnesium 1.3 L Lactate Dehydrogenase 266 H NT-Pro-B Natriuret Pep Total Protein 5.0 L Albumin 2.7 L July 17: 2 bottles blood cultures are now growing bacteria. The second bottle is growing both propionibacterium granulosum, and a second gram-positive coccobacillus. Chest x-ray: Shows pulmonary vascular congestion. Moderate left and small right basilar infiltrate versus atelectasis is also noted. Suspect aspiration. Stool sodium and potassium are pending. Celiac disease panel is pending. July 14: Stool for Hemoccult was positive today. C. difficile screen is negative. Blood culture is growing Propionibacterium granulosum, thought to be a contaminant. Abdominal CT with oral contrast, but without IV contrast: Shows cholelithiasis, small amount of pelvic ascites, stable 5 cm right ovarian tumor and 5 cm simple cyst of the left ovary, sigmoid diverticulosis, small bilateral pleural effusions, moderate L2 compression fracture. July 13: ABG: PH 7.49, PCO2 25, PO2 85, bicarb 19, O2 saturation 99% Renal ultrasound: Shows normal-appearing kidneys and bladder. Gallstones are noted within the gallbladder without evidence of cholecystitis. Chest x-ray: Shows mild cardiomegaly. Upper lobe pulmonary vessels slightly distended, consistent with possible mild CHF. July 12: Troponin is borderline at 0.04 ProBNP is elevated at 1797 CBC: White blood cell count 16,000, him hemoglobin 11.5, hematocrit 33, platelets 246,000. Granulocyte count elevated at 14,000. Lactic acid normal at 1.0 Anion gap is elevated at 24. Ionized calcium is low at 1.01 Chest x-ray: Stable cardiomegaly. No infiltrates. Meds: Medications Acetaminophen (Tylenol) 650 mg PO Q6HP PRN PRN Reason: PAIN/FEVER > 101 Last Admin: 07/14/17 09:38 Dose: 650 mg Hydrocodone Bitart/Acetaminophen ([place] 5/325mg) 1 tab PO Q4-6HP PRN PRN Reason: Pain Aspirin (Aspirin) 81 mg PO DAILY [facility] Last Admin: 07/17/17 09:09 Dose: 81 mg Calcium Carbonate/Glycine (Tums) 1,000 mg CHEWED TIDCC [facility] Last Admin: 07/17/17 12:17 Dose: 1,000 mg Carvedilol (Coreg) 3.125 mg PO BIDCC [facility] Last Admin: 07/17/17 09:08 Dose: 3.125 mg Cholestyramine Resin (Questran Light) 4 gm PO BID@0700,2000 [facility] Last Admin: 07/17/17 07:27 Dose: 4 gm Diphenoxylate HCl/Atropine (Lomotil) 1 tab PO Q4HP PRN PRN Reason: Diarrhea Last Admin: 07/16/17 14:46 Dose: 1 tab Docusate Sodium (Colace) 100 mg PO BID PRN PRN Reason: Constipation Furosemide (Lasix) 40 mg PO DAILY [facility] Heparin Sodium (Porcine) (Heparin) 5,000 unit SQ Q12 [facility] Last Admin: 07/17/17 09:08 Dose: 5,000 unit Piperacillin Sod/Tazobactam (Sod 2.25 gm/ Dextrose) 50 mls @ 100 mls/hr IV Q12H [facility] Last Infusion: 07/17/17 09:41 Dose: Infused Norepinephrine Bitartrate 8 mg (/ Sodium Chloride) 250 mls @ 18.75 mls/hr IV Q24HP PRN; Protocol; 10 MCG/MIN PRN Reason: MAP <60 Potassium Chloride 40 meq/ (Dextrose) 520 mls @ 130 mls/hr IV PRN PRN PRN Reason: hypokalemia Magnesium Sulfate 8.12 meq/ (Dextrose) 52 mls @ 104 mls/hr IV PRN PRN PRN Reason: Hypomagnesemia Potassium Chloride/Sodium Chloride (Nacl 0.9% W/Kcl 20meq 1000ml) 1,000 mls @ 100 mls/hr IV Q20H [facility] Last Admin: 07/17/17 09:00 Dose: Not Given Magnesium Hydroxide (Milk Of Magnesia) 30 ml PO DAILYP PRN PRN Reason: Constipation Naloxone HCl (Narcan) 0.1 mg IV Q2MIN PRN PRN Reason: Opiate Reversal Ondansetron HCl (Zofran) 4 mg IV Q4HP PRN PRN Reason: Nausea And Vomiting Last Admin: 07/16/17 20:39 Dose: 4 mg Sodium Chloride (Saline Flush) 10 ml IV Q8 [facility] Last Admin: 07/17/17 05:36 Dose: 10 ml Vitamin D (Vitamin D3) 1,000 unit PO QDAY [facility] Last Admin: 07/17/17 09:08 Dose: 1,000 unit - ABG Interpretation ABG results: 07/12/17 23:15 ABG Methemoglobin 0.3 L VBG pH 7.23 L VBG pCO2 21.2 L VBG pO2 73 H VBG HCO3 8.7 L* VBG Total CO2 9.4 L* VBG O2 Saturation 86.4 H VBG Base Excess -17.0 L Medical - PN: A/P - Time Spent With Patient Total time spent is greater than 50% in coordination of care (as documented) at patient's floor/unit and/or counseling patient: 25 - 35 minutes (1) Metabolic acidosis Status: Acute Current Visit: Yes (2) Acute renal failure Problem details: Since she apparently does not have a secretory diarrhea I suspect the gastrin, VIP,chromogranin, etc will not be enlightening. Will follow the colon bx's with interest. ? microscopic colitis. Renal failure responding to current supportive measures. Status: Acute Current Visit: Yes (3) Rheumatoid arthritis Status: Chronic Current Visit: No (4) Memory difficulties Status: Chronic Current Visit: No - Narrative A/P Narrative: #1. Renal. Acute on chronic renal failure. There is presumably at least some degree of dehydration, likely due to current medications, and probable poor p.o. intake and chr diarrhea. -Renal function is improving, acidosis appears resolved.. IV fluids changed to normal saline. Nephrology following. Consult appreciated. -Monitor labs, including calcium and phosphorus. -Patient seems now to be volume overloaded, so IV fluids have been decreased, and Lasix has been resumed. 2. Recent fall. No injuries reported. 3. Hematologic/Infectious disease. Leukocytosis resolved. Blood cultures grew a gram-positive anaerobe. A second blood culture bottle is now growing 2 different organisms. I have contacted the lab and asked them to get us ID and sensitivities on both of these. -Chronic anemia, likely due to chronic renal disease. 4. Cardiac. Reported history of coronary artery disease and CHF. -Patient did appear to develop volume overload yesterday, so was given IV Lasix. Oral Lasix will be resumed today as well. Decrease IV fluid rate. She is still not taking in oral fluids as well as we would help, so we will continue to encourage that as well. Resume Coreg as able. 5. CODE STATUS: Her chart indicates she has a DNR CODE STATUS. Nursing staff did contact her son/POA, and he further clarified that they would like full code except no intubation. 6. DVT prophylaxis: Sq heparin. 7. Neurologic. Patient has history of, as well as symptoms of, significant dementia. 8. Rheumatologic. History of rheumatoid arthritis, without current complaints of pain. 9. History of vitamin D deficiency. #10. GI. -Continues with persistent intermittent large volume watery diarrhea. Dr. Cadena feels that this may be consistent with an osmotic diarrhea. Colon biopsies were apparently negative for microscopic colitis, but duodenal biopsies do show some villi blunting. There is a possibility of gluten sensitivity. He did order a celiac panel. -I also wonder about the possible role of her ovarian mass, even though it has appeared stable on imaging. Will check CEA and CA 125. Presently on lomotil, Monitor. Cholestyramine started. -Trial gluten-free, dairy free diet. . Medical - PN: Qual - Stroke Symptom Onset Unknown: No - VTE Deep Vein Thrombosis/Pulmonary Embolism Present on Admission: No
[2017-07-17] MEDS: DEXTROSE 5%-1/2NS W/10MEQ KCL 1,000 ML IV SCH (15:35)
[2017-07-18 05:29] LABS: Basophils # (Auto) 0 K/mcL (0.0-0.3); Basophils % (Auto) 0.3 % (0.0-2.0); Eosinophils # (Auto) 0.5 K/mcL (0.0-0.7); Eosinophils % (Auto) 5.2 % (0.0-7.0); Granulocytes % (Auto) 73.7 % (38.0-78.0); Lymphocytes # (Auto) 1.1 K/mcL (1.5-4.8); Lymphocytes % (Auto) 12.6 % (15.5-49.0); Mean Cell Volume 89.9 fL (80.0-100.0); Mean Corpuscular HGB Conc 33.1 g/dL (31.0-36.0); Mean Corpuscular Hemoglobin 29.8 pg (26.0-34.0); Monocytes # (Auto) 0.7 K/mcL (0.1-0.9); Monocytes % (Auto) 8.2 % (1.0-12.0); Platelet Count 225 K/mcL (140-440); RBC 3.03 M/mcL (4.00-5.20)
[2017-07-18 05:44] LABS: ALT/SGPT 14 U/l (0-40); Albumin 2.6 gm/dL (3.2-5.2); Alkaline Phosphatase 50 U/L (39-117); Bilirubin,Direct < 0.2 mg/dL (0.0-0.3); Blood Urea Nitrogen 42 mg/dl (8-23); Gamma Glutamyl Transpeptidase 16 U/L (5-36); Magnesium 1.5 mg/dL (1.6-2.5); Uric Acid 5.1 mg/dL (2.5-8.0)
[2017-07-18] MEDS: 0.9 % SODIUM CHLORIDE 10 ML SYRINGE IV SCH ×3 (06:12→19:44)
[2017-07-18] MEDS ORDERED: FUROSEMIDE 40 MG TABLET PO SCH (09:00)
[2017-07-18] MEDS: ASPIRIN 81 MG TAB.CHEW PO SCH (09:05)
[2017-07-18] MEDS: VITAMIN D3 1,000 UNIT TABLET PO SCH (09:05)
[2017-07-18] MEDS: CALCIUM CARBONATE 500 MG TAB.CHEW CHEWED SCH ×3 (09:05→17:26)
[2017-07-18] MEDS: PIPERACILLIN SODIUM/TAZOBACTAM 2.25 GM in DEXTROSE 5% IN WATER 50 ML IV SCH ×2 (09:05→21:12)
[2017-07-18] MEDS: DIPHENOXYLATE HCL/ATROPINE 1 TABLET PO PRN (09:05)
[2017-07-18] MEDS: HEPARIN 5,000 UNIT/ML VIAL SQ SCH ×2 (09:06→21:15)
[2017-07-18] MEDS: CARVEDILOL 3.125 MG TABLET PO SCH ×2 (09:06→17:26)
--- NOTE | 2017-07-18 11:56 | Internal Med Progress Note ---
Medical - PN: Subj Patient information: Note initiated : 07/18/17 at 11:56 am Patient: Rabia Seals 87 y/o F admitted on 07/12/17 for Weakness,Possible UTI ,Shaking/Acute Renal Failure. Interval history: July 12, 2017: History of present illness: Ms. Seals is a 87 year old with a history of dementia, congestive heart failure, mild chronic kidney disease. She reportedly lives at [facility]. We have a history that she fell about 3 days ago as she was walking out of the bathroom. She states she landed on her behind, and really did not hurt herself. Her son apparently asked that she be transported to the ER today for evaluation, as he was told that she was getting weaker. The patient denies that she has been feeling weak. She says she really does not know why she was sent over. ER evaluation showed very severe acute on chronic kidney failure. She also was noted to have significant leukocytosis, and severely elevated anion gap. She is admitted for further evaluation and treatment of her renal failure. Otherwise, the patient is a very poor historian. She believes she has chronic diarrhea, but otherwise cannot recall any recent fevers or chills, headaches or dizziness, new eye or ear symptoms, sore throat or cough. She denies chest pain or palpitations, shortness of breath or wheezing, abdominal pain, nausea or vomiting, constipation, dysuria. However, she also cannot recall the year, and does not believe that she takes daily medications, although [facility] records indicate she takes numerous medications every day. July 13: The patient did fairly well overnight. She did drop her blood pressure a few times initially, requiring the institution of vasopressors, but responded very quickly to these. She has continued to deny significant symptoms, but staff noted that she was too weak for them to get her up this morning, even with the help with physical therapy. Otherwise, she denies fever or chills, headaches or dizziness, chest pain or shortness of breath, GI or symptoms. However, this afternoon, the patient did have 3 bouts of impressive watery diarrhea. July 14: This morning, the patient was feeling quite fatigued. She had a large amount of watery diarrhea last night, so a rectal tube was placed, but then it was removed as she apparently did not have any diarrhea by 8:00 this morning. However after receiving oral contrast for CT scan, she again developed profuse watery diarrhea. Potassium level was quite low this morning, and was replaced IV. Blood cultures are growing a gram-positive nader today. The patient continues to be awake and alert. She is too weak to stand up on her own, and requires significant assistance, but still insists that she is fine. She denies fever chills, headaches or dizziness, chest pain or shortness of breath, abdominal pain, nausea or vomiting. She believes her diarrhea is chronic. She denies dysuria. July 15: Patient seen examined, sitting comfortably in bed, denies any acute issues, admits some weakness. The patient had EGD/ Colonoscopy done yesterday which was negative. She thinks her diarrhea is getting better. Stool studies sent by GI, Appears that she has secretory type of diarrhea. Await Colonic biopsies. Patients creat is trending down, at 5.7 today. The patient Blood culture isolation and sensitivity is still pending, remains on zosyn. Educated to increase fluid intake orally. July 16: Today, the patient continues to say that she feels fine. However, nursing staff notes that she continues to have intermittent watery diarrhea, with fecal incontinence. The patient cannot really recall these episodes. She denies fever chills, chest pain or shortness of breath, GI or complaints, but her history is clearly unreliable. GI has suggested that perhaps we try the patient on a gluten-free, dairy free diet, as she did have some Hagan shortening on her bowel biopsies. July 17. -Today, the patient had 1 mucus type stool, and then 1 very loose watery stool. -During the night, she developed increasing lung crackles, and decreased O2 saturation. She was given IV Lasix, and seemed to improve. Subsequent BNP level was quite elevated. She does have a history of CHF, but we have been holding most of her medications. -Renal function continues to improve, with declining BUN and creatinine. -Patient continues with fairly poor oral intake, so still requires some IV hydration. She will be changed to a gluten-free diet today. We still have no definite cause for her persistent diarrhea. July 18: Today, the patient continues to say that she feels fine. She continues to have bouts of watery diarrhea. Appetite continues to be poor. She has significant memory loss, and is quite insistent that she does not have fever or chills, chest pain or shortness of breath, abdominal pain, nausea or vomiting or diarrhea, or dysuria. Per nursing staff, she remains incontinent. - Constitutional Vitals: Vital Signs Temp Pulse Resp BP Pulse Ox 98.7 F 73 30 H 136/78 96 07/18/17 08:00 07/18/17 04:00 07/18/17 08:00 07/18/17 08:00 07/18/17 09:08 Period Temp Pulse Resp BP Sys/Marino Pulse Ox Last 24 Hr 97.3 F-99.7 F 48-77 20-30 116-136/54-78 95-98 Intake and Output 07/17/17 07/18/17 07/18/17 21:59 05:59 13:59 Intake Total 740 / 740 250 / 250 200 / 200 Output Total 1050 / 1050 1025 / 1025 Balance -310 / -310 -775 / -775 200 / 200 Weight 188 lb Intake & Output: Intake & Output 07/17/17 07/18/17 07/18/17 21:59 05:59 13:59 Intake Total 740 / 740 250 / 250 200 / 200 Output Total 1050 / 1050 1025 / 1025 Balance -310 / -310 -775 / -775 200 / 200 Weight 188 lb Intake: IV 50 / 50 Zosyn 2.25 gm In Dextrose 50 / 50 5% in Water 50 ml @ 100 mls/hr IV Q12H [facility] Rx#: [id number] Oral 740 / 740 200 / 200 200 / 200 Output: Urine Catheter Amount 1050 / 1050 1025 / 1025 Other: Meal Dinner Breakfast Percent of Meal Consumed 100% 100% Feeding Ability Assist with Tray Set Up Independent # of times incontinent of 1 Bowels She is sitting up in a chair, wrapped in blankets. She continues to complain of feeling cold. Respiratory rate varies from 20-30. O2 saturation is 96% on 3 L. Neck shows no obvious JVD. Cardiac exam shows regular rate and rhythm. Lungs are clear to auscultation, without obvious rales, rhonchi, wheezes. She may be a bit decreased at the bases. Abdomen is soft and nontender with active bowel sounds. Extremities show trace edema. Neurologic exam: Patient remains extremely forgetful, but otherwise exam is nonfocal. Medical - PN: Obj Da - Labs CBC & Chem 7: 07/18/17 04:02 07/18/17 04:02 Labs: Abnormal Lab Results 07/18/17 07/18/17 07/17/17 04:02 04:02 04:00 RBC 3.03 L Hgb 9.0 L Hct 27.2 L Lymph % (Auto) 12.6 L Lymph # (Auto) 1.1 L BUN 42 H Creatinine 3.9 H Calcium 8.0 L Magnesium 1.5 L Lactate Dehydrogenase 275 H NT-Pro-B Natriuret Pep 63175.0 H Total Protein 5.2 L Albumin 2.6 L 07/17/17 07/17/17 07/16/17 04:00 04:00 03:30 RBC 3.06 L 3.05 L Hgb 9.1 L 9.1 L Hct 27.4 L 27.1 L Lymph % (Auto) 9.0 L 13.4 L Lymph # (Auto) 0.9 L 1.3 L BUN 52 H Creatinine 3.8 H Calcium 7.6 L Magnesium Lactate Dehydrogenase 289 H NT-Pro-B Natriuret Pep Total Protein 5.4 L Albumin 2.7 L 07/16/17 03:30 RBC Hgb Hct Lymph % (Auto) Lymph # (Auto) BUN 67 H Creatinine 4.4 H Calcium 7.2 L Magnesium Lactate Dehydrogenase 325 H NT-Pro-B Natriuret Pep Total Protein 5.1 L Albumin 2.7 L July 17: 2 bottles blood cultures are now growing bacteria. The second bottle is growing both propionibacterium granulosum, and a second gram-positive coccobacillus. Chest x-ray: Shows pulmonary vascular congestion. Moderate left and small right basilar infiltrate versus atelectasis is also noted. Suspect aspiration. Stool sodium and potassium are pending. Celiac disease panel is pending. July 14: Stool for Hemoccult was positive today. C. difficile screen is negative. Blood culture is growing Propionibacterium granulosum, thought to be a contaminant. Abdominal CT with oral contrast, but without IV contrast: Shows cholelithiasis, small amount of pelvic ascites, stable 5 cm right ovarian tumor and 5 cm simple cyst of the left ovary, sigmoid diverticulosis, small bilateral pleural effusions, moderate L2 compression fracture. July 13: ABG: PH 7.49, PCO2 25, PO2 85, bicarb 19, O2 saturation 99% Renal ultrasound: Shows normal-appearing kidneys and bladder. Gallstones are noted within the gallbladder without evidence of cholecystitis. Chest x-ray: Shows mild cardiomegaly. Upper lobe pulmonary vessels slightly distended, consistent with possible mild CHF. July 12: Troponin is borderline at 0.04 ProBNP is elevated at 1797 CBC: White blood cell count 16,000, him hemoglobin 11.5, hematocrit 33, platelets 246,000. Granulocyte count elevated at 14,000. Lactic acid normal at 1.0 Anion gap is elevated at 24. Ionized calcium is low at 1.01 Chest x-ray: Stable cardiomegaly. No infiltrates. Meds: Medications Acetaminophen (Tylenol) 650 mg PO Q6HP PRN PRN Reason: PAIN/FEVER > 101 Last Admin: 07/14/17 09:38 Dose: 650 mg Hydrocodone Bitart/Acetaminophen ([place] 5/325mg) 1 tab PO Q4-6HP PRN PRN Reason: Pain Aspirin (Aspirin) 81 mg PO DAILY [facility] Last Admin: 07/18/17 09:05 Dose: 81 mg Calcium Carbonate/Glycine (Tums) 1,000 mg CHEWED TIDCC [facility] Last Admin: 07/18/17 09:05 Dose: 1,000 mg Carvedilol (Coreg) 3.125 mg PO BIDCC [facility] Last Admin: 07/18/17 09:06 Dose: 3.125 mg Cholestyramine Resin (Questran Light) 4 gm PO BID@0700,2000 [facility] Last Admin: 07/17/17 22:11 Dose: 4 gm Diphenoxylate HCl/Atropine (Lomotil) 1 tab PO Q4HP PRN PRN Reason: Diarrhea Last Admin: 07/18/17 09:05 Dose: 1 tab Docusate Sodium (Colace) 100 mg PO BID PRN PRN Reason: Constipation Furosemide (Lasix) 40 mg PO DAILY [facility] Last Admin: 07/18/17 09:07 Dose: 40 mg Heparin Sodium (Porcine) (Heparin) 5,000 unit SQ Q12 [facility] Last Admin: 07/18/17 09:06 Dose: 5,000 unit Piperacillin Sod/Tazobactam (Sod 2.25 gm/ Dextrose) 50 mls @ 100 mls/hr IV Q12H [facility] Last Admin: 07/18/17 09:05 Dose: 100 mls/hr Potassium Chloride 40 meq/ (Dextrose) 520 mls @ 130 mls/hr IV PRN PRN PRN Reason: hypokalemia Magnesium Sulfate 8.12 meq/ (Dextrose) 52 mls @ 104 mls/hr IV PRN PRN PRN Reason: Hypomagnesemia Potassium Chloride/Dextrose/Sod Cl (Dextrose 5%-1/2ns W/10meq Kcl) 1,000 mls @ 50 mls/hr IV .Q20H [facility] Last Admin: 07/17/17 15:35 Dose: 50 mls/hr Magnesium Hydroxide (Milk Of Magnesia) 30 ml PO DAILYP PRN PRN Reason: Constipation Naloxone HCl (Narcan) 0.1 mg IV Q2MIN PRN PRN Reason: Opiate Reversal Ondansetron HCl (Zofran) 4 mg IV Q4HP PRN PRN Reason: Nausea And Vomiting Last Admin: 07/16/17 20:39 Dose: 4 mg Sodium Chloride (Saline Flush) 10 ml IV Q8 [facility] Last Admin: 07/18/17 06:12 Dose: Not Given Vitamin D (Vitamin D3) 1,000 unit PO QDAY [facility] Last Admin: 07/18/17 09:05 Dose: 1,000 unit - ABG Interpretation ABG results: 07/12/17 23:15 ABG Methemoglobin 0.3 L VBG pH 7.23 L VBG pCO2 21.2 L VBG pO2 73 H VBG HCO3 8.7 L* VBG Total CO2 9.4 L* VBG O2 Saturation 86.4 H VBG Base Excess -17.0 L Medical - PN: A/P - Time Spent With Patient Total time spent is greater than 50% in coordination of care (as documented) at patient's floor/unit and/or counseling patient: 25 - 35 minutes (1) Metabolic acidosis Status: Acute Current Visit: Yes (2) Acute renal failure Problem details: Since she apparently does not have a secretory diarrhea I suspect the gastrin, VIP,chromogranin, etc will not be enlightening. Will follow the colon bx's with interest. ? microscopic colitis. Renal failure responding to current supportive measures. Status: Acute Current Visit: Yes (3) Rheumatoid arthritis Status: Chronic Current Visit: No (4) Memory difficulties Status: Chronic Current Visit: No - Narrative A/P Narrative: #1. Renal. Acute on chronic renal failure. There is presumably at least some degree of dehydration, likely due to current medications, and probable poor p.o. intake and chr diarrhea. -Renal function is improving, acidosis appears resolved.. IV fluids changed to normal saline. IV fluid rate was decreased to regarding apparent pulmonary vascular congestion. Creatinine is just a bit higher today. Oral intake remains extremely poor. Nephrology following. Consult appreciated. -Monitor labs, including calcium and phosphorus. 2. Recent fall. No injuries reported. 3. Hematologic/Infectious disease. Leukocytosis resolved. Blood cultures grew a gram-positive anaerobe. A second blood culture bottle is now growing 2 different organisms. I have contacted the lab and asked them to get us ID and sensitivities on both of these. -Patient does continue on Zosyn for now, given continued low-grade fevers and positive blood cultures. -Chronic anemia, likely due to chronic renal disease. 4. Cardiac. Reported history of coronary artery disease and CHF. -Patient did appear to develop volume overload, so was given IV Lasix. Oral Lasix was resumed as well. Decreased IV fluid rate. She is still not taking in oral fluids as well as we would help, so we will continue to encourage that as well. Resume Coreg as able. 5. CODE STATUS: Her chart indicates she has a DNR CODE STATUS. Nursing staff did contact her son/POA, and he further clarified that they would like full code except no intubation. 6. DVT prophylaxis: Sq heparin. 7. Neurologic. Patient has history of, as well as symptoms of, significant dementia. 8. Rheumatologic. History of rheumatoid arthritis, without current complaints of pain. 9. History of vitamin D deficiency. #10. GI. -Continues with persistent intermittent large volume watery diarrhea. Dr. Cadena feels that this may be consistent with an osmotic diarrhea. Colon biopsies were apparently negative for microscopic colitis, but duodenal biopsies do show some villi blunting. There is a possibility of gluten sensitivity. He did order a celiac panel. -I also wonder about the possible role of her ovarian mass, even though it has appeared stable on imaging. CEA and CA 125 are pending. Presently on lomotil, Monitor. Cholestyramine started. -Trial gluten-free, dairy free diet. Check thyroid studies. . Medical - PN: Qual - Stroke Symptom Onset Unknown: No - VTE Deep Vein Thrombosis/Pulmonary Embolism Present on Admission: No
[2017-07-18] MEDS: CHOLESTYRAMINE/ASPARTAME 4 GM POWD.PACK PO SCH ×2 (13:54→19:45)
[2017-07-18] MEDS: DEXTROSE 5%-1/2NS W/10MEQ KCL 1,000 ML IV SCH ×2 (13:57→16:40)
[2017-07-18] MEDS ORDERED: POTASSIUM CHLORIDE 40 MEQ in DEXTROSE 5% IN WATER 500 ML IV PRN (15:25)
[2017-07-18] MEDS ORDERED: MAGNESIUM HYDROXIDE 30 ML ORAL.SUSP PO PRN (15:25)
[2017-07-18] MEDS ORDERED: ACETAMINOPHEN 325 MG TABLET PO PRN (15:25)
[2017-07-18] MEDS ORDERED: HYDROcodone/APAP 5/325MG TABLET PO PRN (15:25)
[2017-07-18] MEDS ORDERED: DOCUSATE SODIUM 100 MG CAPSULE PO PRN (15:25)
[2017-07-18] MEDS ORDERED: DIPHENOXYLATE HCL/ATROPINE 1 TABLET PO PRN (15:25)
[2017-07-18] MEDS ORDERED: MAGNESIUM SULFATE 8.12 MEQ in DEXTROSE 5% IN WATER 50 ML IV PRN (15:25)
[2017-07-18] MEDS ORDERED: ONDANSETRON 4 MG/2 ML VIAL IV PRN (15:25)
[2017-07-18] MEDS ORDERED: NALOXONE HCL 0.4 MG/ML VIAL IV PRN (15:25)
[2017-07-18] MEDS ORDERED: MAGNESIUM SULFATE 8.12 MEQ/2 ML VIAL ONE (19:26)
[2017-07-19] MEDS: 0.9 % SODIUM CHLORIDE 10 ML SYRINGE IV SCH ×4 (01:07→20:35)
[2017-07-19] MEDS: CARVEDILOL 3.125 MG TABLET PO SCH ×2 (07:13→17:33)
[2017-07-19] MEDS: CHOLESTYRAMINE/ASPARTAME 4 GM POWD.PACK PO SCH ×2 (07:13→20:34)
[2017-07-19] MEDS: CALCIUM CARBONATE 500 MG TAB.CHEW CHEWED SCH ×3 (07:13→17:33)
[2017-07-19] MEDS: PIPERACILLIN SODIUM/TAZOBACTAM 2.25 GM in DEXTROSE 5% IN WATER 50 ML IV SCH (08:35)
[2017-07-19] MEDS: HEPARIN 5,000 UNIT/ML VIAL SQ SCH ×2 (08:35→20:46)
[2017-07-19] MEDS: FUROSEMIDE 40 MG TABLET PO SCH (08:36)
[2017-07-19] MEDS: ASPIRIN 81 MG TAB.CHEW PO SCH (08:36)
[2017-07-19] MEDS: VITAMIN D3 1,000 UNIT TABLET PO SCH (08:36)
--- NOTE | 2017-07-19 10:43 | Nephrology Progress Note ---
Subjective Patient information: Note initiated : 07/19/17 at 10:41 am Service Date, if different from initiated Date: [] Patient: Rabia Seals a 87 y/o F admitted on 07/12/17 for Weakness,Possible UTI ,Shaking/Acute Renal Failure. Chief Complaint: [] Principal diagnosis: Acute renal failure Interval history: Rabia denied dyspnea. She is receiving hypotonic IVF with potassium chloride. She is on renal diet. She denied diarrhea or dyspnea. SCr / renal function is stable around 4 mg/dl. Lasix has been restarted at 40 mg po daily Her son Fausto was present at bedside. According to her nurse, discharge to rehab is being planned Objective - Vital Signs Vital signs: Vital Signs Temp Pulse Pulse Resp BP BP BP 07/19/17 07:37 07/19/17 07:36 96 H 12 07/19/17 06:55 96.5 F L 20 138/85 07/19/17 03:40 98.3 F 73 20 108/56 07/18/17 23:14 96.5 F L 78 22 138/60 07/18/17 19:26 97.1 F 71 24 H 132/52 07/18/17 16:00 98.2 F 20 131/79 07/18/17 12:00 97.5 F 28 H 116/47 Pulse Ox 07/19/17 07:37 96 07/19/17 07:36 96 07/19/17 06:55 95 07/19/17 03:40 96 07/18/17 23:14 97 07/18/17 19:26 91 07/18/17 16:00 96 07/18/17 12:00 95 Intake and Output 07/18/17 07/19/17 07/19/17 21:59 05:59 13:59 Intake Total 692 / 692 200 / 200 Output Total 800 / 800 1150 / 1150 Balance -108 / -108 -950 / -950 Intake: IV 102 / 102 Magnesium Sulfate 8.12 52 / 52 Meq In Dextrose 5% in Water 50 ml @ 104 mls/hr IV PRN PRN Rx#:[id number] Zosyn 2.25 gm In Dextrose 50 / 50 5% in Water 50 ml @ 100 mls/hr IV Q12H [facility] Rx#: [id number] Oral 590 / 590 200 / 200 Output: Urine Catheter Amount 800 / 800 1150 / 1150 Other: Meal Dinner Percent of Meal Consumed 50% Feeding Ability Independent # of times incontinent of 3 1 1 Bowels Weight 190 lb Intake & Output: Intake & Output 07/18/17 07/19/17 07/19/17 21:59 05:59 13:59 Intake Total 692 / 692 200 / 200 Output Total 800 / 800 1150 / 1150 Balance -108 / -108 -950 / -950 Weight 190 lb Intake: IV 102 / 102 Magnesium Sulfate 8.12 52 / 52 Meq In Dextrose 5% in Water 50 ml @ 104 mls/hr IV PRN PRN Rx#:[id number] Zosyn 2.25 gm In Dextrose 50 / 50 5% in Water 50 ml @ 100 mls/hr IV Q12H [facility] Rx#: [id number] Oral 590 / 590 200 / 200 Output: Urine Catheter Amount 800 / 800 1150 / 1150 Other: Meal Dinner Percent of Meal Consumed 50% Feeding Ability Independent # of times incontinent of 3 1 1 Bowels - Lab 07/18/17 04:02 07/18/17 04:02 Most recent lab results Calcium 8.0 mg/dl (8.6-10.4) L 07/18/17 04:02 Phosphorus 2.9 mg/dL (2.7-4.5) 07/18/17 04:02 Magnesium 1.5 mg/dL (1.6-2.5) L 07/18/17 04:02 Assessment and Plan (1) Acute renal failure HOANG / ARF: non-oliguric, renal function improving, hypovolemia due to diarrhea vs ATN due to hypotension. Hypovolemia has been corrected. Stop IVF. Change to low sodium diet. Oral potassium supplement as needed. Baseline SCr was 1.3-1.5 several months ago. I would expect gradual improvement in SCr from present level of 3.9-4.0 mg/dl, new baseline GFR may be lower than prior. Agree with restarting Lasix 40 mg po daily. KASHMIR and Aldactone should not be restarted now. Follow up will be arranged at nephrology office 2-3 weeks from today. Please call with questions prn Status: Acute Comment: Since she apparently does not have a secretory diarrhea I suspect the gastrin, VIP,chromogranin, etc will not be enlightening. Will follow the colon bx's with interest. ? microscopic colitis. Renal failure responding to current supportive measures. Qualifiers: Acute renal failure type: unspecified Qualified Code(s): N17.9 - Acute kidney failure, unspecified
[2017-07-19] MEDS: DEXTROSE 5%-1/2NS W/10MEQ KCL 1,000 ML IV SCH (11:16)
[2017-07-19] MEDS ORDERED: POTASSIUM CHLORIDE 20 MEQ PACKET PO ONE (15:36)
[2017-07-19] MEDS ORDERED: LOPERAMIDE 2 MG CAPSULE PO ONE (15:37)
--- NOTE | 2017-07-19 16:01 | Internal Med Progress Note ---
Medical - PN: Subj Patient information: Note initiated : 07/19/17 at 3:58 pm Service Date, if different from initiated Date: [] Patient: Rabia Seals 87 y/o F admitted on 07/12/17 for Weakness,Possible UTI ,Shaking/Acute Renal Failure. Chief Complaint: [diarrhea] pt denies diarrhea but notes indicate intermittent watery stool and incontinence. Then again, stool submitted to recheck stool electrolytes was not processed in lab because it was solid (?). - Constitutional Vitals: Vital Signs Temp Pulse Resp BP Pulse Ox 96.6 F L 96 H 20 142/67 95 07/19/17 15:05 07/19/17 07:36 07/19/17 15:05 07/19/17 15:05 07/19/17 15:05 Period Temp Pulse Resp BP Sys/Marino Pulse Ox Last 24 Hr 96.5 F-98.3 F 71-96 12-24 108-142/52-85 91-97 Intake and Output 07/19/17 07/19/17 07/19/17 05:59 13:59 21:59 Intake Total 200 / 200 892 / 892 400 / 400 Output Total 1150 / 1150 1300 / 1300 Balance -950 / -950 892 / 892 -900 / -900 Intake & Output: Intake & Output 07/19/17 07/19/17 07/19/17 05:59 13:59 21:59 Intake Total 200 / 200 892 / 892 400 / 400 Output Total 1150 / 1150 1300 / 1300 Balance -950 / -950 892 / 892 -900 / -900 Intake: IV 892 / 892 Dextrose 5%-1/2Ns W/10Meq 892 / 892 KCl 1,000 ml @ 50 mls/hr IV .Q20H [facility] Rx#: [id number] Oral 200 / 200 400 / 400 Output: Urine Catheter Amount 1150 / 1150 1300 / 1300 Other: # of times incontinent of 1 1 Bowels General appearance: no acute distress - GI/Abdominal GI/Abdominal exam: Present: soft. Absent: guarding, tenderness Medical - PN: Obj Da - Labs CBC & Chem 7: 07/18/17 04:02 07/18/17 04:02 Labs: Abnormal Lab Results 07/18/17 07/18/17 07/17/17 04:02 04:02 04:00 RBC 3.03 L Hgb 9.0 L Hct 27.2 L Lymph % (Auto) 12.6 L Lymph # (Auto) 1.1 L BUN 42 H Creatinine 3.9 H Calcium 8.0 L Magnesium 1.5 L Lactate Dehydrogenase 275 H NT-Pro-B Natriuret Pep 38314.0 H Total Protein 5.2 L Albumin 2.6 L 07/17/17 07/17/17 04:00 04:00 RBC 3.06 L Hgb 9.1 L Hct 27.4 L Lymph % (Auto) 9.0 L Lymph # (Auto) 0.9 L BUN 52 H Creatinine 3.8 H Calcium 7.6 L Magnesium Lactate Dehydrogenase 289 H NT-Pro-B Natriuret Pep Total Protein 5.4 L Albumin 2.7 L Meds: Medications Acetaminophen (Tylenol) 650 mg PO Q6HP PRN PRN Reason: PAIN/FEVER > 101 Hydrocodone Bitart/Acetaminophen ([place] 5/325mg) 1 tab PO Q4-6HP PRN PRN Reason: Pain Aspirin (Aspirin) 81 mg PO DAILY [facility] Last Admin: 07/19/17 08:36 Dose: 81 mg Calcium Carbonate/Glycine (Tums) 1,000 mg CHEWED TIDCC [facility] Last Admin: 07/19/17 11:38 Dose: 1,000 mg Carvedilol (Coreg) 3.125 mg PO BIDCC [facility] Last Admin: 07/19/17 07:13 Dose: 3.125 mg Cholestyramine Resin (Questran Light) 4 gm PO BID@0700,2000 [facility] Last Admin: 07/19/17 07:13 Dose: 4 gm Diphenoxylate HCl/Atropine (Lomotil) 1 tab PO Q4HP PRN PRN Reason: Diarrhea Last Admin: 07/19/17 13:18 Dose: 1 tab Docusate Sodium (Colace) 100 mg PO BID PRN PRN Reason: Constipation Furosemide (Lasix) 40 mg PO DAILY [facility] Last Admin: 07/19/17 08:36 Dose: 40 mg Heparin Sodium (Porcine) (Heparin) 5,000 unit SQ Q12 [facility] Last Admin: 07/19/17 08:35 Dose: 5,000 unit Magnesium Sulfate 8.12 meq/ (Dextrose) 52 mls @ 104 mls/hr IV PRN PRN PRN Reason: Hypomagnesemia Last Infusion: 07/18/17 21:00 Dose: Infused Piperacillin Sod/Tazobactam (Sod 2.25 gm/ Dextrose) 50 mls @ 100 mls/hr IV Q12H [facility] Last Admin: 07/19/17 08:35 Dose: 100 mls/hr Magnesium Hydroxide (Milk Of Magnesia) 30 ml PO DAILYP PRN PRN Reason: Constipation Naloxone HCl (Narcan) 0.1 mg IV Q2MIN PRN PRN Reason: Opiate Reversal Ondansetron HCl (Zofran) 4 mg IV Q4HP PRN PRN Reason: Nausea And Vomiting Sodium Chloride (Saline Flush) 10 ml IV Q8 [facility] Last Admin: 07/19/17 15:36 Dose: 10 ml Vitamin D (Vitamin D3) 1,000 unit PO QDAY [facility] Last Admin: 07/19/17 08:36 Dose: 1,000 unit - ABG Interpretation ABG results: 07/12/17 23:15 ABG Methemoglobin 0.3 L VBG pH 7.23 L VBG pCO2 21.2 L VBG pO2 73 H VBG HCO3 8.7 L* VBG Total CO2 9.4 L* VBG O2 Saturation 86.4 H VBG Base Excess -17.0 L Medical - PN: A/P - Time Spent With Patient Total time spent is greater than 50% in coordination of care (as documented) at patient's floor/unit and/or counseling patient: (1) Acute renal failure Status: Acute Assessment and plan: Renal function improving but diarrhea continues. Based on duodenal bx's will check a celiac panel. Also will advise gluten free trial, and low lactose diet. Will repeat stool electrolytes on watery stool to recalculate stool osmolar gap. Would discontinue IV antibiotic (piperacillin). Will start cholestyramine at bid dosing. Current Visit: Yes - Narrative A/P Narrative: I will again order stool electrolytes. Please consider d/c of Pipercillin which was started empirically on admission. would also try imodium one capsule qac and qhs and increase cholestyramine to tid. Medical - PN: Qual - Stroke Symptom Onset Unknown: No - VTE Deep Vein Thrombosis/Pulmonary Embolism Present on Admission: No
--- NOTE | 2017-07-19 16:34 | Internal Med Progress Note ---
Medical - PN: Subj Patient information: Note initiated : 07/19/17 at 4:32 pm Service Date, if different from initiated Date: [] Patient: Rabia Seals 87 y/o F admitted on 07/12/17 for Weakness,Possible UTI ,Shaking/Acute Renal Failure. Chief Complaint: [] Interval history: July 12, 2017: History of present illness: Ms. Seals is a 87 year old with a history of dementia, congestive heart failure, mild chronic kidney disease. She reportedly lives at [facility] assisted [facility]. We have a history that she fell about 3 days ago as she was walking out of the bathroom. She states she landed on her behind, and really did not hurt herself. Her son apparently asked that she be transported to the ER today for evaluation, as he was told that she was getting weaker. The patient denies that she has been feeling weak. She says she really does not know why she was sent over. ER evaluation showed very severe acute on chronic kidney failure. She also was noted to have significant leukocytosis, and severely elevated anion gap. She is admitted for further evaluation and treatment of her renal failure. Otherwise, the patient is a very poor historian. She believes she has chronic diarrhea, but otherwise cannot recall any recent fevers or chills, headaches or dizziness, new eye or ear symptoms, sore throat or cough. She denies chest pain or palpitations, shortness of breath or wheezing, abdominal pain, nausea or vomiting, constipation, dysuria. However, she also cannot recall the year, and does not believe that she takes daily medications, although [facility] records indicate she takes numerous medications every day. July 13: The patient did fairly well overnight. She did drop her blood pressure a few times initially, requiring the institution of vasopressors, but responded very quickly to these. She has continued to deny significant symptoms, but staff noted that she was too weak for them to get her up this morning, even with the help with physical therapy. Otherwise, she denies fever or chills, headaches or dizziness, chest pain or shortness of breath, GI or symptoms. However, this afternoon, the patient did have 3 bouts of impressive watery diarrhea. July 14: This morning, the patient was feeling quite fatigued. She had a large amount of watery diarrhea last night, so a rectal tube was placed, but then it was removed as she apparently did not have any diarrhea by 8:00 this morning. However after receiving oral contrast for CT scan, she again developed profuse watery diarrhea. Potassium level was quite low this morning, and was replaced IV. Blood cultures are growing a gram-positive nader today. The patient continues to be awake and alert. She is too weak to stand up on her own, and requires significant assistance, but still insists that she is fine. She denies fever chills, headaches or dizziness, chest pain or shortness of breath, abdominal pain, nausea or vomiting. She believes her diarrhea is chronic. She denies dysuria. July 15: Patient seen examined, sitting comfortably in bed, denies any acute issues, admits some weakness. The patient had EGD/ Colonoscopy done yesterday which was negative. She thinks her diarrhea is getting better. Stool studies sent by GI, Appears that she has secretory type of diarrhea. Await Colonic biopsies. Patients creat is trending down, at 5.7 today. The patient Blood culture isolation and sensitivity is still pending, remains on zosyn. Educated to increase fluid intake orally. July 16: Today, the patient continues to say that she feels fine. However, nursing staff notes that she continues to have intermittent watery diarrhea, with fecal incontinence. The patient cannot really recall these episodes. She denies fever chills, chest pain or shortness of breath, GI or complaints, but her history is clearly unreliable. GI has suggested that perhaps we try the patient on a gluten-free, dairy free diet, as she did have some Hagan shortening on her bowel biopsies. July 17. -Today, the patient had 1 mucus type stool, and then 1 very loose watery stool. -During the night, she developed increasing lung crackles, and decreased O2 saturation. She was given IV Lasix, and seemed to improve. Subsequent BNP level was quite elevated. She does have a history of CHF, but we have been holding most of her medications. -Renal function continues to improve, with declining BUN and creatinine. -Patient continues with fairly poor oral intake, so still requires some IV hydration. She will be changed to a gluten-free diet today. We still have no definite cause for her persistent diarrhea. July 18: Today, the patient continues to say that she feels fine. She continues to have bouts of watery diarrhea. Appetite continues to be poor. She has significant memory loss, and is quite insistent that she does not have fever or chills, chest pain or shortness of breath, abdominal pain, nausea or vomiting or diarrhea, or dysuria. Per nursing staff, she remains incontinent. July 19: Patient seen examined, still has soft semi liquid bm, 3 today, patient is able to tolerate po but it seems it s not adequate 50% of meal intake today. Appreciated nephrology input and GI input, Plan to stop IVF and see how the patient does. GI plans to repeat stool studies and start cholestyramine. Celiac and lactose free diet for now. Patient denies any acute complaints. Pertinent ROS: Denies headache, dizziness Denies chest pain, palpitations Denies cough or shortness of breath Denies abdominal pain, nausea or vomiting. - Constitutional Vitals: Vital Signs Temp Pulse Resp BP Pulse Ox 96.6 F L 96 H 20 142/67 95 07/19/17 15:05 07/19/17 07:36 07/19/17 15:05 07/19/17 15:05 07/19/17 15:05 Period Temp Pulse Resp BP Sys/Marino Pulse Ox Last 24 Hr 96.5 F-98.3 F 71-96 12-24 108-142/52-85 91-97 Intake and Output 07/19/17 07/19/17 07/19/17 05:59 13:59 21:59 Intake Total 200 / 200 942 / 942 400 / 400 Output Total 1150 / 1150 1300 / 1300 Balance -950 / -950 942 / 942 -900 / -900 Intake & Output: Intake & Output 07/19/17 07/19/17 07/19/17 05:59 13:59 21:59 Intake Total 200 / 200 942 / 942 400 / 400 Output Total 1150 / 1150 1300 / 1300 Balance -950 / -950 942 / 942 -900 / -900 Intake: IV 942 / 942 Dextrose 5%-1/2Ns W/10Meq 892 / 892 KCl 1,000 ml @ 50 mls/hr IV .Q20H KLAUDIA Rx#: [id number] Zosyn 2.25 gm In Dextrose 50 / 50 5% in Water 50 ml @ 100 mls/hr IV Q12H KLAUDIA Rx#: [id number] Oral 200 / 200 400 / 400 Output: Urine Catheter Amount 1150 / 1150 1300 / 1300 Other: # of times incontinent of 1 1 Bowels Exam: Constitutional; Afebrile, cooperative, alert, not in distress. Eyes- No icterus, , No periorbital swelling Ears- Ext ear normal, hearing normal to conversation. Neck- Midline trachea, supple Respiratory system: Air Entry equal on both sides, No crackles or wheezing, no rhonchi. CVS- Rate rhythm regular, S1,S2 heard, no gallop, no rub. Abdomen- Soft nontender abdomen, no organomegaly, no tenderness, no guarding or rigidity, [employer]- AOOx2, moving all extremities, no gross focal deficit noted. Medical - PN: Obj Da - Labs CBC & Chem 7: 07/18/17 04:02 07/18/17 04:02 Labs: Abnormal Lab Results 07/18/17 07/18/17 07/17/17 04:02 04:02 04:00 RBC 3.03 L Hgb 9.0 L Hct 27.2 L Lymph % (Auto) 12.6 L Lymph # (Auto) 1.1 L BUN 42 H Creatinine 3.9 H Calcium 8.0 L Magnesium 1.5 L Lactate Dehydrogenase 275 H NT-Pro-B Natriuret Pep 01580.0 H Total Protein 5.2 L Albumin 2.6 L 07/17/17 07/17/17 04:00 04:00 RBC 3.06 L Hgb 9.1 L Hct 27.4 L Lymph % (Auto) 9.0 L Lymph # (Auto) 0.9 L BUN 52 H Creatinine 3.8 H Calcium 7.6 L Magnesium Lactate Dehydrogenase 289 H NT-Pro-B Natriuret Pep Total Protein 5.4 L Albumin 2.7 L Meds: Medications Acetaminophen (Tylenol) 650 mg PO Q6HP PRN PRN Reason: PAIN/FEVER > 101 Hydrocodone Bitart/Acetaminophen ([place] 5/325mg) 1 tab PO Q4-6HP PRN PRN Reason: Pain Aspirin (Aspirin) 81 mg PO DAILY [facility] Last Admin: 07/19/17 08:36 Dose: 81 mg Calcium Carbonate/Glycine (Tums) 1,000 mg CHEWED TIDCC [facility] Last Admin: 07/19/17 11:38 Dose: 1,000 mg Carvedilol (Coreg) 3.125 mg PO BIDCC [facility] Last Admin: 07/19/17 07:13 Dose: 3.125 mg Cholestyramine Resin (Questran Light) 4 gm PO BID@0700,2000 [facility] Last Admin: 07/19/17 07:13 Dose: 4 gm Diphenoxylate HCl/Atropine (Lomotil) 1 tab PO Q4HP PRN PRN Reason: Diarrhea Last Admin: 07/19/17 13:18 Dose: 1 tab Docusate Sodium (Colace) 100 mg PO BID PRN PRN Reason: Constipation Furosemide (Lasix) 40 mg PO DAILY [facility] Last Admin: 07/19/17 08:36 Dose: 40 mg Heparin Sodium (Porcine) (Heparin) 5,000 unit SQ Q12 [facility] Last Admin: 07/19/17 08:35 Dose: 5,000 unit Magnesium Sulfate 8.12 meq/ (Dextrose) 52 mls @ 104 mls/hr IV PRN PRN PRN Reason: Hypomagnesemia Last Infusion: 07/18/17 21:00 Dose: Infused Magnesium Hydroxide (Milk Of Magnesia) 30 ml PO DAILYP PRN PRN Reason: Constipation Naloxone HCl (Narcan) 0.1 mg IV Q2MIN PRN PRN Reason: Opiate Reversal Ondansetron HCl (Zofran) 4 mg IV Q4HP PRN PRN Reason: Nausea And Vomiting Sodium Chloride (Saline Flush) 10 ml IV Q8 [facility] Last Admin: 07/19/17 15:36 Dose: 10 ml Vitamin D (Vitamin D3) 1,000 unit PO QDAY [facility] Last Admin: 07/19/17 08:36 Dose: 1,000 unit - ABG Interpretation ABG results: 07/12/17 23:15 ABG Methemoglobin 0.3 L VBG pH 7.23 L VBG pCO2 21.2 L VBG pO2 73 H VBG HCO3 8.7 L* VBG Total CO2 9.4 L* VBG O2 Saturation 86.4 H VBG Base Excess -17.0 L Medical - PN: A/P - Time Spent With Patient Total time spent is greater than 50% in coordination of care (as documented) at patient's floor/unit and/or counseling patient: (1) Diarrhea Status: Acute Current Visit: Yes (2) Acute renal failure Status: Acute Current Visit: Yes (3) Anemia Status: Chronic Current Visit: No (4) Chronic kidney disease Status: Chronic Current Visit: No - Narrative A/P Narrative: #1. Renal. Acute on chronic renal failure. There is presumably at least some degree of dehydration, likely due to current medications, and probable poor p.o. intake and chr diarrhea. -Renal function is improving, acidosis appears resolved.. IV stopped now, Creat is 3.9, stable, Nephrology following. Consult appreciated. -Patient seems now to be volume overloaded, and Lasix has been resumed.Nephrology in agreement with same 2. Recent fall. No injuries reported. 3. Hematologic/Infectious disease. Leukocytosis resolved. Blood cultures grew a gram-positive anaerobe. A second blood culture bottle is now growing 2 different organisms. I have contacted the lab and asked them to get us ID and sensitivities on both of these. These likely are to be contaminants, will repeat Blood culture today and discontinue zosyn.( GI also recommended same) -Chronic anemia, likely due to chronic renal disease. 4. Cardiac. Reported history of coronary artery disease and CHF. -Patient did appear to develop volume overload and IV lasix was given. She has resumed Oral Lasix.IVF stopped . Encourage and monitor oral intake. Resume Coreg as able. 5. CODE STATUS: Her chart indicates she has a DNR CODE STATUS. Nursing staff did contact her son/POA, and he further clarified that they would like full code except no intubation. 6. DVT prophylaxis: Sq heparin. 7. Neurologic. Patient has history of, as well as symptoms of, significant dementia. 8. Rheumatologic. History of rheumatoid arthritis, without current complaints of pain. 9. History of vitamin D deficiency. #10. GI. -Continues with persistent intermittent large volume watery diarrhea. Dr. Cadena feels that this may be consistent with an osmotic diarrhea. Colon biopsies were apparently negative for microscopic colitis, but duodenal biopsies do show some villi blunting. There is a possibility of gluten sensitivity. He did order a celiac panel. -I also wonder about the possible role of her ovarian mass, even though it has appeared stable on imaging. Tumor markers are negative. start on loperamide 2mg once. Consider using scheduled loperamide if cholestyramine does not work. Monitor. Cholestyramine started. -Trial gluten-free, dairy free diet. . Medical - PN: Qual - Stroke Symptom Onset Unknown: No - VTE Deep Vein Thrombosis/Pulmonary Embolism Present on Admission: No
[2017-07-19 17:17] LABS: Blood Urea Nitrogen 33
[2017-07-19 17:18] LABS: Ionized Calcium 1.12
[2017-07-19 17:19] LABS: Free T4 (Free Thyroxine) 1.34; Magnesium 1.8
[2017-07-20] MEDS: 0.9 % SODIUM CHLORIDE 10 ML SYRINGE IV SCH (06:57)
[2017-07-20] MEDS: CHOLESTYRAMINE/ASPARTAME 4 GM POWD.PACK PO SCH (06:57)
[2017-07-20 08:18] LABS: Blood Urea Nitrogen 26 mg/dl (8-23)
[2017-07-20] MEDS: HEPARIN 5,000 UNIT/ML VIAL SQ SCH (08:30)
[2017-07-20] MEDS: CALCIUM CARBONATE 500 MG TAB.CHEW CHEWED SCH (08:31)
[2017-07-20] MEDS: CARVEDILOL 3.125 MG TABLET PO SCH (08:31)
[2017-07-20] MEDS: ASPIRIN 81 MG TAB.CHEW PO SCH (08:31)
[2017-07-20] MEDS: VITAMIN D3 1,000 UNIT TABLET PO SCH (08:31)
[2017-07-20] MEDS: FUROSEMIDE 40 MG TABLET PO SCH (08:31)
[2017-07-20] MEDS ORDERED: LOPERAMIDE 2 MG CAPSULE PO SCH (09:00)
--- NOTE | 2017-07-20 09:49 | Discharge Summary ---
Medical - DS: Prov Patient information: Note initiated : 07/20/17 at 9:38 am Patient: Rabia Seals 87 y/o F admitted on 07/12/17 for Weakness,Possible UTI ,Shaking/Acute Renal Failure. Date of admission: 07/12/17 17:40 Discharge date: 07/20/17 Primary care physician: Radha Ho phone number [phone] Admitting clinician: Radha Mckeon Consults: 07/14/17 20:16 Consult to Physician [CONS] Routine Comment: Consulting Provider: Vincenzo Knott Reason For Exam: Physician to Consult Attending physician on discharge: Radha Mckeon Medical - DS: Meds - Discharge Medications Prescriptions: Carvedilol [Coreg] 6.25 mg PO BIDCC #1 tablet HYDROcodone/APAP 5/325MG [[place] 5/325Mg] 0.5 - 1 tab PO Q4-6HP PRN #20 PRN Reason: Pain Loperamide [Imodium] 2 mg PO Q6H PRN #30 capsule PRN Reason: Diarrhea Ondansetron HCl [Zofran ODT] 4 mg SL Q4-6HP PRN #1 tablet PRN Reason: Nausea And Vomiting Active and Home Medications: Discharge medications: Tylenol 650 mg every 6 hours as needed Imodium 2 mg p.o. 4 times daily as needed Tums 1000 mg 3 times daily with meals Coreg increased to 6.25 mg p.o. twice daily Questran 4 g p.o. 3 times daily with meals Lasix 40 mg p.o. daily Heparin 5000 units subcu every 12 hours Hydrocodone/APAP 5/325 1 p.o. every 4 hours as needed Zofran sublingual 4 mg every 4 hours as needed Vitamin D 1000 units p.o. daily Lisinopril and spironolactone were discontinued, regarding acute renal failure. Previous home Medications: Carvedilol [Coreg] 25 mg PO BID 04/17/16 [History Confirmed 07/12/17 Last Taken 07/12/17 08:00] Furosemide [Lasix] 40 mg PO DAILY 04/17/16 [History Confirmed 07/12/17 Last Taken 07/12/17 08:00] HYDROcodone/APAP 5/325MG [[place] 5/325Mg] 0.5 - 1 tab PO Q4-6HP PRN 04/17/16 [ History Confirmed 07/12/17 Last Taken Unknown] Lisinopril [Zestril] 10 mg PO DAILY 04/17/16 [History Confirmed 07/12/17 Last Taken 07/12/17 08:00] Spironolactone [Aldactone] 25 mg PO BID 04/17/16 [History Confirmed 07/12/17 Last Taken 07/12/17 08:00] cholecalciferol (vitamin D3) 1,000 unit tablet 1,000 unit PO QDAY 90 Days [History Confirmed 07/12/17 Last Taken 07/12/17 08:00] aspirin 81 mg tablet,delayed release 81 mg PO DAILY #90 tab 09/14/16 [Rx Confirmed 07/12/17 Last Taken 07/12/17 08:00] Medical - DS: Hosp Hospital course: Mr. Seals is a 87 year old F July 12, 2017: History of present illness: Ms. Seals is a 87 year old with a history of dementia, congestive heart failure, mild chronic kidney disease. She reportedly lives at [facility]. We have a history that she fell about 3 days ago as she was walking out of the bathroom. She states she landed on her behind, and really did not hurt herself. Her son apparently asked that she be transported to the ER today for evaluation, as he was told that she was getting weaker. The patient denies that she has been feeling weak. She says she really does not know why she was sent over. ER evaluation showed very severe acute on chronic kidney failure. She also was noted to have significant leukocytosis, and severely elevated anion gap. She is admitted for further evaluation and treatment of her renal failure. Otherwise, the patient is a very poor historian. She believes she has chronic diarrhea, but otherwise cannot recall any recent fevers or chills, headaches or dizziness, new eye or ear symptoms, sore throat or cough. She denies chest pain or palpitations, shortness of breath or wheezing, abdominal pain, nausea or vomiting, constipation, dysuria. However, she also cannot recall the year, and does not believe that she takes daily medications, although [facility] indicate she takes numerous medications every day. July 13: The patient did fairly well overnight. She did drop her blood pressure a few times initially, requiring the institution of vasopressors, but responded very quickly to these. She has continued to deny significant symptoms, but staff noted that she was too weak for them to get her up this morning, even with the help with physical therapy. Otherwise, she denies fever or chills, headaches or dizziness, chest pain or shortness of breath, GI or symptoms. However, this afternoon, the patient did have 3 bouts of impressive watery diarrhea. ... July 20, 2017: Hospital course: -The patient presented with acute renal failure, which is quite severe. It appeared this was due to a combination of very poor oral intake, ongoing profuse diarrhea, and ongoing diuretic therapy for heart failure. She was given IV fluids for more than a week, and today creatinine is approaching her baseline. She had extremely poor oral intake at admission, this is gradually improving, but she needs lots of encouragement and reminders, as she is extremely forgetful. She should plan on following up with nephrology, Dr. Garza or Dr. Mccormick, in 1-2 weeks. She was initially treated both with IV fluids and with vasopressors, regarding hypotension. Also IV potassium and magnesium replacement. -Persistent diarrhea of uncertain cause. She was evaluated by GI, Dr. Cadena. She was worked up for various things, and none of the tests have actually proven a cause. She did have duodenal biopsies, and there was some suggestion of villi blunting, so the patient is now on a gluten and dairy free diet. Biopsies did not show collagenous colitis. Stool cultures were negative. At this time she seems to be only having 1 or 2 stools a day, mostly formed. He is receiving cholestyramine with meals, and Imodium as needed, and Tums with meals. Lomotil can also be added on a as needed basis. -She has had intermittent low-grade fevers during her stay here. Blood cultures grew a gram-positive cocci, identified as Propionibacterium, which is thought to be a contaminant. She was treated with IV Zosyn empirically, but this is been discontinued. -After very large volume IV fluid resuscitation, she eventually developed crackles in her lungs and declining O2 sats. She was diagnosed with CHF exacerbation, and given IV Lasix. She is now taking her oral Lasix again. Coreg was also added back at a lower dose, and this can be increased to 6.25 mg twice daily at this time. Weights have varied from 164 pounds to as high as 195 pounds, with last weight at 187 pounds this is probably closer to her baseline. Today, patient's vital signs are stable, and labs are improved. She is extremely forgetful, so her history really is not reliable. She continues to deny fever chills, chest pain or shortness of breath, abdominal pain, nausea or vomiting, diarrhea or constipation or dysuria. She continues to be quite weak, but will walk with physical therapy with a lot of encouragement and assistance. She is certainly too weak to return home, so will go to rehab today Exam: Temperature 98.4, heart rate 63, respiratory rate 20-24, blood pressure 130/68, O2 saturation 96% on 2 L. She is sitting up in a chair, wrapped in blankets. She continues to complain of feeling cold. Neck shows no obvious JVD. Cardiac exam shows regular rate and rhythm. Lungs are clear to auscultation, without obvious rales, rhonchi, wheezes. She may be a bit decreased at the bases. Abdomen is soft and nontender with active bowel sounds. Extremities show trace edema. Neurologic exam: Patient remains extremely forgetful, but otherwise exam is nonfocal. Assessment and plan: #1. Renal. Acute on chronic renal failure. There was presumably at least some degree of dehydration, likely due to current medications, and probable poor p.o. intake and chronic diarrhea. -Renal function is improving, acidosis appears resolved.. IV fluids were discontinued. -Continue to remind her and encourage good p.o. fluid intake. -Follow-up with Dr. Mccormick or Dr. Garza at nephrology clinic in 1-2 weeks. -Recheck labs in 2 days. 2. Recent fall. No injuries reported. Patient continues to be quite weak. She will need ongoing physical and occupational therapies. 3. Hematologic/Infectious disease. Leukocytosis resolved. Blood cultures grew a gram-positive anaerobe. A second blood culture bottle is now growing 2 different organisms. The lap tells me that these are considered contaminants. Zosyn was discontinued yesterday. The patient remains afebrile. -Chronic anemia, likely due to chronic renal disease. 4. Cardiac. Reported history of coronary artery disease and CHF. -Patient did appear to develop volume overload, so was given IV Lasix. Oral Lasix was resumed as well. -Coreg was increased today from 3.125- 6.25 mg twice daily. Monitor blood pressures. 5. CODE STATUS: Her chart indicates she has a DNR CODE STATUS. Nursing staff did contact her son/POA, and he further clarified that they would like full code except no intubation. 6. DVT prophylaxis: Sq heparin. 7. Neurologic. Patient has history of, as well as symptoms of, significant dementia. 8. Rheumatologic. History of rheumatoid arthritis, without current complaints of pain. 9. History of vitamin D deficiency. #10. GI. -Patient did undergo upper and lower endoscopies with Dr. Cadena, which were unrevealing. -Diarrhea has improved. She is currently receiving cholestyramine and Tums, plus as needed Imodium. -Etiology of her diarrhea was never clearly confirmed. She should remain on a gluten-free, dairy free diet for now. -Celiac panel is still pending. -I also wondered about the possible role of her ovarian mass, even though it has appeared stable on imaging. CEA and CA 125 are reported as normal. -Thyroid studies were normal. Discharge diagnosis: Renal failure due to hypovolemia. Severe diarrhea, uncertain cause. Weakn - Time Spent with Patient Total time spent providing and/or coordinating discharge services: Medical - DS: Exam - Constitutional Vitals: Vital Signs Temp Pulse Resp BP BP Pulse Ox 07/20/17 07:02 96.9 F L 73 18 132/66 95 07/20/17 03:58 98.2 F 79 22 134/62 95 07/20/17 00:00 98.1 F 68 22 136/64 95 07/19/17 21:42 96 07/19/17 21:41 96 07/19/17 19:28 98.4 F 71 24 H 130/68 96 07/19/17 15:05 96.6 F L 20 142/67 95 07/19/17 11:54 96.9 F L 20 126/81 94 Intake and Output 07/19/17 07/20/17 07/20/17 21:59 05:59 13:59 Intake Total 400 / 400 300 / 300 240 / 240 Output Total 1700 / 1700 50 / 50 200 / 200 Balance -1300 / -1300 250 / 250 40 / 40 Intake: Oral 400 / 400 300 / 300 240 / 240 Output: Urine Catheter Amount 1700 / 1700 Void Amount 50 / 50 200 / 200 Other: Meal Breakfast Percent of Meal Consumed 25% Feeding Ability Assist with Tray Set Up # Voids 1 1 # Bowel Movements 1 # of times incontinent of 1 Bowels Weight 187 lb 8 oz Medical - DS: Data Labs on day of discharge: Labs from last 24 hours 07/20/17 07/19/17 07:12 04:00 Sodium 139 138 Potassium 4.1 3.8 Chloride 102 101 Carbon Dioxide 21 L 26 Anion Gap 16.0 11.0 BUN 26 H 33 Creatinine 2.8 H 3.2 GFR Calculation 15 12 Glucose 99 97 Calcium 8.5 L Ionized Calcium Holden 1.12 Magnesium 1.8 TSH 2.73 Free T4 1.34 July 18: CBC: White blood cell count 8700, hemoglobin 9, hematocrit 27, platelets 225, 000. CA 125 and CEA were within normal limits. July 17: 2 bottles blood cultures are now growing bacteria. The second bottle is growing both propionibacterium granulosum, and a second gram-positive coccobacillus. Consider to be contaminants. Chest x-ray: Shows pulmonary vascular congestion. Moderate left and small right basilar infiltrate versus atelectasis is also noted. Suspect aspiration. Stool sodium and potassium are pending. Celiac disease panel is pending. July 14: Stool for Hemoccult was positive today. C. difficile screen is negative. Blood culture is growing Propionibacterium granulosum, thought to be a contaminant. Abdominal CT with oral contrast, but without IV contrast: Shows cholelithiasis, small amount of pelvic ascites, stable 5 cm right ovarian tumor and 5 cm simple cyst of the left ovary, sigmoid diverticulosis, small bilateral pleural effusions, moderate L2 compression fracture. July 13: ABG: PH 7.49, PCO2 25, PO2 85, bicarb 19, O2 saturation 99% Renal ultrasound: Shows normal-appearing kidneys and bladder. Gallstones are noted within the gallbladder without evidence of cholecystitis. Chest x-ray: Shows mild cardiomegaly. Upper lobe pulmonary vessels slightly distended, consistent with possible mild CHF. July 12: Troponin is borderline at 0.04 ProBNP is elevated at 1797 CBC: White blood cell count 16,000, him hemoglobin 11.5, hematocrit 33, platelets 246,000. Granulocyte count elevated at 14,000. Lactic acid normal at 1.0 Anion gap is elevated at 24. Ionized calcium is low at 1.01 Chest x-ray: Stable cardiomegaly. No infiltrates. Medical - DS: A/P - Patient/Caregiver Discharge Instructions Activity: as per physical therapy Diet: Lactose Free, Gluten Free Prescriptions: Carvedilol [Coreg] 6.25 mg PO BIDCC #1 tablet HYDROcodone/APAP 5/325MG [[place] 5/325Mg] 0.5 - 1 tab PO Q4-6HP PRN #20 PRN Reason: Pain Loperamide [Imodium] 2 mg PO Q6H PRN #30 capsule PRN Reason: Diarrhea Ondansetron HCl [Zofran ODT] 4 mg SL Q4-6HP PRN #1 tablet PRN Reason: Nausea And Vomiting Other Amb Orders: Aspiration Precautions Location: Determined By Patient Fall Risk Location: Determined By Patient OT Discharge Order Location: Determined By Patient OT Discharge Order Location: Determined By Patient Physical Therapy at Discharge - General Location: Determined By Patient Physical Therapy at Discharge - General Location: Determined By Patient Basic Metabolic Panel Time Frame: 2 Days, Location: Determined By Patient Complete Blood Count Time Frame: 2 Days, Location: Determined By Patient - Problem Maintenance (1) Metabolic acidosis Status: Acute (2) Acute renal failure Status: Acute Comment: Since she apparently does not have a secretory diarrhea I suspect the gastrin, VIP,chromogranin, etc will not be enlightening. Will follow the colon bx's with interest. ? microscopic colitis. Renal failure responding to current supportive measures. Qualifiers: Acute renal failure type: unspecified Qualified Code(s): N17.9 - Acute kidney failure, unspecified (3) Rheumatoid arthritis Status: Chronic (4) Memory difficulties Status: Chronic - Follow up Plan Follow up with: Krysten Romero DNP, [employer] [Primary Care Provider] - (Please call to set up a hospital follow-up in 7-10 days.) Disposition: [facility] Prognosis: Fair Rehab Potential: Fair Overall status at discharge: patient is progressing back to baseline Medical - DS: Qual - VTE Deep Vein Thrombosis/Pulmonary Embolism Present on Admission: No
[2017-07-20] MEDS ORDERED: CHOLESTYRAMINE/ASPARTAME 4 GM POWD.PACK PO SCH (11:30)
[2017-07-21 12:02] LABS: Gastrin 19 pg/mL (< OR = 100)
[2017-07-23 10:05] LABS: Vasoactive Intest. Polypeptide < 50 pg/mL (<75)
== END 2017-07-20 10:35 | DRG 683 ==
LOC: ED 14:13 → ICU 17:42 → MEDSUR 07-18 14:36
PROVIDERS: ADMIT Internal Medicine; ATTEND Internal Medicine
PROC: COLONBX (2017-07-14 20:40)

== ENCOUNTER 2017-12-06 10:54 | Inpatient (IN) ==
--- NOTE | 2017-12-06 11:36 | Emergency Department Note ---
Lower Extremity Injury HPI - General Chief Complaint: Extremity Injury, Lower Stated Complaint: Sent by Dr Bey for eval of L calf Time Seen by Provider: 12/06/17 11:03 Source: RN notes reviewed Mode of arrival: wheelchair - History of Present Illness HPI Narrative: 87-year-old female presents with bilateral cellulitis to the lower extremities. Unknown onset but she has been seen at wound care and was sent over by wound care. Patient is confused and has no idea why she is here. According to [facility] where she lives, this is her baseline. The patient denies any complaints. Denies nausea, vomiting, or diarrhea. Denies fever or chills. Denies any pain. According to wound care the cellulitis is getting worse in the left leg and calf area has significant increase in edema over the last couple of days. [facility] does report that she sits in a chair with her legs dependent very frequently and refuses to get in bed to sleep. Patient denies numbness or tingling. - Related Data Home Medications Medication Instructions Recorded Confirmed Furosemide [Lasix] 40 mg PO HS 04/17/16 12/06/17 cholecalciferol (vitamin D3) 1,000 1,000 unit PO QDAY 90 Days #90 tab 08/10/16 12/06/17 unit tablet FLUoxetine HCL [PROzac] 20 mg PO DAILY 12/06/17 12/06/17 Furosemide [Lasix] 60 mg PO DAILY 12/06/17 12/06/17 Previous Rx's Medication Instructions Recorded aspirin 81 mg tablet,delayed 81 mg PO DAILY #90 tab 09/14/16 release Acetaminophen [Tylenol] 650 mg PO Q6HP PRN tab 07/20/17 Calcium Carbonate [Tums] 1,000 mg CHEWED TIDCC 07/20/17 Carvedilol [Coreg] 6.25 mg PO BIDCC #1 tab 07/20/17 HYDROcodone/APAP 5/325MG [[place] 0.5 - 1 tab PO Q4-6HP PRN #20 07/20/17 5-325Mg] Loperamide [Imodium] 2 mg PO Q6H PRN #30 cap 07/20/17 Magnesium Hydroxide [Milk of 30 ml PO DAILYP PRN 07/20/17 Magnesia] Ondansetron HCl [Zofran ODT] 4 mg SL Q4-6HP PRN #1 tab 07/20/17 potassium chloride ER 10 mEq 10 meq PO BID #30 tab 08/26/17 tablet,extended release Allergies Allergy/AdvReac Type Severity Reaction Status Date / Time No Known Drug Allergies Allergy Verified 12/06/17 11:02 Review of Systems All systems ED: reviewed and negative except as stated. Past Medical History - Past Medical History Source: old records reviewed, other (All information received from old records as patient is extremely poor historian and confused, which is her baseline) Medical history: Reports: arthritis, CHF, coronary artery disease, GERD, hyperlipidemia, hypertension, renal disease Psychiatric history: Reports: anxiety Surgical history ED: Reports: angioplasty/stent, other (history of coronary artery disease, venous stasis wound care) - Social History smoking status: Never smoker Alcohol use: Reports: None Drug use: Reports: none Physical Exam Limitations: altered mental status (Confused, baseline) General appearance: alert, in no apparent distress Head: atraumatic, normocephalic, normal inspection Eye: Present: normal appearance. Absent: conjunctival injection ENT: normal oropharynx, mucous membranes moist, TM's normal bilaterally, normal external ear exam Neck: Present: normal inspection, trachea midline. Absent: tenderness, lymphadenopathy Chest: Present: normal inspection, symmetric chest wall rise Respiratory: Present: normal lung sounds bilaterally, other (Lung sounds slightly diminished at bases bilaterally otherwise clear throughout). Absent: respiratory distress, wheezes, accessory muscle use Cardiovascular: Present: regular rate, normal heart sounds Extremities: Absent: normal inspection (The left lower extremity does have a 8 cm area of redness by 6 cm area that has been marked by wound care. No tenderness. 1+ edema to the right lower extremity. The reddened area is warm to touch. The left lower extremity has diffuse 2+ pitting edema from the knee down throughout the ankle. It is also bright red, warm, weeping clearish fluid. There is mild tenderness to the posterior left calf.) Neurological: Absent: alert (Confused, no idea why she is here, not oriented to person, place, time, or situation. This is her baseline) Psychiatric: Present: normal affect, normal mood Skin: Present: warm, dry, intact, erythema (Please see extremity assessment) Course Vital Signs Temperature 97.4 F 12/06/17 10:55 Pulse Rate 82 12/06/17 10:55 Respiratory Rate 16 12/06/17 10:55 Blood Pressure 117/74 12/06/17 10:55 Pulse Oximetry (%) 98 12/06/17 10:55 Temperature 97.6 F 12/07/17 19:34 Pulse Rate 68 12/07/17 19:34 Respiratory Rate 18 12/07/17 19:34 Blood Pressure 104/48 12/07/17 19:34 Pulse Oximetry (%) 96 12/07/17 19:34 Extremity Injury, Lower - Lab Data Result diagrams: 12/06/17 11:25 12/07/17 05:03 Lab Results 12/06/17 12/06/17 12/06/17 Range/Units 11:25 11:25 11:25 WBC 11.1 H (4.5-11.0) K/mcL RBC 4.19 (4.00-5.20) M/mcL Hgb 10.3 L (12.0-15.0) g/dL Hct 31.3 L (36.0-48.0) % MCV 74.8 L (80.0-100.0) fL MCH 24.6 L (26.0-34.0) pg MCHC 32.9 (31.0-36.0) g/dL RDW 15.9 H (11.5-14.5) % Plt Count 550 H (140-440) K/mcL MPV 6.8 L (7.4-10.4) fL Gran % 78.7 H (38.0-78.0) % Lymph % (Auto) 8.8 L (15.5-49.0) % Latimer % (Auto) 8.4 (1.0-12.0) % Eos % (Auto) 3.6 (0.0-7.0) % Baso % (Auto) 0.5 (0.0-2.0) % Gran # 8.7 H (1.8-8.0) K/mcL Lymph # (Auto) 1.0 L (1.5-4.8) K/mcL [place]imer # (Auto) 0.9 (0.1-0.9) K/mcL Eos # (Auto) 0.4 (0.0-0.7) K/mcL Baso # (Auto) 0.1 (0.0-0.3) K/mcL VBG Lactic Acid 2.0 (0.5-2.2) mmol/L Sodium 128 L (133-145) mmol/L Potassium 4.0 (3.3-5.1) mmol/L Chloride 90 L (96-108) mmol/L Carbon Dioxide 25 (22-30) mmol/L Anion Gap 13.0 (8-16) BUN 25 H (8-23) mg/dl Creatinine 1.4 H (0.6-1.1) mg/dl GFR Calculation 34 Glucose 100 (70-105) mg/dL Calcium 9.1 (8.6-10.4) mg/dl Total Bilirubin 0.2 (0.0-1.0) mg/dL AST 15 (0-37) U/l ALT 13 (0-40) U/l Alkaline Phosphatase 79 (39-117) U/L Total Protein 6.8 (5.9-8.4) gm/dL Albumin 2.8 L (3.2-5.2) gm/dL Globulin 4.0 H (2.2-3.7) gm/dL Albumin/Globulin Ratio 0.7 L (1.0-2.3) Urine Color Urine Appearance Urine pH (5.0-9.0) Ur Specific Merritt (1.000-1.035) Urine Protein (NEG) mg/dL Urine Glucose (UA) (NEG) mg/dL Urine Ketones (NEG) mg/dL Urine Occult Blood (<0.03) mg/dL Urine Nitrate (NEG) Urine Bilirubin (NEG) mg/dL Urine Urobilinogen (NEG) mg/dL Ur Leukocyte Esterase (NEG) /uL Urine RBC (0-1) /hpf Urine WBC (0-4) /hpf Ur Squamous Epith Cells (0-4) /hpf Urine Bacteria (0) /hpf Hyaline Casts (0-2) /lpf Urine Mucus (0) /hpf Ur Culture Indicated? 12/06/17 Range/Units 14:57 WBC (4.5-11.0) K/mcL RBC (4.00-5.20) M/mcL Hgb (12.0-15.0) g/dL Hct (36.0-48.0) % MCV (80.0-100.0) fL MCH (26.0-34.0) pg MCHC (31.0-36.0) g/dL RDW (11.5-14.5) % Plt Count (140-440) K/mcL MPV (7.4-10.4) fL Gran % (38.0-78.0) % Lymph % (Auto) (15.5-49.0) % Latimer % (Auto) (1.0-12.0) % Eos % (Auto) (0.0-7.0) % Baso % (Auto) (0.0-2.0) % Gran # (1.8-8.0) K/mcL Lymph # (Auto) (1.5-4.8) K/mcL Latimer # (Auto) (0.1-0.9) K/mcL Eos # (Auto) (0.0-0.7) K/mcL Baso # (Auto) (0.0-0.3) K/mcL VBG Lactic Acid (0.5-2.2) mmol/L Sodium (133-145) mmol/L Potassium (3.3-5.1) mmol/L Chloride (96-108) mmol/L Carbon Dioxide (22-30) mmol/L Anion Gap (8-16) BUN (8-23) mg/dl Creatinine (0.6-1.1) mg/dl GFR Calculation Glucose (70-105) mg/dL Calcium (8.6-10.4) mg/dl Total Bilirubin (0.0-1.0) mg/dL AST (0-37) U/l ALT (0-40) U/l Alkaline Phosphatase (39-117) U/L Total Protein (5.9-8.4) gm/dL Albumin (3.2-5.2) gm/dL Globulin (2.2-3.7) gm/dL Albumin/Globulin Ratio (1.0-2.3) Urine Color Straw Urine Appearance Clear Urine pH 5.0 (5.0-9.0) Ur Specific Merritt 1.006 (1.000-1.035) Urine Protein Neg (NEG) mg/dL Urine Glucose (UA) Negative (NEG) mg/dL Urine Ketones Neg (NEG) mg/dL Urine Occult Blood Neg (<0.03) mg/dL Urine Nitrate Neg (NEG) Urine Bilirubin Neg (NEG) mg/dL Urine Urobilinogen Neg (NEG) mg/dL Ur Leukocyte Esterase 25 A (NEG) /uL Urine RBC 1 (0-1) /hpf Urine WBC 1 (0-4) /hpf Ur Squamous Epith Cells 1 (0-4) /hpf Urine Bacteria 0 (0) /hpf Hyaline Casts 2 (0-2) /lpf Urine Mucus Few (0) /hpf Ur Culture Indicated? No Disposition Pt seen by INSULATION INSPECTOR/PA only: No Clinical Impression: Cellulitis Disposition: Xfer As Inpt ([facility]) Condition: Fair Time of Disposition: 20:28
--- NOTE | 2017-12-06 12:09 | Ultrasound Report ---
CLINICAL INFORMATION: Leg pain and swelling COMPARISON: None. FINDINGS: The entire deep venous system including the common femoral, superficial femoral, popliteal and paired trifurcation calf veins are easily compressible and show normal venous blood flow on color and spectral Doppler. No evidence of thrombus IMPRESSION: Negative exam - no evidence of deep vein thrombosis. Interpreted and Authenticated by: Vincenzo Prabhakar 12/06/17
[2017-12-06 12:16] LABS: Basophils # (Auto) 0.1 K/mcL (0.0-0.3); Basophils % (Auto) 0.5 % (0.0-2.0); Eosinophils # (Auto) 0.4 K/mcL (0.0-0.7); Eosinophils % (Auto) 3.6 % (0.0-7.0); Granulocytes % (Auto) 78.7 % (38.0-78.0); Lymphocytes % (Auto) 8.8 % (15.5-49.0); Mean Cell Volume 74.8 fL (80.0-100.0); Mean Corpuscular HGB Conc 32.9 g/dL (31.0-36.0); Mean Corpuscular Hemoglobin 24.6 pg (26.0-34.0); Monocytes # (Auto) 0.9 K/mcL (0.1-0.9); Monocytes % (Auto) 8.4 % (1.0-12.0); Platelet Count 550 K/mcL (140-440); RBC 4.19 M/mcL (4.00-5.20); Red Cell Distribution Width 15.9 % (11.5-14.5)
[2017-12-06 12:24] LABS: ALT/SGPT 13 U/l (0-40); Albumin 2.8 gm/dL (3.2-5.2); Albumin/Globulin Ratio 0.7 (1.0-2.3); Alkaline Phosphatase 79 U/L (39-117); Blood Urea Nitrogen 25 mg/dl (8-23)
[2017-12-06] MEDS ORDERED: 0.9 % SODIUM CHLORIDE 500 ML IV ONE (12:46)
[2017-12-06] MEDS ORDERED: CLINDAMYCIN 600 MG in DEXTROSE 5% IN WATER 50 ML IV ONE (12:46)
[2017-12-06] MEDS ORDERED: CLINDAMYCIN 600 MG/4 ML VIAL ONE (13:03)
--- NOTE | 2017-12-06 13:59 | Internal Med History&Physical ---
Medical - H&P: [facility] Patient information: Note initiated : 12/06/17 at 1:59 pm Service Date, if different from initiated Date: [] Patient: Rabia Seals 87 y/o F admitted on for Sent By Dr Calero For Eval Of Lt Calf. Chief Complaint: Worsening LE cellulitis when seen in wound care clinic. History of present illness: The patient is an 87-year-old female with a history of congestive heart failure with chronic lower extremity edema, coronary artery disease, chronic kidney disease with history of acute renal failure who is transferred to the emergency department for further evaluation from wound care clinic. History is obtained in reviewing old records, which are obtained and summarized, and interviewing the patient, the patient can only give limited history with underlying dementia. Patient's been followed in the wound care clinic for venous stasis and chronic edema issues. Since the last visit, she has had progressive erythema of the left lower extremity greater than the right lower extremity. Patient is unable to provide any history with her underlying dementia. She does not know why she is in the emergency department. She does complain of pain in her legs currently. Does not think she's been having any fevers. Does not know how long her legs up and looking as they are. She is unsure if she's ever had anything similar in the past. In reviewing records, the patient is generally wheelchair-bound with her legs being dependent most of the day. She resists sitting in a recliner or in bed to keep her legs elevated to help with edema. She specifically denies any headache, sore throat, shortness of breath, nausea, vomiting, abdominal pain. She does complain of occasional pain in her hands and ankles associated with rheumatoid arthritis. She does complain of pain particularly in her left leg is noted. Evaluation in the ED was notable for negative duplex for DVT. She is being admitted for treatment of cellulitis. ROS unobtainable: due to mental status (dementia) Medical - H&P: PM Medical history: CHF (congestive heart failure) (Chronic) Chronic kidney disease Coronary artery disease, s/p NH 2006 Chronic lower extremity venous stasis and edema Pulmonary hypertension Rheumatoid arthritis Dementia History of chronic diarrhea, s/p colo 06/2017 Anemia H/O Cellulitis Vitamin D deficiency History of tobacco use, quit about 2006 Perforation of intestine (Resolved) H/O Acute kidney failure (Resolved) Venous stasis dermatitis of both lower extremities (Resolved) Volume depletion (Resolved) Surgical history: History of intestinal surgery (Chronic)-repair of duodenal perforation Hx of appendectomy (Chronic) S/P wrist surgery (Chronic), status post wrist fracture from fall in 2013 Pertinent family history: Unknown Arthritis Family/Other Hypertension, essential Migraines Daughter Liver failure, Onset Age: 53 The patient is unable to verify the above. Social history: The patient lives at assisted living. She is in a wheelchair, she thinks because of ankle pain from rheumatoid arthritis, does not like to be in a recliner or to keep her legs elevated. She stopped smoking in 2006, she does not drink alcohol. Medical - H&P: Meds Home Medications Medication Instructions Recorded Confirmed Type Furosemide [Lasix] 40 mg PO HS 04/17/16 12/06/17 History cholecalciferol (vitamin D3) 1,000 1,000 unit PO QDAY 90 Days #90 tab 08/10/16 12/06/17 History unit tablet aspirin 81 mg tablet,delayed 81 mg PO DAILY #90 tab 09/14/16 12/06/17 Rx release Acetaminophen [Tylenol] 650 mg PO Q6HP PRN tab 07/20/17 12/06/17 Rx Calcium Carbonate [Tums] 1,000 mg CHEWED TIDCC 07/20/17 12/06/17 Rx Carvedilol [Coreg] 6.25 mg PO BIDCC #1 tab 07/20/17 12/06/17 Rx HYDROcodone/APAP 5/325MG [[place] 0.5 - 1 tab PO Q4-6HP PRN #20 07/20/17 12/06/17 Rx 5-325Mg] Loperamide [Imodium] 2 mg PO Q6H PRN #30 cap 07/20/17 12/06/17 Rx Magnesium Hydroxide [Milk of 30 ml PO DAILYP PRN 07/20/17 12/06/17 Rx Magnesia] Ondansetron HCl [Zofran ODT] 4 mg SL Q4-6HP PRN #1 tab 07/20/17 12/06/17 Rx potassium chloride ER 10 mEq 10 meq PO BID #30 tab 08/26/17 12/06/17 Rx tablet,extended release FLUoxetine HCL [PROzac] 20 mg PO DAILY 12/06/17 12/06/17 History Furosemide [Lasix] 60 mg PO DAILY 12/06/17 12/06/17 History Allergies Allergy/AdvReac Type Severity Reaction Status Date / Time No Known Drug Allergies Allergy Verified 12/06/17 11:02 Medical - H&P: Exam - Constitutional Vitals: Temp Pulse Resp BP Pulse Ox 97.4 F 82 16 117/74 98 12/06/17 10:55 12/06/17 10:55 12/06/17 10:55 12/06/17 10:55 12/06/17 10:55 Exam: General: Alert, pleasant, in no acute distress HEENT: Normocephalic. Pupils are equally round and reactive to light. Sclera are anicteric. No conjunctival injection. Oropharynx is with moist mucous membranes, no lip or gum lesions. Tongue is midline. Neck: Supple, no meningismus. No thyromegaly. Chest: Few basal rales, otherwise clear to auscultation bilaterally with no wheezes. No accessory muscle use. Cardiovascular: Regular rate and rhythm with 2/6 systolic murmur, no gallop or rub. Carotid pulses are 2+ without bruit, dorsalis pedis pulses 2+. There is 2 + lower extremity edema. Abdomen: Soft, nontender without guarding or rebound. Active bowel sounds. No hepatosplenomegaly. Skin: Bright erythema of the left lower extremity from the knee to the ankle, patchy erythema of the right lower extremity in the distal two thirds of the leg. Tenderness with palpation, no crepitus. Musculoskeletal: Rheumatoid changes in the hands bilaterally. Digits without cyanosis or clubbing. Neuro: Alert, oriented to person, no she is at the hospital, but does not know why. Cranial nerves II through XII grossly intact. Sensation intact to light touch. Poor short-term and long-term memory. Psychiatric: Poor insight. Medical - H&P: Reslt - Labs CBC & Chem 7: 12/06/17 11:25 12/06/17 11:25 Labs: Short CBC 12/06/17 Range/Units 11:25 WBC 11.1 H (4.5-11.0) K/mcL Hgb 10.3 L (12.0-15.0) g/dL Hct 31.3 L (36.0-48.0) % Plt Count 550 H (140-440) K/mcL BMP 12/06/17 11:25 Sodium 128 L Potassium 4.0 Chloride 90 L Carbon Dioxide 25 BUN 25 H Creatinine 1.4 H Glucose 100 Calcium 9.1 Liver Function 12/06/17 Range/Units 11:25 Total Bilirubin 0.2 (0.0-1.0) mg/dL AST 15 (0-37) U/l ALT 13 (0-40) U/l Alkaline Phosphatase 79 (39-117) U/L Albumin 2.8 L (3.2-5.2) gm/dL - Impressions LLE venous duplex IMPRESSION: Negative exam - no evidence of deep vein thrombosis. Medical - H&P: A/P (1) Cellulitis Current visit: Yes Status: Acute (2) Edema of lower extremity Problem details: wears ENEDINA hose daily Current visit: Yes Status: Chronic (3) CHF (congestive heart failure) Current visit: Yes Status: Chronic (4) Chronic kidney disease Current visit: Yes Status: Chronic (5) Dementia Current visit: Yes Status: Chronic - Narrative A/P Narrative: 87-year-old female with a history of chronic lower extremity edema with venous insufficiency, mention of pulmonary hypertension in the chart, but no echocardiogram available, mention of congestive heart failure, severe dementia, presents to the ED from wound care clinic with erythema of the lower extremities worsening in the last 2 weeks. Cellulitis of the left greater than right lower extremities. In the setting of chronic lower extremity edema. Has failed outpatient attempts at treatment of lower extremity edema, the patient is very refractory to EP in her legs elevated , now appears to have cellulitis in the setting of impaired skin barrier. Lactate is normal. White count only mildly elevated. No evidence of concurrent deep venous thrombosis. Plan: 1. Inpatient admission, anticipate greater than 2 midnights 2. Continue with clindamycin as started in the emergency department. Add ceftriaxone for beta-lactam, we'll also treat urinary tract infection 3. Elevate lower extremities 4. Begin intravenous furosemide to help diuresis volume overload 5. Check echocardiogram to better assess ventricular function, pulmonary hypertension and volume status. Congestive heart failure. History of CHF noted in chart, no mention of diastolic or systolic function. On carvedilol. Previously been on spironolactone, that was stopped due to renal failure last June. Plan: Continue with carvedilol, change furosemide to IV, check echocardiogram. Chronic kidney disease. We'll need to follow creatinine with diuresis. Plan: Trend creatinine. Urinary tract infection. Abnormal urinalysis, marked leukocyte esterase, but not much on microscopic. Plan: Ceftriaxone for now (beta-lactam also indicated for cellulitis), send urine for culture and follow-up cultures and narrow antibiotics as able. Dementia. Patient risk for delirium. No behavioral disturbances currently. Plan: Supportive care. Prophylaxis: Subcutaneous Lovenox. CODE STATUS: When I spoke with the patient, she initially said she would not want resuscitation if she was found pulseless. Subsequently in discussion with her daughter and the patient, she states she did want to have compressions but not intubation. This CODE STATUS is full code, DO NOT INTUBATE.
[2017-12-06 15:14] LABS: Appearance,Urine CLEAR; Bacteria,Urine 0 /hpf (0); Bilirubin,Urine NEG (NEG); Color,Urine STRAW; Glucose,Urine (UA) NEGATIVE (NEG); Leukocyte Esterase,Urine 25 /uL (NEG); Mucus,Urine FEW /hpf (0); Protein,Urine NEG (NEG); Specific Gravity,Urine 1.006 (1.000-1.035); Urine Blood NEG mg/dL (<0.03); Urine Hyaline Cast 2 /lpf (0-2); Urine RBC 1 /hpf (0-1); Urine Squamous Epithelial Cell 1 /hpf (0-4); Urine WBC 1 /hpf (0-4); Urobilinogen,Urine NEG (NEG)
[2017-12-06] MEDS ORDERED: cefTRIAXone 1 GM in DEXTROSE 5% IN WATER 50 ML IV SCH (15:46)
[2017-12-06] MEDS ORDERED: ACETAMINOPHEN 325 MG TABLET PO PRN (15:46)
[2017-12-06] MEDS ORDERED: ONDANSETRON 4 MG/2 ML VIAL IV PRN (15:46)
[2017-12-06] MEDS ORDERED: MAGNESIUM HYDROXIDE 30 ML ORAL.SUSP PO PRN (16:03)
[2017-12-06] MEDS: 0.9 % SODIUM CHLORIDE 10 ML SYRINGE IV SCH ×2 (17:37→21:38)
[2017-12-06] MEDS: cefTRIAXone 1 GM VIAL IV SCH (17:37)
[2017-12-06] MEDS: FUROSEMIDE 40 MG/4 ML VIAL IV SCH (17:37)
[2017-12-06] MEDS: CARVEDILOL 3.125 MG TABLET PO SCH (17:38)
[2017-12-06] MEDS: POTASSIUM CHLORIDE 10 MEQ TABLET PO SCH (17:38)
[2017-12-06] MEDS: CALCIUM CARBONATE 500 MG TAB.CHEW CHEWED SCH (17:38)
--- NOTE | 2017-12-06 18:32 | General Surgery Consult Note ---
History of Present Illness Patient information: Note initiated : 12/06/17 at 6:32 pm Service Date, if different from initiated Date: [] Patient: Rabia Seals 87 y/o F admitted on 12/06/[address] Calero For Eval Of Lt Calf. Chief Complaint: []Patient was admitted from ER after earlier evaluation in wound care clinic. She has had an interval change in her condition with gross edema of both LE , LLE > RLE. She has dermatitis and cellulitis of both LE L > R , Additionally she appears to have exacerbation of CHF and now with SOB. She was evaluated in ER, DVT was ruled out on US and she is now undergoing local wound care in addition to ongoing management of he medical issues. Consult date: 12/06/17 Requesting physician: Zainab Jacobo (Wound care consult.) Medications and Allergies Home Medications Medication Instructions Recorded Confirmed Type Furosemide [Lasix] 40 mg PO HS 04/17/16 12/06/17 History cholecalciferol (vitamin D3) 1,000 1,000 unit PO QDAY 90 Days #90 tab 08/10/16 12/06/17 History unit tablet aspirin 81 mg tablet,delayed 81 mg PO DAILY #90 tab 09/14/16 12/06/17 Rx release Acetaminophen [Tylenol] 650 mg PO Q6HP PRN tab 07/20/17 12/06/17 Rx Calcium Carbonate [Tums] 1,000 mg CHEWED TIDCC 07/20/17 12/06/17 Rx Carvedilol [Coreg] 6.25 mg PO BIDCC #1 tab 07/20/17 12/06/17 Rx HYDROcodone/APAP 5/325MG [[place] 0.5 - 1 tab PO Q4-6HP PRN #20 07/20/17 12/06/17 Rx 5-325Mg] Loperamide [Imodium] 2 mg PO Q6H PRN #30 cap 07/20/17 12/06/17 Rx Magnesium Hydroxide [Milk of 30 ml PO DAILYP PRN 07/20/17 12/06/17 Rx Magnesia] Ondansetron HCl [Zofran ODT] 4 mg SL Q4-6HP PRN #1 tab 07/20/17 12/06/17 Rx potassium chloride ER 10 mEq 10 meq PO BID #30 tab 08/26/17 12/06/17 Rx tablet,extended release FLUoxetine HCL [PROzac] 20 mg PO DAILY 12/06/17 12/06/17 History Furosemide [Lasix] 60 mg PO DAILY 12/06/17 12/06/17 History Allergies Allergy/AdvReac Type Severity Reaction Status Date / Time No Known Drug Allergies Allergy Verified 12/06/17 11:02 Exam Temp Pulse Resp BP Pulse Ox 97.6 F 84 20 118/58 94 12/06/17 15:43 12/06/17 14:43 12/06/17 15:43 12/06/17 15:43 12/06/17 15:43 - General physical appearance well developed, well nourished, moderate distress, chronically ill, other ( Worsening of Edema of both legs with cellulitis of legs L > R with discoloration of skin upto knees.) - Eyes PERRL, normal ocular movement - ENT normal pinna, normal nares, normal mucosa, no congestion - Head Head exam IM: Present: atraumatic, normal inspection, normocephalic - Neck no masses, trachea midline, no venous distension - Cardiovascular Cardiovascular exam IM: Present: normal rate and rhythm - Respiratory normal respiratory effort, other (Diminishes ait entry lung bases) - Abdomen Abdomen: Present: soft, non tender, bowel sounds - Integumentary Present: other (Wet dermatitis, Reddis circumferntial dicolration of Left leg upto and behind knee and lower Right leg) - Neurologic Present: normal coordination, normal sensation (Non focal neurological examination. WILLARD) - Musculoskeletal Present: other (Non ambulatory) - Psychiatric Present: oriented to time, oriented to person, speech is normal Results - Labs 12/06/17 11:25 12/08/17 05:11 Abnormal lab results 12/06/17 12/06/17 12/06/17 Range/Units 11:25 11:25 14:57 WBC 11.1 H (4.5-11.0) K/mcL Hgb 10.3 L (12.0-15.0) g/dL Hct 31.3 L (36.0-48.0) % MCV 74.8 L (80.0-100.0) fL MCH 24.6 L (26.0-34.0) pg RDW 15.9 H (11.5-14.5) % Plt Count 550 H (140-440) K/mcL MPV 6.8 L (7.4-10.4) fL Gran % 78.7 H (38.0-78.0) % Lymph % (Auto) 8.8 L (15.5-49.0) % Gran # 8.7 H (1.8-8.0) K/mcL Lymph # (Auto) 1.0 L (1.5-4.8) K/mcL Sodium 128 L (133-145) mmol/L Chloride 90 L (96-108) mmol/L BUN 25 H (8-23) mg/dl Creatinine 1.4 H (0.6-1.1) mg/dl Albumin 2.8 L (3.2-5.2) gm/dL Globulin 4.0 H (2.2-3.7) gm/dL Albumin/Globulin Ratio 0.7 L (1.0-2.3) Ur Leukocyte Esterase 25 A (NEG) /uL Diabetes panel 12/06/17 Range/Units 11:25 Sodium 128 L (133-145) mmol/L Potassium 4.0 (3.3-5.1) mmol/L Chloride 90 L (96-108) mmol/L Carbon Dioxide 25 (22-30) mmol/L BUN 25 H (8-23) mg/dl Creatinine 1.4 H (0.6-1.1) mg/dl Glucose 100 (70-105) mg/dL Calcium 9.1 (8.6-10.4) mg/dl AST 15 (0-37) U/l ALT 13 (0-40) U/l Alkaline Phosphatase 79 (39-117) U/L Total Protein 6.8 (5.9-8.4) gm/dL Albumin 2.8 L (3.2-5.2) gm/dL Calcium panel 12/06/17 Range/Units 11:25 Calcium 9.1 (8.6-10.4) mg/dl Albumin 2.8 L (3.2-5.2) gm/dL Pituitary panel 12/06/17 Range/Units 11:25 Sodium 128 L (133-145) mmol/L Potassium 4.0 (3.3-5.1) mmol/L Chloride 90 L (96-108) mmol/L Carbon Dioxide 25 (22-30) mmol/L BUN 25 H (8-23) mg/dl Creatinine 1.4 H (0.6-1.1) mg/dl Glucose 100 (70-105) mg/dL Calcium 9.1 (8.6-10.4) mg/dl Adrenal panel 12/06/17 Range/Units 11:25 Sodium 128 L (133-145) mmol/L Potassium 4.0 (3.3-5.1) mmol/L Chloride 90 L (96-108) mmol/L Carbon Dioxide 25 (22-30) mmol/L BUN 25 H (8-23) mg/dl Creatinine 1.4 H (0.6-1.1) mg/dl Glucose 100 (70-105) mg/dL Calcium 9.1 (8.6-10.4) mg/dl Total Bilirubin 0.2 (0.0-1.0) mg/dL AST 15 (0-37) U/l ALT 13 (0-40) U/l Alkaline Phosphatase 79 (39-117) U/L Total Protein 6.8 (5.9-8.4) gm/dL Albumin 2.8 L (3.2-5.2) gm/dL All other labs normal. Assessment and Plan (1) Dermatitis Assessment: Wet dermatitis both legs and Cellulitis Plan: Local wound care, Clean with Chlorhexidine and MIST treatment once daily. Silvadene creme to legs and Kerlix bandage circumferentially to legs. Elevate legs on pillows. Will follow patient along whilst she is in hospital . Status: Acute Priority: Medium
[2017-12-06] MEDS: HYDROcodone/APAP 5/325MG TABLET PO PRN (19:18)
[2017-12-06] MEDS: CLINDAMYCIN 600 MG in DEXTROSE 5% IN WATER 50 ML IV SCH (21:38)
[2017-12-07] MEDS: HYDROcodone/APAP 5/325MG TABLET PO PRN ×4 (04:18→20:53)
[2017-12-07] MEDS: CLINDAMYCIN 600 MG in DEXTROSE 5% IN WATER 50 ML IV SCH ×3 (05:32→22:17)
[2017-12-07] MEDS: 0.9 % SODIUM CHLORIDE 10 ML SYRINGE IV SCH ×3 (05:32→22:17)
[2017-12-07 06:42] LABS: Blood Urea Nitrogen 25 mg/dl (8-23)
[2017-12-07] MEDS: POTASSIUM CHLORIDE 10 MEQ TABLET PO SCH ×2 (08:14→17:31)
[2017-12-07] MEDS: FUROSEMIDE 40 MG/4 ML VIAL IV SCH ×2 (08:14→15:59)
[2017-12-07] MEDS: CARVEDILOL 3.125 MG TABLET PO SCH ×2 (08:14→17:31)
[2017-12-07] MEDS: CALCIUM CARBONATE 500 MG TAB.CHEW CHEWED SCH ×3 (08:15→17:31)
--- NOTE | 2017-12-07 08:46 | Emergency Department Note ---
ED Note Addendum Note Addendum: I saw this patient with Lori JAMISON. I agree with her assessment management and documentation. I was originally contacted by Dr. Calero, from wound care who showed me pictures of the patient's lower extremities. She was admitted for further care
[2017-12-07] MEDS: ENOXAPARIN 30 MG/0.3 ML SYRINGE SQ SCH (09:48)
[2017-12-07] MEDS: ASPIRIN 81 MG TAB.CHEW PO SCH (09:48)
[2017-12-07] MEDS: cefTRIAXone 1 GM VIAL IV SCH (09:48)
[2017-12-07] MEDS: FLUoxetine HCL 20 MG CAPSULE PO SCH (09:48)
[2017-12-07] MEDS: VITAMIN D3 1,000 UNIT TABLET PO SCH (09:48)
[2017-12-07] MEDS: SILVER SULFADIAZINE CREAM.TOP 25GM TOPICAL SCH (12:02)
--- NOTE | 2017-12-07 15:11 | Internal Med Progress Note ---
Medical - PN: Subj Patient information: Note initiated : 12/07/17 at 3:09 pm Service Date, if different from initiated Date: [] Patient: Rabia Seals 87 y/o F admitted on 12/06/[address] Calero For Eval Of Lt Calf. Chief Complaint: f/u cellulitis Interval history: 12/06-The patient is an 87-year-old female with a history of congestive heart failure with chronic lower extremity edema, coronary artery disease, chronic kidney disease with history of acute renal failure who is transferred to the emergency department for further evaluation from wound care clinic. History is obtained in reviewing old records, which are obtained and summarized, and interviewing the patient, the patient can only give limited history with underlying dementia. Patient's been followed in the wound care clinic for venous stasis and chronic edema issues. Since the last visit, she has had progressive erythema of the left lower extremity greater than the right lower extremity. Patient is unable to provide any history with her underlying dementia. She does not know why she is in the emergency department. She does complain of pain in her legs currently. Does not think she's been having any fevers. Does not know how long her legs up and looking as they are. She is unsure if she's ever had anything similar in the past. In reviewing records, the patient is generally wheelchair-bound with her legs being dependent most of the day. She resists sitting in a recliner or in bed to keep her legs elevated to help with edema. She specifically denies any headache, sore throat, shortness of breath, nausea, vomiting, abdominal pain. She does complain of occasional pain in her hands and ankles associated with rheumatoid arthritis. She does complain of pain particularly in her left leg is noted. Evaluation in the ED was notable for negative duplex for DVT. She is being admitted for treatment of cellulitis. 12/07-seen on rounds this morning. Does not remember me. Does not know why she is in the hospital. Currently not complaining of any pain in her legs. Seems surprised that she has any issue with her legs. Otherwise been stable, pleasant , tolerating antibiotics and treatments. - Constitutional Vitals: Vital Signs Temp Pulse Resp BP Pulse Ox 99.7 F H 75 22 104/50 92 12/07/17 07:04 12/07/17 07:04 12/07/17 07:04 12/07/17 07:04 12/07/17 07:04 Period Temp Pulse Resp BP Sys/Marino Pulse Ox Last 24 Hr 97.2 F-100 F 75-90 20-28 104-118/50-60 92-94 Intake and Output 12/07/17 12/07/17 12/07/17 05:59 13:59 21:59 Intake Total 954 / 954 1094 / 1094 Output Total 526 / 526 300 / 300 Balance 428 / 428 794 / 794 Weight 189 lb Patient Weight 12/08/17 05:59 Weight 189 lb Intake & Output: Intake & Output 12/07/17 12/07/17 12/07/17 05:59 13:59 21:59 Intake Total 954 / 954 1094 / 1094 Output Total 526 / 526 300 / 300 Balance 428 / 428 794 / 794 Weight 189 lb Intake: IV 54 / 54 54 / 54 Cleocin 600 mg In Dextrose 5% 54 / 54 54 / 54 in Water 50 ml @ 100 mls/hr IV Q8H KLAUDIA Rx#:[id number] Oral 900 / 900 1040 / 1040 Output: Void Amount 525 / 525 300 / 300 # of times incontinent of urine Other: Meal Apple sauce Lunch Percent of Meal Consumed 100% 75% Feeding Ability Total Assistance Assist with Tray Set Up # Bowel Movements 1 # of times incontinent of 1 Bowels Exam: General: Laying in bed, no acute distress Chest: Clear, no rales Cardiovascular: Regular rate and rhythm, 2+ lower extremity edema. Abdomen: Soft, nontender Skin: Left lower extremity with some receding of erythema from the proximal margin., Remains bright erythematous with tenderness to touch. Serous weeping noted. Neuro: Alert, oriented to self, poor recall of events from yesterday, needs assist with transfers, but appears to be close to baseline at this time. Medical - PN: Obj Da - Labs CBC & Chem 7: 12/06/17 11:25 12/07/17 05:03 Labs: Abnormal Lab Results 12/07/17 12/06/17 12/06/17 05:03 14:57 11:25 WBC Hgb Hct MCV MCH RDW Plt Count MPV Gran % Lymph % (Auto) Gran # Lymph # (Auto) Sodium 132 L 128 L Chloride 95 L 90 L BUN 25 H 25 H Creatinine 1.6 H 1.4 H Albumin 2.8 L Globulin 4.0 H Albumin/Globulin Ratio 0.7 L Ur Leukocyte Esterase 25 A 12/06/17 11:25 WBC 11.1 H Hgb 10.3 L Hct 31.3 L MCV 74.8 L MCH 24.6 L RDW 15.9 H Plt Count 550 H MPV 6.8 L Gran % 78.7 H Lymph % (Auto) 8.8 L Gran # 8.7 H Lymph # (Auto) 1.0 L Sodium Chloride BUN Creatinine Albumin Globulin Albumin/Globulin Ratio Ur Leukocyte Esterase Meds: Medications Acetaminophen (Tylenol) 650 mg PO Q6HP PRN PRN Reason: PAIN/FEVER > 101 Hydrocodone Bitart/Acetaminophen ([place] 5/325mg) 0.5 - 1 tab PO Q4-6HP PRN PRN Reason: Pain Last Admin: 12/07/17 12:03 Dose: 1 tab Aspirin (Aspirin) 81 mg PO DAILY [facility] Last Admin: 12/07/17 09:48 Dose: 81 mg Calcium Carbonate/Glycine (Tums) 1,000 mg CHEWED TIDCC [facility] Last Admin: 12/07/17 12:03 Dose: 1,000 mg Carvedilol (Coreg) 6.25 mg PO BIDCC [facility] Last Admin: 12/07/17 08:14 Dose: 6.25 mg Ceftriaxone Sodium (Rocephin) 1 gm IV Q24H [facility] Last Admin: 12/07/17 09:48 Dose: 1 gm Enoxaparin Sodium (Lovenox) 30 mg SQ DAILY [facility] Last Admin: 12/07/17 09:48 Dose: 30 mg Fluoxetine HCl (Prozac) 20 mg PO DAILY [facility] Last Admin: 12/07/17 09:48 Dose: 20 mg Furosemide (Lasix) 40 mg IV BIDD [facility] Last Admin: 12/07/17 08:14 Dose: 40 mg Clindamycin Phosphate 600 mg/ (Dextrose) 54 mls @ 100 mls/hr IV Q8H [facility] Last Admin: 12/07/17 14:12 Dose: 100 mls/hr Magnesium Hydroxide (Milk Of Magnesia) 30 ml PO DAILYP PRN PRN Reason: Constipation Ondansetron HCl (Zofran) 4 mg IV Q6HP PRN PRN Reason: Nausea And Vomiting Potassium Chloride (Kdur) 10 meq PO BIDCC [facility] Last Admin: 12/07/17 08:14 Dose: 10 meq Silver Sulfadiazine (Silvadene) 1 dose TOPICAL DAILY [facility] Last Admin: 12/07/17 12:02 Dose: 1 gm Sodium Chloride (Saline Flush) 10 ml IV Q8 [facility] Last Admin: 12/07/17 14:12 Dose: 10 ml Vitamin D (Vitamin D3) 1,000 unit PO QDAY [facility] Last Admin: 12/07/17 09:48 Dose: 1,000 unit Medical - PN: A/P (1) Cellulitis Status: Acute Current Visit: Yes (2) Edema of lower extremity Problem details: wears ENEDINA hose daily Status: Chronic Current Visit: Yes (3) CHF (congestive heart failure) Status: Chronic Current Visit: Yes (4) Chronic kidney disease Status: Chronic Current Visit: Yes (5) Dementia Status: Chronic Current Visit: Yes - Narrative A/P Narrative: 87-year-old female with a history of chronic lower extremity edema with venous insufficiency, mention of pulmonary hypertension in the chart, but no echocardiogram available, mention of congestive heart failure, severe dementia, presents to the ED from wound care clinic with erythema of the lower extremities worsening in the last 2 weeks. Cellulitis of the left greater than right lower extremities. In the setting of chronic lower extremity edema, failed outpatient treatment. Plan: Continue with clindamycin and ceftriaxone. Neuro ceftriaxone to cefazolin depending upon results of urine culture. Continue to elevate lower extremities, continue with diuresis. Follow-up echocardiogram to evaluate ventricular function and pulmonary hypertension. Congestive heart failure. History of CHF noted in chart. Echocardiogram has been completed, reading is pending. Plan: Continue with carvedilol, continue with IV furosemide, follow-up echo Chronic kidney disease. We'll need to follow creatinine with diuresis. Plan: Trend creatinine. Urinary tract infection. Abnormal urinalysis, marked leukocyte esterase, but not much on microscopic. Plan: Ceftriaxone for now (beta-lactam also indicated for cellulitis), follow- up urine culture, currently too young, been reintubated. Dementia. Patient risk for delirium. No behavioral disturbances currently. Plan: Supportive care.
[2017-12-07] MEDS: LACTOBACILLUS 1 CAPSULE PO SCH (20:53)
[2017-12-08] MEDS: HYDROcodone/APAP 5/325MG TABLET PO PRN ×4 (04:27→21:23)
[2017-12-08] MEDS: 0.9 % SODIUM CHLORIDE 10 ML SYRINGE IV SCH ×3 (05:49→21:24)
[2017-12-08] MEDS: CLINDAMYCIN 600 MG in DEXTROSE 5% IN WATER 50 ML IV SCH ×3 (05:49→21:27)
[2017-12-08 07:25] LABS: Blood Urea Nitrogen 37 mg/dl (8-23); Prealbumin 7.2 mg/dl (20-40)
[2017-12-08] MEDS ORDERED: FUROSEMIDE 40 MG/4 ML VIAL IV SCH (09:00)
[2017-12-08] MEDS: FUROSEMIDE 40 MG/4 ML VIAL IV SCH (10:00)
[2017-12-08] MEDS: SILVER SULFADIAZINE CREAM.TOP 25GM TOPICAL SCH (10:32)
[2017-12-08] MEDS: CALCIUM CARBONATE 500 MG TAB.CHEW CHEWED SCH ×3 (10:32→17:58)
[2017-12-08] MEDS: ENOXAPARIN 30 MG/0.3 ML SYRINGE SQ SCH (10:33)
[2017-12-08] MEDS: LACTOBACILLUS 1 CAPSULE PO SCH ×2 (10:33→20:10)
[2017-12-08] MEDS: VITAMIN D3 1,000 UNIT TABLET PO SCH (10:33)
[2017-12-08] MEDS: ASPIRIN 81 MG TAB.CHEW PO SCH (10:33)
[2017-12-08] MEDS: POTASSIUM CHLORIDE 10 MEQ TABLET PO SCH ×2 (10:33→17:39)
[2017-12-08] MEDS: CARVEDILOL 3.125 MG TABLET PO SCH ×2 (10:34→17:39)
[2017-12-08] MEDS: FLUoxetine HCL 20 MG CAPSULE PO SCH (10:34)
--- NOTE | 2017-12-08 11:45 | General Surgery Progress Note ---
Subjective Patient reports: other Narrative: Note initiated : 12/08/17 at 11:43 am Service Date, if different from initiated Date: [] Patient: Rabia Seals 87 y/o F admitted on 12/06/[address] Calero For Eval Of Lt Calf. Chief Complaint: [] Patient seen with Dr. Jacobo and Cheryl RN. Progress reviewed and wound examined. Objective Temp Pulse Resp BP Pulse Ox 97.3 F 75 20 110/58 90 12/08/17 04:30 12/08/17 04:30 12/08/17 04:30 12/08/17 04:30 12/08/17 04:30 AVSS. Reviewed SANDOR and progress notes of nursing staff and hospitalist physician. L/E Significant improvement in edema of both LE . Skin showing wrinkles. - Additional Data Intake & Output - Last 24 hours: Intake & Output 12/06/17 12/07/17 12/08/17 12/09/17 05:59 05:59 05:59 05:59 Intake Total 1908 / 1908 1232 / 1232 Output Total 526 / 526 950 / 950 Balance 1382 / 1382 282 / 282 Weight 189 lb 188 lb 8 oz - Labs 12/06/17 11:25 12/08/17 05:11 Diabetes panel 12/08/17 Range/Units 05:11 Sodium 132 L (133-145) mmol/L Potassium 4.5 (3.3-5.1) mmol/L Chloride 96 (96-108) mmol/L Carbon Dioxide 21 L (22-30) mmol/L BUN 37 H (8-23) mg/dl Creatinine 1.7 H (0.6-1.1) mg/dl Glucose 83 (70-105) mg/dL Calcium 8.6 (8.6-10.4) mg/dl Calcium panel 12/08/17 Range/Units 05:11 Calcium 8.6 (8.6-10.4) mg/dl Pituitary panel 12/08/17 Range/Units 05:11 Sodium 132 L (133-145) mmol/L Potassium 4.5 (3.3-5.1) mmol/L Chloride 96 (96-108) mmol/L Carbon Dioxide 21 L (22-30) mmol/L BUN 37 H (8-23) mg/dl Creatinine 1.7 H (0.6-1.1) mg/dl Glucose 83 (70-105) mg/dL Calcium 8.6 (8.6-10.4) mg/dl Adrenal panel 12/08/17 Range/Units 05:11 Sodium 132 L (133-145) mmol/L Potassium 4.5 (3.3-5.1) mmol/L Chloride 96 (96-108) mmol/L Carbon Dioxide 21 L (22-30) mmol/L BUN 37 H (8-23) mg/dl Creatinine 1.7 H (0.6-1.1) mg/dl Glucose 83 (70-105) mg/dL Calcium 8.6 (8.6-10.4) mg/dl Assessment and Plan (1) Dermatitis Status: Acute Current Visit: Yes - Narrative A/P Narrative: Assessment: Satisfactory progress from wound care point of view. Plan: Continue ongoing medical care and local wound treatment. - Time Spent With Patient Total time spent is greater than 50% in coordination of care (as documented) at patient's floor/unit and/or counseling patient: 15 - 24 minutes
[2017-12-08] MEDS: cefTRIAXone 1 GM VIAL IV SCH (11:53)
--- NOTE | 2017-12-08 12:05 | Internal Med Progress Note ---
Medical - PN: Subj Patient information: Note initiated : 12/08/17 at 12:02 pm Service Date, if different from initiated Date: [] Patient: Rabia Seals 87 y/o F admitted on 12/06/[address] Calero For Eval Of Lt Calf. Chief Complaint: f/u cellulitis Interval history: 12/06-The patient is an 87-year-old female with a history of congestive heart failure with chronic lower extremity edema, coronary artery disease, chronic kidney disease with history of acute renal failure who is transferred to the emergency department for further evaluation from wound care clinic. History is obtained in reviewing old records, which are obtained and summarized, and interviewing the patient, the patient can only give limited history with underlying dementia. Patient's been followed in the wound care clinic for venous stasis and chronic edema issues. Since the last visit, she has had progressive erythema of the left lower extremity greater than the right lower extremity. Patient is unable to provide any history with her underlying dementia. She does not know why she is in the emergency department. She does complain of pain in her legs currently. Does not think she's been having any fevers. Does not know how long her legs up and looking as they are. She is unsure if she's ever had anything similar in the past. In reviewing records, the patient is generally wheelchair-bound with her legs being dependent most of the day. She resists sitting in a recliner or in bed to keep her legs elevated to help with edema. She specifically denies any headache, sore throat, shortness of breath, nausea, vomiting, abdominal pain. She does complain of occasional pain in her hands and ankles associated with rheumatoid arthritis. She does complain of pain particularly in her left leg is noted. Evaluation in the ED was notable for negative duplex for DVT. She is being admitted for treatment of cellulitis. 12/07-seen on rounds this morning. Does not remember me. Does not know why she is in the hospital. Currently not complaining of any pain in her legs. Seems surprised that she has any issue with her legs. Otherwise been stable, pleasant , tolerating antibiotics and treatments. 12/08-seen with Dr. Calero during dressing changes. Patient without complaints. Knows she is in the hospital, does not know why she is here, does not recall me from prior visits. Legs are improving with dressing changes, diuresis and antibiotics. - Constitutional Vitals: Vital Signs Temp Pulse Resp BP Pulse Ox 97.3 F 75 20 110/58 90 12/08/17 04:30 12/08/17 04:30 12/08/17 04:30 12/08/17 04:30 12/08/17 04:30 Period Temp Pulse Resp BP Sys/Marino Pulse Ox Last 24 Hr 97.3 F-97.9 F 68-79 18-20 104-110/48-58 90-96 Intake and Output 12/07/17 12/08/17 12/08/17 21:59 05:59 13:59 Intake Total 54 / 54 84 / 84 Output Total 400 / 400 250 / 250 Balance -346 / -346 -166 / -166 Weight 188 lb 8 oz Intake & Output: Intake & Output 12/07/17 12/08/17 12/08/17 21:59 05:59 13:59 Intake Total 54 / 54 84 / 84 Output Total 400 / 400 250 / 250 Balance -346 / -346 -166 / -166 Weight 188 lb 8 oz Intake: IV 54 / 54 54 / 54 Cleocin 600 mg In Dextrose 5% 54 / 54 54 / 54 in Water 50 ml @ 100 mls/hr IV Q8H [facility] Rx#:[id number] Oral Output: Void Amount 400 / 400 250 / 250 Other: # Voids 1 Exam: General: Pleasant, no acute distress Chest: Clear, no rales, nonlabored Cardio vascular: Regular, 2+ lower extremity edema Abdomen: Soft, nontender, active bowel sounds Skin: Left lower extremity with decreased dermal edema, flaking of superficial epithelium, decreased depth of erythema with some regression of the extent both proximally and distally. Right lower extremity with less severe changes, also improving. Neuro: Alert, oriented to self and in the hospital, poor long-term recall. Medical - PN: Obj Da - Labs CBC & Chem 7: 12/06/17 11:25 12/08/17 05:11 Labs: Abnormal Lab Results 12/08/17 12/08/17 12/07/17 05:11 05:11 05:03 WBC Hgb Hct MCV MCH RDW Plt Count MPV Gran % Lymph % (Auto) Gran # Lymph # (Auto) Sodium 132 L 132 L Chloride 95 L Carbon Dioxide 21 L BUN 37 H 25 H Creatinine 1.7 H 1.6 H Albumin Globulin Albumin/Globulin Ratio Prealbumin 7.2 L Ur Leukocyte Esterase 12/06/17 12/06/17 12/06/17 14:57 11:25 11:25 WBC 11.1 H Hgb 10.3 L Hct 31.3 L MCV 74.8 L MCH 24.6 L RDW 15.9 H Plt Count 550 H MPV 6.8 L Gran % 78.7 H Lymph % (Auto) 8.8 L Gran # 8.7 H Lymph # (Auto) 1.0 L Sodium 128 L Chloride 90 L Carbon Dioxide BUN 25 H Creatinine 1.4 H Albumin 2.8 L Globulin 4.0 H Albumin/Globulin Ratio 0.7 L Prealbumin Ur Leukocyte Esterase 25 A Microbiology 12/06/17 11:25 Blood Culture - Preliminary Blood 12/06/17 11:33 Blood Culture - Preliminary Blood 12/06/17 14:59 Urine Culture - Preliminary Urine - Clean Void Mid-Stream Strep agalactiae - (group b) Enterococcus species Meds: Medications Acetaminophen (Tylenol) 650 mg PO Q6HP PRN PRN Reason: PAIN/FEVER > 101 Hydrocodone Bitart/Acetaminophen ([place] 5/325mg) 0.5 - 1 tab PO Q4-6HP PRN PRN Reason: Pain Last Admin: 12/08/17 10:33 Dose: 1 tab Aspirin (Aspirin) 81 mg PO DAILY [facility] Last Admin: 12/08/17 10:33 Dose: 81 mg Calcium Carbonate/Glycine (Tums) 1,000 mg CHEWED TIDCC [facility] Last Admin: 12/08/17 10:32 Dose: 1,000 mg Carvedilol (Coreg) 6.25 mg PO BIDCC [facility] Last Admin: 12/08/17 10:34 Dose: 6.25 mg Ceftriaxone Sodium (Rocephin) 1 gm IV Q24H [facility] Last Admin: 12/08/17 11:53 Dose: 1 gm Enoxaparin Sodium (Lovenox) 30 mg SQ DAILY [facility] Last Admin: 12/08/17 10:33 Dose: 30 mg Fluoxetine HCl (Prozac) 20 mg PO DAILY [facility] Last Admin: 12/08/17 10:34 Dose: 20 mg Furosemide (Lasix) 40 mg IV DAILY [facility] Last Admin: 12/08/17 10:34 Dose: 40 mg Clindamycin Phosphate 600 mg/ (Dextrose) 54 mls @ 100 mls/hr IV Q8H [facility] Last Admin: 12/08/17 05:49 Dose: 100 mls/hr Lactobacillus Rhamnosus (Culturelle) 1 cap PO BID [facility] Last Admin: 12/08/17 10:33 Dose: 1 cap Magnesium Hydroxide (Milk Of Magnesia) 30 ml PO DAILYP PRN PRN Reason: Constipation Ondansetron HCl (Zofran) 4 mg IV Q6HP PRN PRN Reason: Nausea And Vomiting Potassium Chloride (Kdur) 10 meq PO BIDCC [facility] Last Admin: 12/08/17 10:33 Dose: 10 meq Silver Sulfadiazine (Silvadene) 1 dose TOPICAL DAILY [facility] Last Admin: 12/08/17 10:32 Dose: 1 dose Sodium Chloride (Saline Flush) 10 ml IV Q8 [facility] Last Admin: 12/08/17 05:49 Dose: 10 ml Vitamin D (Vitamin D3) 1,000 unit PO QDAY [facility] Last Admin: 12/08/17 10:33 Dose: 1,000 unit - Impressions Echocardiogram, 12/07/2017 Left ventricle is normal in size, mild to moderate concentric LVH. Low normal ventricular systolic function, estimated ejection fraction 50-55%. Right ventricle mildly dilated with paradoxical septal motion consistent with right ventricular volume overload. Doppler suggests severe pulmonary hypertension and dilated IVC suggest increased RA pressure. The atria are moderately dilated. Moderate to severe posterior mitral annular calcification, moderate mitral regurgitation, moderate aortic sclerosis. Medical - PN: A/P - Time Spent With Patient Total time spent is greater than 50% in coordination of care (as documented) at patient's floor/unit and/or counseling patient: (1) Cellulitis Status: Acute Current Visit: Yes (2) Edema of lower extremity Problem details: wears ENEDINA hose daily Status: Chronic Current Visit: Yes (3) CHF (congestive heart failure) Status: Chronic Current Visit: Yes (4) Chronic kidney disease Status: Chronic Current Visit: Yes (5) Dementia Status: Chronic Current Visit: Yes - Narrative A/P Narrative: 87-year-old female with a history of chronic lower extremity edema with venous insufficiency, mention of pulmonary hypertension in the chart, but no echocardiogram available, mention of congestive heart failure, severe dementia, presents to the ED from wound care clinic with erythema of the lower extremities worsening in the last 2 weeks. Cellulitis of the left greater than right lower extremities. In the setting of chronic lower extremity edema, failed outpatient treatment. Improving. Plan: Continue with clindamycin and ceftriaxone. Narrow ceftriaxone to cefazolin depending upon results of urine culture. Continue to elevate lower extremities, continue with diuresis. PT/OT, mobilize, continue wound care. Congestive heart failure. Echocardiogram with low normal LV systolic function, however evidence of pulmonary hypertension, RV volume overload and right-sided failure. Edema is clinically improving Plan: Continue with carvedilol, continue with IV furosemide, reduced dose due to creatinine trending upward. Chronic kidney disease. Follow creatinine with diuresis. Adjusting diuretics today Plan: Trend creatinine. Urinary tract infection. Abnormal urinalysis, marked leukocyte esterase, but not much on microscopic. Strep and low growth enterococcus on preliminary culture Plan: Continue with ceftriaxone, follow-up final sensitivities. Dementia. Patient risk for delirium. No behavioral disturbances currently. Plan: Supportive care.
[2017-12-09] MEDS: CLINDAMYCIN 600 MG in DEXTROSE 5% IN WATER 50 ML IV SCH ×3 (05:39→22:43)
[2017-12-09] MEDS: 0.9 % SODIUM CHLORIDE 10 ML SYRINGE IV SCH ×3 (05:39→22:44)
[2017-12-09 07:34] LABS: Basophils # (Auto) 0 K/mcL (0.0-0.3); Basophils % (Auto) 0.1 % (0.0-2.0); Eosinophils # (Auto) 1.1 K/mcL (0.0-0.7); Eosinophils % (Auto) 9.2 % (0.0-7.0); Lymphocytes # (Auto) 1.8 K/mcL (1.5-4.8); Mean Cell Volume 76.4 fL (80.0-100.0); Mean Corpuscular HGB Conc 32.7 g/dL (31.0-36.0); Monocytes # (Auto) 0.4 K/mcL (0.1-0.9); Monocytes % (Auto) 3.7 % (1.0-12.0); Platelet Count 496 K/mcL (140-440); RBC 3.84 M/mcL (4.00-5.20); Red Cell Distribution Width 16.8 % (11.5-14.5)
[2017-12-09 08:13] LABS: Blood Urea Nitrogen 45 mg/dl (8-23)
[2017-12-09] MEDS: CALCIUM CARBONATE 500 MG TAB.CHEW CHEWED SCH ×3 (09:54→17:37)
[2017-12-09] MEDS: ASPIRIN 81 MG TAB.CHEW PO SCH (09:55)
[2017-12-09] MEDS: ENOXAPARIN 30 MG/0.3 ML SYRINGE SQ SCH (09:55)
[2017-12-09] MEDS: POTASSIUM CHLORIDE 10 MEQ TABLET PO SCH ×2 (09:55→17:38)
[2017-12-09] MEDS: LACTOBACILLUS 1 CAPSULE PO SCH ×2 (09:55→21:27)
[2017-12-09] MEDS: VITAMIN D3 1,000 UNIT TABLET PO SCH (09:55)
[2017-12-09] MEDS: CARVEDILOL 3.125 MG TABLET PO SCH ×2 (09:55→17:38)
[2017-12-09] MEDS: FLUoxetine HCL 20 MG CAPSULE PO SCH (09:55)
[2017-12-09] MEDS: SILVER SULFADIAZINE CREAM.TOP 25GM TOPICAL SCH (09:56)
[2017-12-09] MEDS: cefTRIAXone 1 GM VIAL IV SCH (10:09)
--- NOTE | 2017-12-09 16:25 | Internal Med Progress Note ---
Medical - PN: Subj Patient information: Note initiated : 12/09/17 at 4:23 pm Service Date, if different from initiated Date: [] Patient: Rabia Seals 87 y/o F admitted on 12/06/[address] Calero For Eval Of Lt Calf. Chief Complaint: f/u cellulitis, leg wounds Interval history: 12/06-The patient is an 87-year-old female with a history of congestive heart failure with chronic lower extremity edema, coronary artery disease, chronic kidney disease with history of acute renal failure who is transferred to the emergency department for further evaluation from wound care clinic. History is obtained in reviewing old records, which are obtained and summarized, and interviewing the patient, the patient can only give limited history with underlying dementia. Patient's been followed in the wound care clinic for venous stasis and chronic edema issues. Since the last visit, she has had progressive erythema of the left lower extremity greater than the right lower extremity. Patient is unable to provide any history with her underlying dementia. She does not know why she is in the emergency department. She does complain of pain in her legs currently. Does not think she's been having any fevers. Does not know how long her legs up and looking as they are. She is unsure if she's ever had anything similar in the past. In reviewing records, the patient is generally wheelchair-bound with her legs being dependent most of the day. She resists sitting in a recliner or in bed to keep her legs elevated to help with edema. She specifically denies any headache, sore throat, shortness of breath, nausea, vomiting, abdominal pain. She does complain of occasional pain in her hands and ankles associated with rheumatoid arthritis. She does complain of pain particularly in her left leg is noted. Evaluation in the ED was notable for negative duplex for DVT. She is being admitted for treatment of cellulitis. 12/07-seen on rounds this morning. Does not remember me. Does not know why she is in the hospital. Currently not complaining of any pain in her legs. Seems surprised that she has any issue with her legs. Otherwise been stable, pleasant , tolerating antibiotics and treatments. 12/08-seen with Dr. Calero during dressing changes. Patient without complaints. Knows she is in the hospital, does not know why she is here, does not recall me from prior visits. Legs are improving with dressing changes, diuresis and antibiotics. 12/09-no new complaints today. No complaints of leg pain, though tender when examining them. Continues with dressing changes. Diuresis stopped today due to rising creatinine. Otherwise stable. - Constitutional Vitals: Vital Signs Temp Pulse Resp BP Pulse Ox 99.3 F H 74 18 128/58 92 12/09/17 15:12 12/09/17 04:00 12/09/17 15:12 12/09/17 15:12 12/09/17 15:12 Period Temp Pulse Resp BP Sys/Marino Pulse Ox Last 24 Hr 95.3 F-99.3 F 67-74 16-20 104-132/46-74 91-96 Intake and Output 12/09/17 12/09/17 12/09/17 05:59 13:59 21:59 Intake Total 204 / 204 694 / 694 54 / 54 Output Total 300 / 300 500 / 500 Balance -96 / -96 194 / 194 54 / 54 Intake & Output: Intake & Output 12/09/17 12/09/17 12/09/17 05:59 13:59 21:59 Intake Total 204 / 204 694 / 694 54 / 54 Output Total 300 / 300 500 / 500 Balance -96 / -96 194 / 194 54 / 54 Intake: IV 54 / 54 54 / 54 54 / 54 Cleocin 600 mg In Dextrose 5% 54 / 54 54 / 54 54 / 54 in Water 50 ml @ 100 mls/hr IV Q8H [facility] Rx#:[id number] Oral 150 / 150 640 / 640 Output: Void Amount 300 / 300 500 / 500 Other: Meal Breakfast Percent of Meal Consumed 100% Feeding Ability Assist with Tray Set Up Stool Size Moderate Stool Color Yellow Stool Consistency Soft # of times incontinent of 1 1 Bowels Exam: General: Sitting in bed, sleeping, arouses, no acute distress Chest: Clear, no rales Cardiovascular: Regular, murmur unchanged Abdomen: Soft, no apparent tenderness Extremities: Legs wrapped, decreased pedal edema, continues to have sloughing of epidermal layer has edema decreases. Erythema continues to fade. Neuro: Alert, oriented to self, vaguely recalls me from seeing her yesterday. Medical - PN: Obj Da - Labs CBC & Chem 7: 12/09/17 06:23 12/09/17 06:23 Labs: Abnormal Lab Results 12/09/17 12/09/17 12/08/17 06:23 06:23 05:11 WBC 11.6 H RBC 3.84 L Hgb 9.6 L Hct 29.4 L MCV 76.4 L MCH 25.0 L RDW 16.8 H Plt Count 496 H MPV 6.9 L Eos % (Auto) 9.2 H Gran # 8.2 H Eos # (Auto) 1.1 H Sodium 132 L Chloride 95 L Carbon Dioxide BUN 45 H Creatinine 1.7 H Prealbumin 7.2 L 12/08/17 12/07/17 05:11 05:03 WBC RBC Hgb Hct MCV MCH RDW Plt Count MPV Eos % (Auto) Gran # Eos # (Auto) Sodium 132 L 132 L Chloride 95 L Carbon Dioxide 21 L BUN 37 H 25 H Creatinine 1.7 H 1.6 H Prealbumin Meds: Medications Acetaminophen (Tylenol) 650 mg PO Q6HP PRN PRN Reason: PAIN/FEVER > 101 Hydrocodone Bitart/Acetaminophen (Energy 5/325mg) 0.5 - 1 tab PO Q4-6HP PRN PRN Reason: Pain Last Admin: 12/08/17 21:23 Dose: 0.5 tab Aspirin (Aspirin) 81 mg PO DAILY [facility] Last Admin: 12/09/17 09:55 Dose: 81 mg Calcium Carbonate/Glycine (Tums) 1,000 mg CHEWED TIDCC [facility] Last Admin: 12/09/17 13:58 Dose: Not Given Carvedilol (Coreg) 6.25 mg PO BIDCC [facility] Last Admin: 12/09/17 09:55 Dose: 6.25 mg Ceftriaxone Sodium (Rocephin) 1 gm IV Q24H [facility] Last Admin: 12/09/17 10:09 Dose: 1 gm Enoxaparin Sodium (Lovenox) 30 mg SQ DAILY [facility] Last Admin: 12/09/17 09:55 Dose: 30 mg Fluoxetine HCl (Prozac) 20 mg PO DAILY [facility] Last Admin: 12/09/17 09:55 Dose: 20 mg Clindamycin Phosphate 600 mg/ (Dextrose) 54 mls @ 100 mls/hr IV Q8H [facility] Last Infusion: 12/09/17 15:32 Dose: Infused Lactobacillus Rhamnosus (Culturelle) 1 cap PO BID [facility] Last Admin: 12/09/17 09:55 Dose: 1 cap Magnesium Hydroxide (Milk Of Magnesia) 30 ml PO DAILYP PRN PRN Reason: Constipation Ondansetron HCl (Zofran) 4 mg IV Q6HP PRN PRN Reason: Nausea And Vomiting Potassium Chloride (Kdur) 10 meq PO BIDCC [facility] Last Admin: 12/09/17 09:55 Dose: 10 meq Silver Sulfadiazine (Silvadene) 1 dose TOPICAL DAILY [facility] Last Admin: 12/09/17 09:56 Dose: 1 dose Sodium Chloride (Saline Flush) 10 ml IV Q8 [facility] Last Admin: 12/09/17 14:49 Dose: 10 ml Vitamin D (Vitamin D3) 1,000 unit PO QDAY [facility] Last Admin: 12/09/17 09:55 Dose: 1,000 unit Medical - PN: A/P (1) Cellulitis Status: Acute Current Visit: Yes (2) Edema of lower extremity Problem details: wears ENEDINA hose daily Status: Chronic Current Visit: Yes (3) CHF (congestive heart failure) Status: Chronic Current Visit: Yes (4) Chronic kidney disease Status: Chronic Current Visit: Yes (5) Dementia Status: Chronic Current Visit: Yes - Narrative A/P Narrative: 87-year-old female with a history of chronic lower extremity edema with venous insufficiency, pulmonary hypertension, congestive heart failure, severe dementia , presents to the ED from wound care clinic with erythema of the lower extremities worsening in the last 2 weeks. Cellulitis of the left greater than right lower extremities. In the setting of chronic lower extremity edema, failed outpatient treatment. Improving with IV antibiotics and wound care. Plan: Continue with clindamycin and ceftriaxone. Continue to elevate lower extremities, continue with diuresis. PT/OT, mobilize, continue wound care. Congestive heart failure. Echocardiogram with low normal LV systolic function, however evidence of pulmonary hypertension, RV volume overload and right-sided failure. Edema is clinically improving Plan: Continue with carvedilol, hold IV furosemide giving rising creatinine, follow creatinine Chronic kidney disease. Follow creatinine with diuresis. Holding diuretics today Plan: Trend creatinine. Urinary tract infection. Abnormal urinalysis, marked leukocyte esterase, but not much on microscopic. Strep and low growth enterococcus on preliminary culture; final sensitivities of enterococcus remain pending on afternoon. Suspect streptococcus as the primary pathogen (>100K CFU/mL). Plan: Continue with ceftriaxone, follow-up final sensitivities. Dementia. Patient risk for delirium. No behavioral disturbances currently. Plan: Supportive care.
[2017-12-09] MEDS: AMPICILLIN SODIUM 1 GM in 0.9 % SODIUM CHLORIDE 50 ML IV SCH (18:15)
--- NOTE | 2017-12-09 18:22 | General Surgery Progress Note ---
Subjective Narrative: Note initiated : 12/09/17 at 6:20 pm Service Date, if different from initiated Date: [] Patient: Rabia Seals 87 y/o F admitted on 12/06/[address] Calero For Eval Of Lt Calf. Chief Complaint: []Patient seen , Progress reviewed with Lawanda YOO and with Dr. Jacobo, Hospitalist Physician. Objective Temp Pulse Resp BP Pulse Ox 99.3 F H 74 18 128/58 92 12/09/17 15:12 12/09/17 04:00 12/09/17 15:12 12/09/17 15:12 12/09/17 15:12 Rising creatinine to 1.7. Diuresis on hold. Severe hypoproteinemia. Prealbumin of 7 Leg wounds care and dressing changes ongoing. - Additional Data Intake & Output - Last 24 hours: Intake & Output 12/07/17 12/08/17 12/09/17 12/10/17 05:59 05:59 05:59 05:59 Intake Total 1908 / 1908 1232 / 1232 312 / 312 1898 / 1898 Output Total 526 / 526 950 / 950 1102 / 1102 900 / 900 Balance 1382 / 1382 282 / 282 -790 / -790 998 / 998 Weight 189 lb 188 lb 8 oz 184 lb - Labs 12/09/17 06:23 12/09/17 06:23 Diabetes panel 12/09/17 Range/Units 06:23 Sodium 132 L (133-145) mmol/L Potassium 4.5 (3.3-5.1) mmol/L Chloride 95 L (96-108) mmol/L Carbon Dioxide 25 (22-30) mmol/L BUN 45 H (8-23) mg/dl Creatinine 1.7 H (0.6-1.1) mg/dl Glucose 95 (70-105) mg/dL Calcium 8.9 (8.6-10.4) mg/dl Calcium panel 12/09/17 Range/Units 06:23 Calcium 8.9 (8.6-10.4) mg/dl Pituitary panel 12/09/17 Range/Units 06:23 Sodium 132 L (133-145) mmol/L Potassium 4.5 (3.3-5.1) mmol/L Chloride 95 L (96-108) mmol/L Carbon Dioxide 25 (22-30) mmol/L BUN 45 H (8-23) mg/dl Creatinine 1.7 H (0.6-1.1) mg/dl Glucose 95 (70-105) mg/dL Calcium 8.9 (8.6-10.4) mg/dl Adrenal panel 12/09/17 Range/Units 06:23 Sodium 132 L (133-145) mmol/L Potassium 4.5 (3.3-5.1) mmol/L Chloride 95 L (96-108) mmol/L Carbon Dioxide 25 (22-30) mmol/L BUN 45 H (8-23) mg/dl Creatinine 1.7 H (0.6-1.1) mg/dl Glucose 95 (70-105) mg/dL Calcium 8.9 (8.6-10.4) mg/dl Assessment and Plan (1) Dermatitis Status: Acute Current Visit: Yes - Narrative A/P Narrative: Assessment: Stable from wound care point at this time. Severe hypoproteinemia. Prealbumin 0f 7. Plan: Continue current wound care. Start OXANDRIN 5 mg PO BID for hypoalbuminemia. - Time Spent With Patient Total time spent is greater than 50% in coordination of care (as documented) at patient's floor/unit and/or counseling patient: less than 15 minutes
[2017-12-09] MEDS: OXANDROLONE 2.5 MG TABLET PO SCH (21:27)
[2017-12-09] MEDS ORDERED: CLINDAMYCIN 600 MG/4 ML VIAL ONE (22:28)
[2017-12-10] MEDS: AMPICILLIN SODIUM 1 GM in 0.9 % SODIUM CHLORIDE 50 ML IV SCH ×3 (00:38→11:45)
[2017-12-10] MEDS: 0.9 % SODIUM CHLORIDE 10 ML SYRINGE IV SCH ×2 (05:33→15:02)
[2017-12-10] MEDS: CLINDAMYCIN 600 MG in DEXTROSE 5% IN WATER 50 ML IV SCH ×2 (05:33→15:02)
[2017-12-10 07:28] LABS: Blood Urea Nitrogen 36 mg/dl (8-23)
[2017-12-10] MEDS: POTASSIUM CHLORIDE 10 MEQ TABLET PO SCH (09:22)
[2017-12-10] MEDS: CARVEDILOL 3.125 MG TABLET PO SCH (09:22)
[2017-12-10] MEDS: CALCIUM CARBONATE 500 MG TAB.CHEW CHEWED SCH ×2 (09:22→12:31)
[2017-12-10] MEDS: ASPIRIN 81 MG TAB.CHEW PO SCH (09:28)
[2017-12-10] MEDS: VITAMIN D3 1,000 UNIT TABLET PO SCH (09:28)
[2017-12-10] MEDS: ENOXAPARIN 30 MG/0.3 ML SYRINGE SQ SCH (09:28)
[2017-12-10] MEDS: LACTOBACILLUS 1 CAPSULE PO SCH (09:28)
[2017-12-10] MEDS: FLUoxetine HCL 20 MG CAPSULE PO SCH (09:28)
[2017-12-10] MEDS: SILVER SULFADIAZINE CREAM.TOP 25GM TOPICAL SCH (09:29)
[2017-12-10] MEDS: HYDROcodone/APAP 5/325MG TABLET PO PRN (11:45)
[2017-12-10] MEDS: OXANDROLONE 2.5 MG TABLET PO SCH (11:45)
--- NOTE | 2017-12-10 14:13 | Internal Med Progress Note ---
Medical - PN: Subj Patient information: Note initiated : 12/10/17 at 1:42 pm Service Date, if different from initiated Date: [] Patient: Rabia Seals 87 y/o F admitted on 12/06/[address] Calero For Eval Of Lt Calf. Chief Complaint: follow-up cellulitis/leg wounds Interval history: 12/06-The patient is an 87-year-old female with a history of congestive heart failure with chronic lower extremity edema, coronary artery disease, chronic kidney disease with history of acute renal failure who is transferred to the emergency department for further evaluation from wound care clinic. History is obtained in reviewing old records, which are obtained and summarized, and interviewing the patient, the patient can only give limited history with underlying dementia. Patient's been followed in the wound care clinic for venous stasis and chronic edema issues. Since the last visit, she has had progressive erythema of the left lower extremity greater than the right lower extremity. Patient is unable to provide any history with her underlying dementia. She does not know why she is in the emergency department. She does complain of pain in her legs currently. Does not think she's been having any fevers. Does not know how long her legs up and looking as they are. She is unsure if she's ever had anything similar in the past. In reviewing records, the patient is generally wheelchair-bound with her legs being dependent most of the day. She resists sitting in a recliner or in bed to keep her legs elevated to help with edema. She specifically denies any headache, sore throat, shortness of breath, nausea, vomiting, abdominal pain. She does complain of occasional pain in her hands and ankles associated with rheumatoid arthritis. She does complain of pain particularly in her left leg is noted. Evaluation in the ED was notable for negative duplex for DVT. She is being admitted for treatment of cellulitis. 12/07-seen on rounds this morning. Does not remember me. Does not know why she is in the hospital. Currently not complaining of any pain in her legs. Seems surprised that she has any issue with her legs. Otherwise been stable, pleasant , tolerating antibiotics and treatments. 12/08-seen with Dr. Calero during dressing changes. Patient without complaints. Knows she is in the hospital, does not know why she is here, does not recall me from prior visits. Legs are improving with dressing changes, diuresis and antibiotics. 12/09-no new complaints today. No complaints of leg pain, though tender when examining them. Continues with dressing changes. Diuresis stopped today due to rising creatinine. Otherwise stable. 12/10-Remains stable. Sitting up in wheelchair, was been refusing to get back to bed. Legs are propped up on a chair. Seen during dressing changes today. Patient without any complaints except for tenderness at her legs during dressing change - Constitutional Vitals: Vital Signs Temp Pulse Resp BP Pulse Ox 97 F 66 16 154/74 97 12/10/17 11:17 12/10/17 07:49 12/10/17 11:17 12/10/17 11:17 12/10/17 11:17 Period Temp Pulse Resp BP Sys/Marino Pulse Ox Last 24 Hr 96.6 F-99.3 F 66-80 16-22 110-154/50-74 91-97 Intake and Output 12/09/17 12/10/17 12/10/17 21:59 05:59 13:59 Intake Total 2003 204 / 204 394 / 394 Output Total 400 / 400 Balance 1604 / 1604 203 / 203 394 / 394 Weight 182 lb 8 oz Intake & Output: Intake & Output 12/09/17 12/10/17 12/10/17 21:59 05:59 13:59 Intake Total 2003 204 / 204 394 / 394 Output Total 400 / 400 Balance 1604 / 1604 203 / 203 394 / 394 Weight 182 lb 8 oz Intake: IV 104 / 104 104 / 104 154 / 154 Ampicillin 1 gm In Sodium 50 / 50 50 / 50 100 / 100 Chloride 0.9% 50 ml @ 100 mls/ hr IV Q6H [facility] Rx#:[id number] Cleocin 600 mg In Dextrose 5% 54 / 54 54 / 54 54 / 54 in Water 50 ml @ 100 mls/hr IV Q8H [facility] Rx#:[id number] Oral 1900 / 1900 100 / 100 240 / 240 Output: Void Amount 400 / 400 # of times incontinent of urine Other: Meal Dinner Breakfast Percent of Meal Consumed 100% 100% Stool Size Moderate Moderate Stool Color Brown Brown Yellow Stool Consistency Soft Loose # Voids 1 # of times incontinent of 1 1 Bowels Medical - PN: Obj Da - Labs CBC & Chem 7: 12/09/17 06:23 12/10/17 05:31 Labs: Abnormal Lab Results 12/10/17 12/09/17 12/09/17 05:31 06:23 06:23 WBC 11.6 H RBC 3.84 L Hgb 9.6 L Hct 29.4 L MCV 76.4 L MCH 25.0 L RDW 16.8 H Plt Count 496 H MPV 6.9 L Eos % (Auto) 9.2 H Gran # 8.2 H Eos # (Auto) 1.1 H Sodium 132 L Chloride 95 L Carbon Dioxide BUN 36 H 45 H Creatinine 1.3 H 1.7 H Calcium 8.5 L Prealbumin 12/08/17 12/08/17 05:11 05:11 WBC RBC Hgb Hct MCV MCH RDW Plt Count MPV Eos % (Auto) Gran # Eos # (Auto) Sodium 132 L Chloride Carbon Dioxide 21 L BUN 37 H Creatinine 1.7 H Calcium Prealbumin 7.2 L Meds: Medications Acetaminophen (Tylenol) 650 mg PO Q6HP PRN PRN Reason: PAIN/FEVER > 101 Hydrocodone Bitart/Acetaminophen ([place] 5/325mg) 0.5 - 1 tab PO Q4-6HP PRN PRN Reason: Pain Last Admin: 12/10/17 11:45 Dose: 1 tab Aspirin (Aspirin) 81 mg PO DAILY [facility] Last Admin: 12/10/17 09:28 Dose: 81 mg Calcium Carbonate/Glycine (Tums) 1,000 mg CHEWED TIDCC [facility] Last Admin: 12/10/17 12:31 Dose: 1,000 mg Carvedilol (Coreg) 6.25 mg PO BIDCC [facility] Last Admin: 12/10/17 09:22 Dose: 6.25 mg Enoxaparin Sodium (Lovenox) 30 mg SQ DAILY [facility] Last Admin: 12/10/17 09:28 Dose: 30 mg Fluoxetine HCl (Prozac) 20 mg PO DAILY [facility] Last Admin: 12/10/17 09:28 Dose: 20 mg Clindamycin Phosphate 600 mg/ (Dextrose) 54 mls @ 100 mls/hr IV Q8H [facility] Last Infusion: 12/10/17 06:06 Dose: Infused Ampicillin Sodium 1 gm/ Sodium (Chloride) 50 mls @ 100 mls/hr IV Q6H [facility] Last Infusion: 12/10/17 12:30 Dose: Infused Lactobacillus Rhamnosus (Culturelle) 1 cap PO BID [facility] Last Admin: 12/10/17 09:28 Dose: 1 cap Magnesium Hydroxide (Milk Of Magnesia) 30 ml PO DAILYP PRN PRN Reason: Constipation Ondansetron HCl (Zofran) 4 mg IV Q6HP PRN PRN Reason: Nausea And Vomiting Oxandrolone (Oxandrin) 5 mg PO BID [facility] Last Admin: 12/10/17 11:45 Dose: 5 mg Potassium Chloride (Kdur) 10 meq PO BIDCC [facility] Last Admin: 12/10/17 09:22 Dose: 10 meq Silver Sulfadiazine (Silvadene) 1 dose TOPICAL DAILY [facility] Last Admin: 12/10/17 09:29 Dose: 1 dose Sodium Chloride (Saline Flush) 10 ml IV Q8 [facility] Last Admin: 12/10/17 05:33 Dose: 10 ml Vitamin D (Vitamin D3) 1,000 unit PO QDAY [facility] Last Admin: 12/10/17 09:28 Dose: 1,000 unit Medical - PN: A/P - Time Spent With Patient Total time spent is greater than 50% in coordination of care (as documented) at patient's floor/unit and/or counseling patient: (1) Cellulitis Status: Acute Current Visit: Yes (2) Edema of lower extremity Problem details: wears ENEDINA hose daily Status: Chronic Current Visit: Yes (3) CHF (congestive heart failure) Status: Chronic Current Visit: Yes (4) Chronic kidney disease Status: Chronic Current Visit: Yes (5) Dementia Status: Chronic Current Visit: Yes
--- NOTE | 2017-12-10 15:47 | Discharge Summary ---
Medical - DS: Prov Patient information: Note initiated : 12/10/17 at 3:43 pm Service Date, if different from initiated Date: [] Patient: Rabia Seals 87 y/o F admitted on 12/06/[address] Calero For Eval Of Lt Calf. Date of admission: 12/06/17 15:35 Discharge date: 12/10/17 Primary care physician: Krysten Romero Admitting clinician: Zainab Jacobo Consults: 12/06/17 13:29 Consult to Physician [CONS] Stat Comment: Consulting Provider: Zainab Jacobo Reason For Exam: Physician to Consult 12/06/17 15:46 Consult to Physician [CONS] Routine Comment: Consulting Provider: Ned Calero Reason For Exam: Physician to Consult Discharging clinician: Zainab Jacobo Medical - DS: Meds - Discharge Medications Active and Home Medications: Home Medications Furosemide [Lasix] 40 mg PO HS 04/17/16 [History Confirmed 12/09/17 Last Taken 07/12/17 08:00] cholecalciferol (vitamin D3) 1,000 unit tablet 1,000 unit PO QDAY 90 Days #90 tab 08/10/16 [History Confirmed 12/06/17 Last Taken 07/12/17 08:00] aspirin 81 mg tablet,delayed release 81 mg PO DAILY #90 tab 09/14/16 [Rx Confirmed 12/09/17 Last Taken 07/12/17 08:00] Acetaminophen [Tylenol] 650 mg PO Q6HP PRN tab 07/20/17 [Rx Confirmed 12/06/17 Last Taken Unknown] Calcium Carbonate [Tums] 1,000 mg CHEWED TIDCC 07/20/17 [Rx Confirmed 12/09/17 Last Taken Unknown] Carvedilol [Coreg] 6.25 mg PO BIDCC #1 tab 07/20/17 [Rx Confirmed 12/09/17 Last Taken Unknown] HYDROcodone/APAP 5/325MG [[place] 5-325Mg] 0.5 - 1 tab PO Q4-6HP PRN #20 07/20/17 [Rx Confirmed 12/09/17 Last Taken Unknown] Loperamide [Imodium] 2 mg PO Q6H PRN #30 cap 07/20/17 [Rx Confirmed 12/06/17 Last Taken Unknown] Magnesium Hydroxide [Milk of Magnesia] 30 ml PO DAILYP PRN 07/20/17 [Rx Confirmed 12/06/17 Last Taken Unknown] Ondansetron HCl [Zofran ODT] 4 mg SL Q4-6HP PRN #1 tab 07/20/17 [Rx Confirmed Last Taken Unknown] potassium chloride ER 10 mEq tablet,extended release 10 meq PO BID #30 tab 08/26 [Rx Confirmed 12/09/17 Last Taken Unknown] FLUoxetine HCL [PROzac] 20 mg PO DAILY 12/06/17 [History Confirmed 12/06/17 Last Taken Unknown] Furosemide [Lasix] 60 mg PO DAILY 12/06/17 [History Confirmed 12/09/17 Last Taken Unknown] Medical - DS: Hosp Hospital course: 12/06-The patient is an 87-year-old female with a history of advanced dementia, congestive heart failure with chronic lower extremity edema, coronary artery disease, chronic kidney disease with history of acute renal failure who is transferred to the emergency department for further evaluation from wound care clinic. Patient's been followed in the wound care clinic for venous stasis and chronic edema issues. Since the last visit, she has had progressive erythema of the left lower extremity greater than the right lower extremity. Patient is unable to provide any history with her underlying dementia. She does not know why she is in the emergency department. She does complain of pain in her legs currently. Does not think she's been having any fevers. Does not know how long her legs up and looking as they are. She is unsure if she's ever had anything similar in the past. In reviewing records, the patient is generally wheelchair-bound with her legs being dependent most of the day. She resists sitting in a recliner or in bed to keep her legs elevated to help with edema. She specifically denies any headache, sore throat, shortness of breath, nausea, vomiting, abdominal pain. She does complain of occasional pain in her hands and ankles associated with rheumatoid arthritis. She does complain of pain particularly in her left leg is noted. Evaluation in the ED was notable for negative duplex for DVT. She is being admitted for treatment of cellulitis. 12/07-seen on rounds this morning. Does not remember me. Does not know why she is in the hospital. Currently not complaining of any pain in her legs. Seems surprised that she has any issue with her legs. Otherwise been stable, pleasant , tolerating antibiotics and treatments. 12/08-seen with Dr. Calero during dressing changes. Patient without complaints. Knows she is in the hospital, does not know why she is here, does not recall me from prior visits. Legs are improving with dressing changes, diuresis and antibiotics. 12/09-no new complaints today. No complaints of leg pain, though tender when examining them. Continues with dressing changes. Diuresis stopped today due to rising creatinine. Otherwise stable. 12/10-Remains stable. Sitting up in wheelchair, was been refusing to get back to bed. Legs are propped up on a chair. Seen during dressing changes today. Patient without any complaints except for tenderness at her legs during dressing change. Will discharge to swing bed for further skilled wound care and IV antibiotics. The patient's urine culture shows Streptococcus as well as enterococcus. She was transitioned ampicillin yesterday. Final results of culture remains pending at the time of transition, though she is clinically improving. Discharge diagnosis: Bilateral lower extremity cellulitis Secondary discharge diagnosis: Bilateral lower extremity edema Congestive heart failure Advanced dementia Chronic kidney disease - Time Spent with Patient Total time spent providing and/or coordinating discharge services: Greater than 30 minutes Medical - DS: Exam - Constitutional Vitals: Vital Signs Temp Pulse Resp BP Pulse Ox 12/10/17 11:17 97 F 16 154/74 97 12/10/17 08:00 96.6 F L 16 142/58 94 12/10/17 07:49 98.2 F 66 16 132/50 94 12/10/17 07:23 70 12/10/17 04:00 98.2 F 70 16 128/52 92 12/09/17 23:35 98.3 F 18 112/58 91 12/09/17 18:44 97.5 F 80 22 110/56 96 Intake and Output 12/10/17 12/10/17 12/10/17 05:59 13:59 21:59 Intake Total 204 / 204 394 / 394 Output Total Balance 203 / 203 394 / 394 Intake: IV 104 / 104 154 / 154 Ampicillin 1 gm In Sodium 50 / 50 100 / 100 Chloride 0.9% 50 ml @ 100 mls/ hr IV Q6H [facility] Rx#:[id number] Cleocin 600 mg In Dextrose 5% 54 / 54 54 / 54 in Water 50 ml @ 100 mls/hr IV Q8H [facility] Rx#:[id number] Oral 100 / 100 240 / 240 Output: # of times incontinent of urine Other: Meal Breakfast Percent of Meal Consumed 100% Stool Size Moderate Stool Color Brown Yellow Stool Consistency Loose # of times incontinent of 1 Bowels Weight 182 lb 8 oz Patient Weight 12/11/17 05:59 Weight 182 lb 8 oz Additional comments: General: Sitting in wheelchair, no acute distress, legs propped up on a folding chair to elevate them. Chest: Clear, no rales Cardiovascular: Regular Abdomen: Soft, nontender Extremity: Continued decrease in edema and erythema of the left greater than right lower extremity. Continued flaking of cornified epithelium as edema has regressed. Tenderness to touch, no crepitus. Significantly improved from time of admission. Neuro: Alert to self, does not recall me, does not recall while she is in the hospital. Medical - DS: Data Labs on day of discharge: Labs from last 24 hours 12/10/17 05:31 Sodium 135 Potassium 4.3 Chloride 101 Carbon Dioxide 23 Anion Gap 11.0 BUN 36 H Creatinine 1.3 H GFR Calculation 37 Glucose 75 Calcium 8.5 L Preliminary micro results at discharge 12/06/17 11:25 Blood Culture - Preliminary Blood 12/06/17 11:33 Blood Culture - Preliminary Blood - Impressions Echocardiogram, 12/07/2017 Left ventricle is normal in size, mild to moderate concentric LVH. Low normal ventricular systolic function, estimated ejection fraction 50-55%. Right ventricle mildly dilated with paradoxical septal motion consistent with right ventricular volume overload. Doppler suggests severe pulmonary hypertension and dilated IVC suggest increased RA pressure. The atria are moderately dilated. Moderate to severe posterior mitral annular calcification, moderate mitral regurgitation, moderate aortic sclerosis. Medical - DS: A/P - Patient/Caregiver Discharge Instructions Activity: as instructed (keep legs elevated) Diet: Low Sodium (2gm) Additional Instructions: You are being discharged to swing bed for further antibiotics, wound care and strengthening with PT and OT. - Problem Maintenance (1) Cellulitis Status: Acute Qualifiers: Site of cellulitis: extremity Site of cellulitis of extremity: lower extremity Laterality: unspecified laterality Qualified Code(s): L03.119 - Cellulitis of unspecified part of limb (2) Edema of lower extremity Status: Chronic Comment: wears ENEDINA hose daily (3) CHF (congestive heart failure) Status: Chronic Qualifiers: Qualified Code(s): I50.42 - Chronic combined systolic (congestive) and diastolic (congestive) heart failure (4) Chronic kidney disease Status: Chronic Qualifiers: Chronic kidney disease stage: stage 3 (moderate) Qualified Code(s): N18.3 - Chronic kidney disease, stage 3 (moderate) (5) Dementia Status: Chronic Qualifiers: Dementia type: unspecified type Dementia behavioral disturbance: without behavioral disturbance Qualified Code(s): F03.90 - Unspecified dementia without behavioral disturbance - Follow up Plan Follow up with: Krysten Romero, [facility], [facility] [Primary Care Provider] - Disposition: [facility] Swing Bed Prognosis: Fair Rehab Potential: Fair I certify that the patient requires SNF services: Yes Overall status at discharge: patient is not back to baseline
== END 2017-12-10 15:50 | disposition other institution (70) | DRG 603 ==
LOC: ED 10:54 → MEDSUR 15:20
PROVIDERS: ADMIT Internal Medicine; ATTEND Internal Medicine

== ENCOUNTER 2017-12-10 15:45 | Inpatient (IN) ==
[2017-12-10] MEDS ORDERED: LOPERAMIDE 2 MG CAPSULE PO PRN (16:31)
[2017-12-10] MEDS ORDERED: ACETAMINOPHEN 325 MG TABLET PO PRN (16:31)
[2017-12-10] MEDS ORDERED: MAGNESIUM HYDROXIDE 30 ML ORAL.SUSP PO PRN ×2 (16:31)
[2017-12-10] MEDS ORDERED: ONDANSETRON ODT 4 MG TABLET SL PRN (16:31)
[2017-12-10] MEDS ORDERED: CLINDAMYCIN 600 MG/4 ML VIAL IV SCH (16:45)
[2017-12-10] MEDS ORDERED: AMPICILLIN SODIUM 1 GM VIAL IV SCH (16:45)
[2017-12-10] MEDS: CARVEDILOL 3.125 MG TABLET PO SCH (17:51)
[2017-12-10] MEDS: CALCIUM CARBONATE 500 MG TAB.CHEW CHEWED SCH (17:51)
[2017-12-10] MEDS: 0.9 % SODIUM CHLORIDE 10 ML SYRINGE IV SCH ×2 (20:00→23:51)
[2017-12-10] MEDS: AMPICILLIN SODIUM 1 GM in 0.9 % SODIUM CHLORIDE 50 ML IV SCH (20:01)
[2017-12-10] MEDS: FUROSEMIDE 40 MG TABLET PO SCH (22:21)
[2017-12-10] MEDS: LACTOBACILLUS 1 CAPSULE PO SCH (22:21)
[2017-12-10] MEDS: POTASSIUM CHLORIDE 10 MEQ TABLET PO SCH (22:21)
[2017-12-10] MEDS: OXANDROLONE 2.5 MG TABLET PO SCH (22:22)
[2017-12-10] MEDS: CLINDAMYCIN 600 MG in DEXTROSE 5% IN WATER 50 ML IV SCH (23:51)
[2017-12-11] MEDS: AMPICILLIN SODIUM 1 GM in 0.9 % SODIUM CHLORIDE 50 ML IV SCH ×4 (00:24→17:53)
[2017-12-11] MEDS: 0.9 % SODIUM CHLORIDE 10 ML SYRINGE IV SCH ×6 (05:46→22:23)
[2017-12-11] MEDS: CLINDAMYCIN 600 MG in DEXTROSE 5% IN WATER 50 ML IV SCH ×3 (07:18→22:21)
[2017-12-11] MEDS: CALCIUM CARBONATE 500 MG TAB.CHEW CHEWED SCH ×3 (09:55→17:53)
[2017-12-11] MEDS: LACTOBACILLUS 1 CAPSULE PO SCH ×2 (10:10→22:22)
[2017-12-11] MEDS: ASPIRIN 81 MG TAB.CHEW PO SCH (10:10)
[2017-12-11] MEDS: CARVEDILOL 3.125 MG TABLET PO SCH ×2 (10:10→17:53)
[2017-12-11] MEDS: VITAMIN D3 1,000 UNIT TABLET PO SCH (10:10)
[2017-12-11] MEDS: ENOXAPARIN 30 MG/0.3 ML SYRINGE SQ SCH (10:10)
[2017-12-11] MEDS: POTASSIUM CHLORIDE 10 MEQ TABLET PO SCH ×2 (10:10→22:22)
[2017-12-11] MEDS: FLUoxetine HCL 20 MG CAPSULE PO SCH (10:10)
[2017-12-11] MEDS: OXANDROLONE 2.5 MG TABLET PO SCH ×2 (10:10→22:23)
[2017-12-11] MEDS: FUROSEMIDE 20 MG TABLET PO SCH (10:11)
[2017-12-11] MEDS: HYDROcodone/APAP 5/325MG TABLET PO PRN ×2 (12:32→14:18)
[2017-12-11] MEDS: SILVER SULFADIAZINE CREAM.TOP 25GM TOPICAL SCH (12:34)
--- NOTE | 2017-12-11 13:41 | Internal Med History&Physical ---
Medical - H&P: [facility] Patient information: Note initiated : 12/11/17 at 1:38 pm Service Date, if different from initiated Date: [] Patient: Rabia Seals 87 y/o F admitted on 12/10/17 for Cellulitis . Chief Complaint: BLE cellulitis, edema, wounds History of present illness: The patient's 87-year-old female with a history of chronic lower extremity edema , congestive heart failure, advanced dementia with poor memory, chronic kidney disease who was admitted to acute care secondary to worsening edema and cellulitis on her lower extremities. She underwent aggressive intravenous antibiotics and wound care as well as diuresis. History is obtained in reviewing old records, the patient is unable to provide any history. Patient still requires skilled therapies, intravenous antibiotics for treatment of cellulitis, wound care, PT and OT strengthening. She was transitioned and admitted to swing bed yesterday. Today the patient has no complaints except when directly queried does complain of some leg pain. She cannot recall if the pain is better or worse and it's been previously. She cannot recall that I have been caring for her for the last several days. Upon direct queries denies any chest pain, shortness of breath, abdominal pain, nausea or vomiting at this time. ROS unobtainable: due to mental status Medical - H&P: PMH Medical history: CHF (congestive heart failure) (Chronic) Chronic kidney disease Coronary artery disease, s/p MS 2006 Chronic lower extremity venous stasis and edema Pulmonary hypertension Rheumatoid arthritis Dementia History of chronic diarrhea, s/p colo 06/2017 Anemia H/O Cellulitis Vitamin D deficiency History of tobacco use, quit about 2006 Perforation of intestine (Resolved) H/O Acute kidney failure (Resolved) Venous stasis dermatitis of both lower extremities (Resolved) Volume depletion (Resolved) Surgical history: History of intestinal surgery (Chronic)-repair of duodenal perforation Hx of appendectomy (Chronic) S/P wrist surgery (Chronic), status post wrist fracture from fall in 2013 Pertinent family history: Unknown Arthritis Family/Other Hypertension, essential Migraines Daughter Liver failure, Onset Age: 53 Social history: The patient lives at assisted living. She is in a wheelchair most of the time and not ambulatory. She does not like to be in a recliner or to keep her legs elevated. She stopped smoking in 2006, she does not drink alcohol. Medical - H&P: Meds Home Medications Medication Instructions Recorded Confirmed Type Furosemide [Lasix] 40 mg PO HS 04/17/16 12/10/17 History cholecalciferol (vitamin D3) 1,000 1,000 unit PO QDAY 90 Days #90 tab 08/10/16 12/10/17 History unit tablet aspirin 81 mg tablet,delayed 81 mg PO DAILY #90 tab 09/14/16 12/10/17 Rx release Acetaminophen [Tylenol] 650 mg PO Q6HP PRN tab 07/20/17 12/10/17 Rx Calcium Carbonate [Tums] 1,000 mg CHEWED TIDCC 07/20/17 12/10/17 Rx Carvedilol [Coreg] 6.25 mg PO BIDCC #1 tab 07/20/17 12/10/17 Rx HYDROcodone/APAP 5/325MG [[place] 0.5 - 1 tab PO Q4-6HP PRN #20 07/20/17 12/10/17 Rx 5-325Mg] Loperamide [Imodium] 2 mg PO Q6H PRN #30 cap 07/20/17 12/10/17 Rx Magnesium Hydroxide [Milk of 30 ml PO DAILYP PRN 07/20/17 12/10/17 Rx Magnesia] Ondansetron HCl [Zofran ODT] 4 mg SL Q4-6HP PRN #1 tab 07/20/17 12/10/17 Rx potassium chloride ER 10 mEq 10 meq PO BID #30 tab 08/26/17 12/10/17 Rx tablet,extended release FLUoxetine HCL [Prozac] 20 mg PO DAILY 12/06/17 12/10/17 History Furosemide [Lasix] 60 mg PO DAILY 12/06/17 12/10/17 History 0.9 % Sodium Chloride [Saline 10 ml IV Q8 syringe 12/10/17 12/10/17 Rx Flush] Ampicillin Sodium [Ampicillin] 1 gm IV Q6H vial 12/10/17 12/10/17 Rx Clindamycin [Cleocin] 600 mg IV Q8H vial 12/10/17 12/10/17 Rx Enoxaparin [Lovenox] 30 mg SQ DAILY syringe 12/10/17 12/10/17 Rx Lactobacillus [Culturelle] 1 cap PO BID capsule 12/10/17 12/10/17 Rx Magnesium Hydroxide [Milk of 30 ml PO DAILYP PRN oral.susp 12/10/17 12/10/17 Rx Magnesia] Oxandrolone [Oxandrin] 5 mg PO BID tablet 12/10/17 12/10/17 Rx Silver Sulfadiazine [Silvadene] 1 dose TOPICAL DAILY cream.top 12/10/17 Rx Allergies Allergy/AdvReac Type Severity Reaction Status Date / Time No Known Drug Allergies Allergy Verified 12/06/17 11:02 Medical - H&P: Exam - Constitutional Vitals: Temp Pulse Resp BP Pulse Ox 98 F 70 16 111/50 90 12/11/17 07:25 12/10/17 23:04 12/11/17 07:25 12/11/17 07:25 12/11/17 07:25 Exam: General: Sleeping, arouses, is alert, pleasant, in no acute distress HEENT: Normocephalic. Pupils are equally. Sclera are anicteric. No conjunctival injection. Oropharynx is with moist mucous membranes, no lip or gum lesions. Tongue is midline. Neck: Supple, no meningismus. No thyromegaly. Chest: Clear to auscultation, no wheezes or rales. Respirations are unlabored Cardiovascular: Regular rate and rhythm, 2/6 systolic murmur present; no gallop or rub. Carotid pulses are 2+ without bruit, dorsalis pedis pulses 2+. There is 1+-2+ lower extremity edema. Abdomen: Soft, nontender without guarding or rebound. Active bowel sounds. No hepatosplenomegaly. Skin: Left lower extremity with fading erythema, regressing from proximal region. Marked improvement in dermal edema from time of acute care admission. Still some sloughing of cornified epithelium is edema has regressed. Mild tenderness to palpation, no crepitus. Right leg with less severe changes, improved edema, improved erythema. Musculoskeletal: Rheumatoid changes in the hands bilaterally. No cyanosis or clubbing. Neuro: Alert, oriented to person only, does not recall me from previous encounters, does not know she is in the hospital nor why she is currently being treated (does not know the condition). Cranial nerves II through XII grossly intact. Sensation intact to light touch. Poor short-term and long-term memory. Psychiatric: Poor/no insight. Medical - H&P: Reslt - Impressions 12/06/17 LE duplex IMPRESSION: Negative exam - no evidence of deep vein thrombosis. Echocardiogram, 12/07/2017 Left ventricle is normal in size, mild to moderate concentric LVH. Low normal ventricular systolic function, estimated ejection fraction 50-55%. Right ventricle mildly dilated with paradoxical septal motion consistent with right ventricular volume overload. Doppler suggests severe pulmonary hypertension and dilated IVC suggest increased RA pressure. The atria are moderately dilated. Moderate to severe posterior mitral annular calcification, moderate mitral regurgitation, moderate aortic sclerosis. Medical - H&P: A/P (1) Cellulitis Current visit: No Status: Acute (2) CHF (congestive heart failure) Current visit: No Status: Chronic (3) Lower extremity edema Current visit: No Status: Chronic (4) Chronic kidney disease Current visit: No Status: Chronic - Narrative A/P Narrative: 87-year-old medically complex and frail patient with ongoing need for skilled therapy for lower extremity edema and cellulitis and leg wounds. She is being admitted to swing bed for further antibiotic therapy, skilled wound care and skilled PT and OT. Cellulitis bilateral lower extremities, worse on the left than the right. She continues to slowly improve. Etiology is secondary to chronic lower extremity edema. She previously failed outpatient therapy, so high risk for relapse without further skilled therapies on swing bed. Plan: Admission to swing bed. Continue with clindamycin and ampicillin. Elevate lower extremities to reduce edema. Continue to diuresis as her renal function allows. Continue with local wound care, dressing changes as well as PT /OT. Congestive heart failure with low normal LV systolic function. Also with pulmonary hypertension and RV volume overload complicating diuresis for her lower extremity edema. He is partially preload dependent. She did clinically improve as an inpatient according to labs during that stay, however had worsening creatinine and aggressiveness of diuresis had to be decreased. On oral diuretic, will be followed closely, may need intermittent doses of intravenous diuretic as well. Plan: Continue with carvedilol, continue with oral diuretic, follow her creatinine, intake and output and exam, consider further intravenous diuresis if worsening edema. Urinary tract infection. Streptococcus (group B) and 30-40K CFU/mL enterococcus on culture. Final micro-from last admission results obtained, enterococcus is pansensitive. Patient is on ampicillin for both cellulitis and enterococcal/cryptococcal urinary tract infection. Chronic kidney disease. At worsening renal function with diuresis as an inpatient. We'll need to follow creatinine with oral diuretic. Plan: Trend creatinine. Dementia with profound memory loss. Generally pleasant, but remains at risk for delirium. Plan: Supportive care. Prophylaxis: Lovenox, dosed renally. CODE STATUS: DO NOT RESUSCITATE. Medical - H&P: Qual - VTE Deep Vein Thrombosis/Pulmonary Embolism Present on Admission: No
[2017-12-11] MEDS: FUROSEMIDE 40 MG TABLET PO SCH (22:22)
[2017-12-12] MEDS: AMPICILLIN SODIUM 1 GM in 0.9 % SODIUM CHLORIDE 50 ML IV SCH ×5 (00:48→23:49)
[2017-12-12] MEDS: HYDROcodone/APAP 5/325MG TABLET PO PRN ×2 (00:51→12:52)
[2017-12-12] MEDS: 0.9 % SODIUM CHLORIDE 10 ML SYRINGE IV SCH ×6 (05:38→23:49)
[2017-12-12] MEDS: CLINDAMYCIN 600 MG in DEXTROSE 5% IN WATER 50 ML IV SCH ×3 (06:07→21:39)
[2017-12-12 06:24] LABS: Blood Urea Nitrogen 31 mg/dl (8-23)
[2017-12-12] MEDS: FLUoxetine HCL 20 MG CAPSULE PO SCH (09:31)
[2017-12-12] MEDS: LACTOBACILLUS 1 CAPSULE PO SCH ×2 (09:31→21:38)
[2017-12-12] MEDS: VITAMIN D3 1,000 UNIT TABLET PO SCH (09:31)
[2017-12-12] MEDS: ENOXAPARIN 30 MG/0.3 ML SYRINGE SQ SCH (09:31)
[2017-12-12] MEDS: OXANDROLONE 2.5 MG TABLET PO SCH ×2 (09:31→21:38)
[2017-12-12] MEDS: CALCIUM CARBONATE 500 MG TAB.CHEW CHEWED SCH ×3 (09:31→17:56)
[2017-12-12] MEDS: CARVEDILOL 3.125 MG TABLET PO SCH ×2 (09:31→17:56)
[2017-12-12] MEDS: FUROSEMIDE 20 MG TABLET PO SCH (09:32)
[2017-12-12] MEDS: POTASSIUM CHLORIDE 10 MEQ TABLET PO SCH ×2 (09:32→21:38)
[2017-12-12] MEDS: ASPIRIN 81 MG TAB.CHEW PO SCH (09:32)
[2017-12-12] MEDS: SILVER SULFADIAZINE CREAM.TOP 25GM TOPICAL SCH (09:32)
--- NOTE | 2017-12-12 11:00 | Internal Med Progress Note ---
Medical - PN: Subj Patient information: Note initiated : 12/12/17 at 10:57 am Service Date, if different from initiated Date: [] Patient: Rabia Seals 87 y/o F admitted on 12/10/17 for Cellulitis . Chief Complaint: f/u cellulitis Interval history: Dec 11 The patient's 87-year-old female with a history of chronic lower extremity edema , congestive heart failure, advanced dementia with poor memory, chronic kidney disease who was admitted to acute care secondary to worsening edema and cellulitis on her lower extremities. She underwent aggressive intravenous antibiotics and wound care as well as diuresis. History is obtained in reviewing old records, the patient is unable to provide any history. Patient still requires skilled therapies, intravenous antibiotics for treatment of cellulitis, wound care, PT and OT strengthening. She was transitioned and admitted to swing bed yesterday. Dec 12 Complaining of itching/pruritus. On arms, thighs, trunk, back. No apparent rash. Skin feels dry, may be related to dermatitis from dry skin. When directly queried, does complain of some pain in her legs. Does not recall me from yesterday. - Constitutional Vitals: Vital Signs Temp Pulse Resp BP Pulse Ox 96.9 F L 73 18 110/52 93 12/11/17 19:05 12/11/17 19:05 12/11/17 19:05 12/11/17 19:05 12/11/17 19:05 Period Temp Pulse Resp BP Sys/Marino Pulse Ox Last 24 Hr 96.9 F 73 18 110/52 93 Intake and Output 12/11/17 12/12/17 12/12/17 21:59 05:59 13:59 Intake Total 854 / 854 354 / 354 104 / 104 Output Total 900 / 900 Balance 854 / 854 -546 / -546 104 / 104 Weight 187 lb Intake & Output: Intake & Output 12/11/17 12/12/17 12/12/17 21:59 05:59 13:59 Intake Total 854 / 854 354 / 354 104 / 104 Output Total 900 / 900 Balance 854 / 854 -546 / -546 104 / 104 Weight 187 lb Intake: IV 54 / 54 154 / 154 104 / 104 Ampicillin 1 gm In Sodium 100 / 100 50 / 50 Chloride 0.9% 50 ml @ 100 mls/ hr IV Q6H [facility] Rx#:[id number] Cleocin 600 mg In Dextrose 5% 54 / 54 54 / 54 54 / 54 in Water 50 ml @ 100 mls/hr IV Q8H [facility] Rx#:[id number] Oral 800 / 800 200 / 200 Output: Void Amount 900 / 900 Other: Meal Dinner Percent of Meal Consumed 95% Feeding Ability Assist with Tray Set Up Stool Size Smear Stool Color Brown Stool Consistency Soft # Voids 1 # of times incontinent of 1 Bowels Exam: General: Sitting up in wheelchair distress Chest: Clear, good respiratory effort Cardiovascular: Regular Abdomen: Soft, no apparent tenderness Skin: Skin texture dry. No erythema, no rash. When excoriated lesion on distal right thigh from scratching. The bilateral lower extremities continue to have fading erythema, improving dermal edema. Neuro: Awake, oriented to self, very poor recall. Medical - PN: Obj Da - Labs CBC & Chem 7: 12/12/17 04:46 Labs: Abnormal Lab Results 12/12/17 04:46 BUN 31 H Creatinine 1.4 H Meds: Medications Acetaminophen (Tylenol) 650 mg PO Q6HP PRN PRN Reason: PAIN/FEVER > 101 Hydrocodone Bitart/Acetaminophen ([place] 5/325mg) 0.5 - 1 tab PO Q4-6HP PRN PRN Reason: Pain Last Admin: 12/12/17 00:51 Dose: 0.5 tab Aspirin (Aspirin) 81 mg PO DAILY [facility] Last Admin: 12/12/17 09:32 Dose: 81 mg Calcium Carbonate/Glycine (Tums) 1,000 mg CHEWED TIDCC [facility] Last Admin: 12/12/17 09:31 Dose: 1,000 mg Carvedilol (Coreg) 6.25 mg PO BIDCC [facility] Last Admin: 12/12/17 09:31 Dose: 6.25 mg Enoxaparin Sodium (Lovenox) 30 mg SQ DAILY [facility] Last Admin: 12/12/17 09:31 Dose: 30 mg Fluoxetine HCl (Prozac) 20 mg PO DAILY [facility] Last Admin: 12/12/17 09:31 Dose: 20 mg Furosemide (Lasix) 60 mg PO DAILY [facility] Last Admin: 12/12/17 09:32 Dose: 60 mg Furosemide (Lasix) 40 mg PO HS [facility] Last Admin: 12/11/17 22:22 Dose: 40 mg Ampicillin Sodium 1 gm/ Sodium (Chloride) 50 mls @ 100 mls/hr IV Q6H [facility] Last Infusion: 12/12/17 06:08 Dose: Infused Clindamycin Phosphate 600 mg/ (Dextrose) 54 mls @ 100 mls/hr IV Q8H [facility] Last Infusion: 12/12/17 06:40 Dose: Infused Lactobacillus Rhamnosus (Culturelle) 1 cap PO BID [facility] Last Admin: 12/12/17 09:31 Dose: 1 cap Loperamide HCl (Imodium) 2 mg PO Q6H PRN PRN Reason: Diarrhea Magnesium Hydroxide (Milk Of Magnesia) 30 ml PO DAILYP PRN PRN Reason: Constipation Ondansetron HCl (Zofran Odt) 4 mg SL Q4-6HP PRN PRN Reason: Nausea And Vomiting Oxandrolone (Oxandrin) 5 mg PO BID [facility] Last Admin: 12/12/17 09:31 Dose: 5 mg Potassium Chloride (Kdur) 10 meq PO BID [facility] Last Admin: 12/12/17 09:32 Dose: 10 meq Silver Sulfadiazine (Silvadene) 1 dose TOPICAL DAILY [facility] Last Admin: 12/12/17 09:32 Dose: 1 dose Sodium Chloride (Saline Flush) 10 ml IV Q8 [facility] Last Admin: 12/12/17 05:38 Dose: 10 ml Sodium Chloride (Saline Flush) 10 ml IV Q8 [facility] Last Admin: 12/12/17 06:08 Dose: 10 ml Vitamin D (Vitamin D3) 1,000 unit PO QDAY [facility] Last Admin: 12/12/17 09:31 Dose: 1,000 unit Medical - PN: A/P (1) Cellulitis Status: Acute Current Visit: No (2) CHF (congestive heart failure) Status: Chronic Current Visit: No (3) Lower extremity edema Status: Chronic Current Visit: No (4) Chronic kidney disease Status: Chronic Current Visit: No - Narrative A/P Narrative: 87-year-old medically complex and frail patient with ongoing need for skilled therapy for lower extremity edema and cellulitis and leg wounds. She has been admitted to swing bed for further antibiotic therapy, skilled wound care and skilled PT and OT. Cellulitis bilateral lower extremities, worse on the left than the right. Slowly improving. Etiology is secondary to chronic lower extremity edema. She previously failed outpatient therapy, so high risk for relapse without further skilled therapies on swing bed. Plan: Continue with clindamycin and ampicillin. Elevate lower extremities to reduce edema. Continue to diuresis as her renal function allows. Continue with local wound care, dressing changes as well as PT/OT. Congestive heart failure with low normal LV systolic function. Also with pulmonary hypertension and RV volume overload complicating diuresis for her lower extremity edema. He is partially preload dependent. Clinically improved as an inpatient, however had worsening creatinine and aggressiveness of diuresis had to be decreased. On oral diuretic, will be followed closely, may need intermittent doses of intravenous diuretic as well. Plan: Continue with carvedilol, continue with oral diuretic, follow her creatinine, intake and output and exam, consider further intravenous diuresis if worsening edema. Pruritus. most consistent with xerosis. No evidence of a contact dermatitis, doubt antibiotic reaction without evidence of a maculopapular rash. Plan: Emollients. Urinary tract infection. Streptococcus (group B) and 30-40K CFU/mL enterococcus on culture. Final micro-from inpatient admission results obtained , enterococcus is pansensitive. Patient is on ampicillin for both cellulitis and enterococcal/cryptococcal urinary tract infection. Chronic kidney disease. At worsening renal function with diuresis as an inpatient. We'll need to follow creatinine with oral diuretic. Plan: Trend creatinine. Dementia with profound memory loss. Generally pleasant, but remains at risk for delirium. Plan: Supportive care. Prophylaxis: Lovenox, dosed renally. CODE STATUS: DO NOT RESUSCITATE. Medical - PN: Qual - VTE Deep Vein Thrombosis/Pulmonary Embolism Present on Admission: No
[2017-12-12] MEDS: FUROSEMIDE 40 MG TABLET PO SCH (21:38)
[2017-12-13] MEDS: HYDROcodone/APAP 5/325MG TABLET PO PRN (04:37)
[2017-12-13] MEDS: AMPICILLIN SODIUM 1 GM in 0.9 % SODIUM CHLORIDE 50 ML IV SCH ×4 (05:42→23:52)
[2017-12-13] MEDS: 0.9 % SODIUM CHLORIDE 10 ML SYRINGE IV SCH ×6 (05:46→22:01)
[2017-12-13 05:58] LABS: Basophils # (Auto) 0 K/mcL (0.0-0.3); Basophils % (Auto) 0.2 % (0.0-2.0); Eosinophils # (Auto) 1.2 K/mcL (0.0-0.7); Eosinophils % (Auto) 10.8 % (0.0-7.0); Granulocytes % (Auto) 69.5 % (38.0-78.0); Lymphocytes # (Auto) 1.3 K/mcL (1.5-4.8); Mean Corpuscular Hemoglobin 25.1 pg (26.0-34.0); Monocytes # (Auto) 0.8 K/mcL (0.1-0.9); Monocytes % (Auto) 7.5 % (1.0-12.0); Platelet Count 480 K/mcL (140-440); Red Cell Distribution Width 17.3 % (11.5-14.5)
[2017-12-13] MEDS: CLINDAMYCIN 600 MG in DEXTROSE 5% IN WATER 50 ML IV SCH ×3 (06:26→21:56)
[2017-12-13 06:42] LABS: ALT/SGPT 20 U/l (0-40); Albumin 2.6 gm/dL (3.2-5.2); Albumin/Globulin Ratio 0.8 (1.0-2.3); Alkaline Phosphatase 63 U/L (39-117); Bilirubin,Direct < 0.2 mg/dL (0.0-0.3); Blood Urea Nitrogen 36 mg/dl (8-23); Gamma Glutamyl Transpeptidase 20 U/L (5-36); Uric Acid 8.9 mg/dL (2.5-8.0)
[2017-12-13] MEDS: LACTOBACILLUS 1 CAPSULE PO SCH ×2 (08:30→20:42)
[2017-12-13] MEDS: VITAMIN D3 1,000 UNIT TABLET PO SCH (08:30)
[2017-12-13] MEDS: POTASSIUM CHLORIDE 10 MEQ TABLET PO SCH ×2 (08:30→20:42)
[2017-12-13] MEDS: CARVEDILOL 3.125 MG TABLET PO SCH ×2 (08:30→17:34)
[2017-12-13] MEDS: FLUoxetine HCL 20 MG CAPSULE PO SCH (08:30)
[2017-12-13] MEDS: ENOXAPARIN 30 MG/0.3 ML SYRINGE SQ SCH (08:30)
[2017-12-13] MEDS: FUROSEMIDE 20 MG TABLET PO SCH (08:30)
[2017-12-13] MEDS: ASPIRIN 81 MG TAB.CHEW PO SCH (08:30)
[2017-12-13] MEDS: CALCIUM CARBONATE 500 MG TAB.CHEW CHEWED SCH ×3 (08:30→17:34)
[2017-12-13] MEDS: OXANDROLONE 2.5 MG TABLET PO SCH ×2 (11:30→20:42)
[2017-12-13] MEDS: SILVER SULFADIAZINE CREAM.TOP 400GM TOPICAL SCH (12:30)
[2017-12-13] MEDS: SILVER SULFADIAZINE CREAM.TOP 25GM TOPICAL SCH (14:27)
--- NOTE | 2017-12-13 17:24 | General Surgery Consult Note ---
History of Present Illness Patient information: Note initiated : 12/13/17 at 5:22 pm Service Date, if different from initiated Date: [] Patient: Rabia Seals 87 y/o F admitted on 12/10/17 for Cellulitis . Chief Complaint: [] History of present illness: Continuation of ongoing wound care; Patient transitioned from acute Med-Surg to Swing Bed Status. Medications and Allergies Home Medications Medication Instructions Recorded Confirmed Type Furosemide [Lasix] 40 mg PO HS 04/17/16 12/10/17 History cholecalciferol (vitamin D3) 1,000 1,000 unit PO QDAY 90 Days #90 tab 08/10/16 12/10/17 History unit tablet aspirin 81 mg tablet,delayed 81 mg PO DAILY #90 tab 09/14/16 12/10/17 Rx release Acetaminophen [Tylenol] 650 mg PO Q6HP PRN tab 07/20/17 12/10/17 Rx Calcium Carbonate [Tums] 1,000 mg CHEWED TIDCC 07/20/17 12/10/17 Rx Carvedilol [Coreg] 6.25 mg PO BIDCC #1 tab 07/20/17 12/10/17 Rx HYDROcodone/APAP 5/325MG [[place] 0.5 - 1 tab PO Q4-6HP PRN #20 07/20/17 12/10/17 Rx 5-325Mg] Loperamide [Imodium] 2 mg PO Q6H PRN #30 cap 07/20/17 12/10/17 Rx Magnesium Hydroxide [Milk of 30 ml PO DAILYP PRN 07/20/17 12/10/17 Rx Magnesia] Ondansetron HCl [Zofran ODT] 4 mg SL Q4-6HP PRN #1 tab 07/20/17 12/10/17 Rx potassium chloride ER 10 mEq 10 meq PO BID #30 tab 08/26/17 12/10/17 Rx tablet,extended release FLUoxetine HCL [Prozac] 20 mg PO DAILY 12/06/17 12/10/17 History Furosemide [Lasix] 60 mg PO DAILY 12/06/17 12/10/17 History 0.9 % Sodium Chloride [Saline 10 ml IV Q8 syringe 12/10/17 12/10/17 Rx Flush] Ampicillin Sodium [Ampicillin] 1 gm IV Q6H vial 12/10/17 12/10/17 Rx Clindamycin [Cleocin] 600 mg IV Q8H vial 12/10/17 12/10/17 Rx Enoxaparin [Lovenox] 30 mg SQ DAILY syringe 12/10/17 12/10/17 Rx Lactobacillus [Culturelle] 1 cap PO BID capsule 12/10/17 12/10/17 Rx Magnesium Hydroxide [Milk of 30 ml PO DAILYP PRN oral.susp 12/10/17 12/10/17 Rx Magnesia] Oxandrolone [Oxandrin] 5 mg PO BID tablet 12/10/17 12/10/17 Rx Silver Sulfadiazine [Silvadene] 1 dose TOPICAL DAILY cream.top 12/10/17 Rx Allergies Allergy/AdvReac Type Severity Reaction Status Date / Time No Known Drug Allergies Allergy Verified 12/06/17 11:02 Exam Temp Pulse Resp BP Pulse Ox 97.7 F 61 16 122/68 96 12/13/17 07:08 12/12/17 20:00 12/13/17 07:08 12/13/17 07:08 12/13/17 08:00 - General physical appearance well developed, no distress, chronically ill - Eyes PERRL, normal ocular movement - ENT normal pinna, normal mucosa, no congestion - Head Head exam IM: Present: atraumatic, normal inspection, normocephalic - Neck no masses, trachea midline, no venous distension - Cardiovascular Cardiovascular exam IM: Present: normal rate and rhythm - Respiratory normal expansion - Abdomen Abdomen: Present: soft, non tender, bowel sounds - Integumentary Present: other (RESOLVING CELLULTIS / DERMATITIS AND EDEMA OF BOTH LOWER EXTREMITIES. NO skin ulcers. Desqumating epithelial flakes with resolution of edema.) - Neurologic Present: normal coordination, confused, other (No interval changes. No localising neurological deficits. ) - Musculoskeletal Present: other (Bed confined. Sits up in chair at times. ) - Psychiatric Present: other (Comfortable. Pleasantly confused. At base line. No new changes. ) Results - Labs 12/13/17 04:42 12/13/17 04:42 Abnormal lab results 12/13/17 12/13/17 Range/Units 04:42 04:42 WBC 11.2 H (4.5-11.0) K/mcL RBC 3.50 L (4.00-5.20) M/mcL Hgb 8.8 L (12.0-15.0) g/dL Hct 26.6 L (36.0-48.0) % MCV 76.0 L (80.0-100.0) fL MCH 25.1 L (26.0-34.0) pg RDW 17.3 H (11.5-14.5) % Plt Count 480 H (140-440) K/mcL MPV 6.4 L (7.4-10.4) fL Lymph % (Auto) 12.0 L (15.5-49.0) % Eos % (Auto) 10.8 H (0.0-7.0) % Lymph # (Auto) 1.3 L (1.5-4.8) K/mcL Eos # (Auto) 1.2 H (0.0-0.7) K/mcL BUN 36 H (8-23) mg/dl Creatinine 1.6 H (0.6-1.1) mg/dl Uric Acid 8.9 H (2.5-8.0) mg/dL Total Protein 5.8 L (5.9-8.4) gm/dL Albumin 2.6 L (3.2-5.2) gm/dL Albumin/Globulin Ratio 0.8 L (1.0-2.3) Diabetes panel 12/13/17 Range/Units 04:42 Sodium 137 (133-145) mmol/L Potassium 4.2 (3.3-5.1) mmol/L Chloride 101 (96-108) mmol/L Carbon Dioxide 23 (22-30) mmol/L BUN 36 H (8-23) mg/dl Creatinine 1.6 H (0.6-1.1) mg/dl Glucose 77 (70-105) mg/dL Calcium 8.8 (8.6-10.4) mg/dl AST 13 (0-37) U/l ALT 20 (0-40) U/l Alkaline Phosphatase 63 (39-117) U/L Total Protein 5.8 L (5.9-8.4) gm/dL Albumin 2.6 L (3.2-5.2) gm/dL Triglycerides 67 (<150) mg/dl Calcium panel 12/13/17 Range/Units 04:42 Calcium 8.8 (8.6-10.4) mg/dl Phosphorus 3.5 (2.7-4.5) mg/dL Albumin 2.6 L (3.2-5.2) gm/dL Pituitary panel 12/13/17 Range/Units 04:42 Sodium 137 (133-145) mmol/L Potassium 4.2 (3.3-5.1) mmol/L Chloride 101 (96-108) mmol/L Carbon Dioxide 23 (22-30) mmol/L BUN 36 H (8-23) mg/dl Creatinine 1.6 H (0.6-1.1) mg/dl Glucose 77 (70-105) mg/dL Calcium 8.8 (8.6-10.4) mg/dl Adrenal panel 12/13/17 Range/Units 04:42 Sodium 137 (133-145) mmol/L Potassium 4.2 (3.3-5.1) mmol/L Chloride 101 (96-108) mmol/L Carbon Dioxide 23 (22-30) mmol/L BUN 36 H (8-23) mg/dl Creatinine 1.6 H (0.6-1.1) mg/dl Glucose 77 (70-105) mg/dL Calcium 8.8 (8.6-10.4) mg/dl Total Bilirubin 0.2 (0.0-1.0) mg/dL AST 13 (0-37) U/l ALT 20 (0-40) U/l Alkaline Phosphatase 63 (39-117) U/L Total Protein 5.8 L (5.9-8.4) gm/dL Albumin 2.6 L (3.2-5.2) gm/dL All other labs normal. Assessment and Plan (1) Dermatitis Status: Acute Priority: Low Comment: Assessment:Resolving Dermatitis, Cellulitis and edema of both LE. Hypoproteinemia on Oxandrin. Responding to treatment. Plan: Continue present wound care therapy.
[2017-12-13] MEDS: FUROSEMIDE 40 MG TABLET PO SCH (20:42)
[2017-12-14] MEDS: 0.9 % SODIUM CHLORIDE 10 ML SYRINGE IV SCH ×3 (00:28→06:07)
[2017-12-14] MEDS: AMPICILLIN SODIUM 1 GM in 0.9 % SODIUM CHLORIDE 50 ML IV SCH ×2 (05:25→12:12)
[2017-12-14] MEDS: CLINDAMYCIN 600 MG in DEXTROSE 5% IN WATER 50 ML IV SCH (06:06)
[2017-12-14] MEDS: CARVEDILOL 3.125 MG TABLET PO SCH (08:06)
[2017-12-14] MEDS: CALCIUM CARBONATE 500 MG TAB.CHEW CHEWED SCH ×2 (08:06→12:12)
[2017-12-14] MEDS: FUROSEMIDE 20 MG TABLET PO SCH (09:09)
[2017-12-14] MEDS: ENOXAPARIN 30 MG/0.3 ML SYRINGE SQ SCH (09:09)
[2017-12-14] MEDS: OXANDROLONE 2.5 MG TABLET PO SCH (09:09)
[2017-12-14] MEDS: LACTOBACILLUS 1 CAPSULE PO SCH (09:10)
[2017-12-14] MEDS: POTASSIUM CHLORIDE 10 MEQ TABLET PO SCH (09:10)
[2017-12-14] MEDS: ASPIRIN 81 MG TAB.CHEW PO SCH (09:10)
[2017-12-14] MEDS: VITAMIN D3 1,000 UNIT TABLET PO SCH (09:10)
[2017-12-14] MEDS: SILVER SULFADIAZINE CREAM.TOP 400GM TOPICAL SCH (09:10)
[2017-12-14] MEDS: FLUoxetine HCL 20 MG CAPSULE PO SCH (09:10)
--- NOTE | 2017-12-14 12:42 | Discharge Summary ---
Medical - DS: Prov Patient information: Note initiated : 12/14/17 at 12:39 pm Service Date, if different from initiated Date: [] Patient: Rabia Seals 87 y/o F admitted on 12/10/17 for Cellulitis . Chief Complaint: [] Date of admission: 12/10/17 15:50 Discharge date: 12/14/17 Primary care physician: Krysten Romero Admitting clinician: Alphonso Magaña Discharging clinician: Alphonso Magaña Medical - DS: Meds - Discharge Medications Prescriptions: Amoxicillin/Potassium Clav [Augmentin] 875 mg PO Q12H #14 tab Doxycycline Hyclate [Morgidox] 100 mg PO BID #14 cap HYDROcodone/APAP 5/325MG [[place] 5-325Mg] 0.5 - 1 tab PO Q4HP PRN #40 tab PRN Reason: Pain Oxandrolone [Oxandrin] 5 mg PO BID #60 tab Active and Home Medications: Home Medications Furosemide [Lasix] 40 mg PO HS 04/17/16 [History Confirmed 12/10/17 Last Taken 07/12/17 08:00] cholecalciferol (vitamin D3) 1,000 unit tablet 1,000 unit PO QDAY 90 Days #90 tab 08/10/16 [History Confirmed 12/10/17 Last Taken 07/12/17 08:00] aspirin 81 mg tablet,delayed release 81 mg PO DAILY #90 tab 09/14/16 [Rx Confirmed 12/10/17 Last Taken 07/12/17 08:00] Acetaminophen [Tylenol] 650 mg PO Q6HP PRN tab 07/20/17 [Rx Confirmed 12/10/17 Last Taken Unknown] Calcium Carbonate [Tums] 1,000 mg CHEWED TIDCC 07/20/17 [Rx Confirmed 12/10/17 Last Taken Unknown] Carvedilol [Coreg] 6.25 mg PO BIDCC #1 tab 07/20/17 [Rx Confirmed 12/10/17 Last Taken Unknown] HYDROcodone/APAP 5/325MG [[place] 5-325Mg] 0.5 - 1 tab PO Q4-6HP PRN #20 07/20/17 [Rx Confirmed 12/10/17 Last Taken Unknown] Loperamide [Imodium] 2 mg PO Q6H PRN #30 cap 07/20/17 [Rx Confirmed 12/10/17 Last Taken Unknown] Magnesium Hydroxide [Milk of Magnesia] 30 ml PO DAILYP PRN 07/20/17 [Rx Confirmed 12/10/17 Last Taken Unknown] Ondansetron HCl [Zofran ODT] 4 mg SL Q4-6HP PRN #1 tab 07/20/17 [Rx Confirmed Last Taken Unknown] potassium chloride ER 10 mEq tablet,extended release 10 meq PO BID #30 tab 08/26 [Rx Confirmed 12/10/17 Last Taken Unknown] FLUoxetine HCL [Prozac] 20 mg PO DAILY 12/06/17 [History Confirmed 12/10/17 Last Taken Unknown] Furosemide [Lasix] 60 mg PO DAILY 12/06/17 [History Confirmed 12/10/17 Last Taken Unknown] 0.9 % Sodium Chloride [Saline Flush] 10 ml IV Q8 syringe 12/10/17 [Rx Confirmed 12/10/17 Last Taken Unknown] Ampicillin Sodium [Ampicillin] 1 gm IV Q6H vial 12/10/17 [Rx Confirmed Last Taken Unknown] Clindamycin [Cleocin] 600 mg IV Q8H vial 12/10/17 [Rx Confirmed 12/10/17 Last Taken Unknown] Enoxaparin [Lovenox] 30 mg SQ DAILY syringe 12/10/17 [Rx Confirmed 12/10/17 Last Taken Unknown] Lactobacillus [Culturelle] 1 cap PO BID capsule 12/10/17 [Rx Confirmed Last Taken Unknown] Magnesium Hydroxide [Milk of Magnesia] 30 ml PO DAILYP PRN oral.susp 12/10/17 [ Rx Confirmed 12/10/17 Last Taken Unknown] Oxandrolone [Oxandrin] 5 mg PO BID tablet 12/10/17 [Rx Confirmed 12/10/17 Last Taken Unknown] Silver Sulfadiazine [Silvadene] 1 dose TOPICAL DAILY cream.top 12/10/17 [Rx Confirmed 12/10/17 Last Taken Unknown] Medical - DS: Hosp Hospital course: The patient's 87-year-old female with a history of chronic lower extremity edema , congestive heart failure, advanced dementia with poor memory, chronic kidney disease who was admitted to acute care secondary to worsening edema and cellulitis on her lower extremities. She underwent aggressive intravenous antibiotics and wound care as well as diuresis. Patient still requires skilled therapies, intravenous antibiotics for treatment of cellulitis, wound care, PT and OT strengthening. She was therefore, admitted to [facility] status at this facility. The patient continued to receive antibiotics for her UTI and cellutlitis, she was followed by Dr Shah, who continued her wound care The patient is not deemed stable for discharge from the hospital from the wound care prospective. patient will be discharged to SNF, she still has some erythema on both her lower extremities, will give additional 7 days of oral antibiotics at discharge. at the time of discharge, patient is asymmetric, tolerating by mouth diet well and has no acute complaints. Discharge diagnosis: Cellutlitis, UTI - Time Spent with Patient Total time spent providing and/or coordinating discharge services: Greater than 30 minutes Medical - DS: Exam - Constitutional Vitals: Vital Signs Temp Pulse Resp BP Pulse Ox 12/14/17 07:20 97.5 F 75 20 118/58 92 12/13/17 20:00 97.6 F 67 22 114/52 94 Intake and Output 12/13/17 12/14/17 12/14/17 21:59 05:59 13:59 Intake Total 1894 / 1894 329 / 329 54 / 54 Output Total 751 / 751 550 / 550 Balance 1143 / 1143 -221 / -221 54 / 54 Intake: IV 104 / 104 154 / 154 54 / 54 Ampicillin 1 gm In Sodium 50 / 50 100 / 100 Chloride 0.9% 50 ml @ 100 mls/ hr IV Q6H KLAUDIA Rx#:[id number] Cleocin 600 mg In Dextrose 5% 54 / 54 54 / 54 54 / 54 in Water 50 ml @ 100 mls/hr IV Q8H KLAUDIA Rx#:[id number] Oral 1190 / 1190 175 / 175 GI Tube Flush 600 / 600 Output: Void Amount 750 / 750 550 / 550 # of times incontinent of urine 1 / Other: Meal Dinner Percent of Meal Consumed 50% Feeding Ability Independent # Bowel Movements 1 # of times incontinent of 1 Bowels Weight 181 lb 8 oz Additional comments: Constitutional; Afebrile, cooperative, alert, not in distress. Eyes- No icterus, , No periorbital swelling Neck- Midline trachea, supple Respiratory system: Air Entry equal on both sides, No crackles or wheezing, no rhonchi. CVS- Rate rhythm regular, S1,S2 heard, no gallop, no rub. Abdomen- Soft nontender abdomen, no organomegaly, no tenderness, no guarding or rigidity, [employer]- AOOx2, moving all extremities, no gross focal deficit noted. Medical - DS: A/P - Patient/Caregiver Discharge Instructions Activity: as per physical therapy, increase activity as tolerated Diet: Low Sodium (2gm) Additional Instructions: Wound Care as per Dr. CALERO Take antibiotics for another 7 days. Follow-up with wound care in and 7 days Go to the emergency room if worsening symptoms, fever, chest pain, shortness of breath, or any other acute concerns. Follow-up with PCP in 2 weeks Prescriptions: Amoxicillin/Potassium Clav [Augmentin] 875 mg PO Q12H #14 tab Doxycycline Hyclate [Morgidox] 100 mg PO BID #14 cap HYDROcodone/APAP 5/325MG [[place] 5-325Mg] 0.5 - 1 tab PO Q4HP PRN #40 tab PRN Reason: Pain Oxandrolone [Oxandrin] 5 mg PO BID #60 tab Other Amb Orders: Wound Care Instructions Location: Determined By Patient - Follow up Plan Follow up with: Ned Calero MD [Physician] - Disposition: Xfer SNF Prognosis: Fair Rehab Potential: Fair I certify that the patient requires SNF services: Yes Overall status at discharge: patient is progressing back to baseline Medical - DS: Qual - VTE Deep Vein Thrombosis/Pulmonary Embolism Present on Admission: No
== END 2017-12-14 14:00 | DRG 603 ==
LOC: MEDSUR 15:50
PROVIDERS: ADMIT Internal Medicine; ATTEND Internal Medicine